=== PATIENT | female | born 1940 | race Caucasian/White ===

== ENCOUNTER 2016-08-23 21:55 | Emergency (ER) ==
[2016-08-23] MEDS ORDERED: ZOFRAN 4 MG/2 ML IVP STA ×2 (22:04→22:20)
--- NOTE | 2016-08-23 22:10 | ED.PDOC ---
General ED Provider: Dr. SHARMILA MANLEY Chief Complaint: Headache Stated Complaint: Patient is a 76 year old female how comes to the ER with Headache, nausea x 2 days she Vomited twice last night the started running a Fever started today with Body aches, Chills . She also feels weak. Time Seen by Physician: 22:22 Mode of Arrival: Wheelchair Information Source: Patient, Family Exam Limitations: No limitations Primary Care Provider: CHRISTIANO PAL Nursing and Triage Documentation Reviewed and Agree: Yes Neurological Complaint Exam - Headache Complaint/Exam Onset: Gradual Duration: 2 days Symptoms Are: Still present Timing: Constant Worst Headache Ever: No Initial Severity: Moderate Current Severity: Moderate Location: Right, Left, Frontal Character: Reports: Dull Aggravating: Reports: None Associated Signs and Symptoms: Reports: Nausea, Vomiting, Fever. Denies: Dizziness, Seizure, Sinus pressure, Neck pain, Neck stiffness, Decreased LOC, Visual changes Related History: Denies: Similar episode, Recent trauma, Remote trauma Related Surgical History: Reports: None SAH Risk Factors: Reports: None Meningitis Risk Factors: Reports: Elderly. Denies: Immune deficiency, IV drug abuse, Respiratory infection, Communal living, Alcohol abuse SDH Risk Factors: Reports: Elderly Normal Head CT Within Last 12 Months: No Fundoscopic Exam: Present: Normal Findings Papilledema Present: No Temporal Artery Tenderness: Present: None Sinus Tenderness: Present: None TMJ Tenderness: Present: None Glascow Coma Scale (see protocol): 15 Meningeal Signs Positive: No ROM Limited In: No Limitiations Focal Weakness: Present: None Focal Sensory Loss: Present: None Gait: Normal Nystagmus Present: No Gag Reflex Present: No [id number]: Normal Findings Romberg Test Positive: No Babinski Sign: Negative Right, Negative Left Heel to Toe Normal: No Differential Diagnoses: Tension Headache, Viral Syndrome Review of Systems - Review Of Systems Constitutional: Reports: Fever, Loss of appetite Eyes: Reports: No symptoms Ears, Nose, Mouth, Throat: Reports: No symptoms Respiratory: Reports: No symptoms Cardiac: Reports: No symptoms GI: Reports: Nausea, Vomiting : Reports: No symptoms Musculoskeletal: Reports: No symptoms Skin: Reports: No symptoms All Other Systems: Reviewed and Negative Past Medical History - Past Medical History Endocrine: Reports: None Cardiovascular: Reports: None Respiratory: Reports: None Hematological: Reports: None Gastrointestinal: Reports: None Genitourinary: Reports: None Neuro/Psych: Reports: Migraine, Anxiety, Depression Musculoskeletal: Reports: Arthritis (chronic neck pain ) Cancer: Reports: None Last Menstrual Period: 1965 - Surgical History General Surgical History: Reports: Hysterectomy, Appendectomy, Tonsillectomy, Back Surgery - Family History Family History: Reports: None - Social History Smoking Status: Former smoker Hx Substance Use: No Alcohol Screening: None - Immunizations Tetanus Shot up to Date: Yes Physical Exam - Physical Exam Appearance: Ill-appearing, Thin Ill-appearing: Moderate Pain Distress: Mild Eyes: JAVIER, EOMI, Conjunctiva clear ENT: Ears normal, Nose normal, Oropharynx normal Neck: Supple (no rigitidy) Respiratory: Airway patent, Breath sounds clear, Breath sounds equal, Respirations nonlabored Cardiovascular: Tachycardia GI/: Soft, Nontender, No masses Musculoskeletal: Normal strength, ROM intact, No edema, No calf tenderness Skin: Warm, Dry Neurological: Sensation intact, Motor intact, Reflexes intact, Cranial nerves intact, Alert, Oriented Psychiatric: Anxious Interpretation - Radiology Interpretation Radiology Interpretation By: Radiologist Radiology Results: Negative Exam Interpreted: CT Scan Radiology Interpretation By: ED Physician Radiology Results: Negative Exam Interpreted: CXR Critical Care Note - Critical Care Note Total Time (mins): 0 Course - Course Hematology/Chemistry: 08/23/16 22:30 08/23/16 22:30 Orders, Labs, Meds: Lab Review 08/23/16 08/23/16 22:30 22:40 WBC 16.57 H RBC 3.88 L Hgb 11.5 L Hct 34.9 L MCV 89.9 MCH 29.6 MCHC 33.0 RDW Coeff of Ella 15.0 H Plt Count 226 Immature Gran % (Auto) 0.5 Neut % (Auto) 81.9 Lymph % (Auto) 8.5 L [place] % (Auto) 7.4 Eos % (Auto) 1.3 Baso % (Auto) 0.4 Immature Gran # (Auto) 0.1 Neut # 13.6 H Lymph # 1.4 [place] # 1.2 Eos # 0.2 Baso # 0.1 Sodium 138 Potassium 3.2 L Chloride 101 Carbon Dioxide 26 Anion Gap 14.2 BUN 18 Creatinine 1.21 Estimated GFR (MDRD) 43.00 BUN/Creatinine Ratio 14.87 Glucose 149 H Calcium 8.7 Total Bilirubin 0.33 AST 16 ALT 12 Alkaline Phosphatase 94 Total Protein 7.2 Albumin 3.4 Globulin 3.8 Albumin/Globulin Ratio 0.89 Urine Color Yellow Urine Clarity Cloudy Urine pH 6.5 Ur Specific [place] 1.015 Urine Protein 2+ Urine Glucose (UA) Trace Urine Ketones Negative Urine Blood 1+ Urine Nitrite Positive Urine Bilirubin Negative Urine Urobilinogen 1.0 Ur Leukocyte Esterase 1+ Urine Microscopic RBC 5-10 Urine Microscopic WBC 5-10 Ur Squamous Epith Cells 2-5 Urine Bacteria 4+ Influenza A (Rapid) Negative Influenza B (Rapid) Negative Orders Category Date Time Status ED IV/MEDIPORT/POWERPORT .ONCE EMERGENCY 08/23/16 22:19 Active BLOOD CULTURE Stat LAB 08/23/16 22:30 Received CBC W/ AUTO DIFF Stat LAB 08/23/16 22:30 Completed COMPREHENSIVE METABOLIC PANEL Stat LAB 08/23/16 22:30 Completed MOLECULAR GROUP A STREP Stat LAB 08/23/16 22:30 Results RAPID FLU A/B Stat LAB 08/23/16 22:30 Completed STREP SCREEN Stat LAB 08/23/16 22:30 Results URINALYSIS C & S IF INDICATED Stat LAB 08/23/16 22:40 Completed URINE CULTURE Routine LAB 08/23/16 22:57 Received 0.9 % Sodium Chloride [Saline Flush] MEDS 08/23/16 22:20 Discontinued 1 syr IVF PRN PRN Acetaminophen [Tylenol] MEDS 08/23/16 22:19 Discontinued 1,000 mg PO ONCE STA Levofloxacin/D5w [Levaquin] 100 ml MEDS 08/23/16 23:28 Discontinued IV .STK-MED Levofloxacin/D5w [Levaquin] 500 mg MEDS 08/23/16 23:18 Discontinued Premix 100 ml D5w 1 bag IV ONCE Ondansetron HCl/Pf [Zofran 4 mg/2 ml] MEDS 08/23/16 22:20 Discontinued 4 mg IVP ONCE STA Sodium Chloride 0.9% [Sodium Chloride] 1,000 ml MEDS 08/23/16 22:20 Discontinued IV BOLUS CHEST, 2 VIEWS PA & LAT Stat RADS 08/23/16 22:[address] HEAD W/O CONTRAST Stat RADS 08/23/16 22:02 Completed Medications Discontinued Medications Generic Name Dose Route Start Last Admin Trade Name Freq PRN Reason Stop Dose Admin Acetaminophen 1,000 mg 08/23/16 22:19 08/23/16 22:28 Tylenol PO 08/23/16 22:20 1,000 mg ONCE STA Administration Sodium Chloride 1,000 mls @ 1,000 mls/hr 08/23/16 22:20 08/23/16 22:55 Sodium Chloride IV 08/23/16 23:19 1,000 mls/hr BOLUS STA Administration Levofloxacin/Dextrose 500 mg/ 100 mls @ 100 mls/hr 08/23/16 23:18 08/23/16 23 :37 Dextrose IV 08/24/16 00:17 100 mls/hr ONCE STA Administration Ondansetron HCl 4 mg 08/23/16 22:20 08/23/16 22:55 Zofran 4 Mg/2 Ml IVP 08/23/16 22:21 4 mg ONCE STA Administration Sodium Chloride 1 syr 08/23/16 22:20 08/23/16 22:55 Saline Flush IVF 1 syr PRN PRN Administration To flush IV Vital Signs: Temp Pulse Resp BP Pulse Ox 08/24/16 00:31 99.4 F 08/23/16 21:56 102.8 F H 112 H 20 135/81 94 L Departure - Departure Time of Disposition: 23:48 Disposition: HOME SELF-CARE Discharge Problem: Urinary tract infection Instructions: Urinary Tract Infection in Women (ED) Condition: Stable Pt referred to PMD for follow-up: Yes Additional Instructions: Push fluids Take medication as prescribed. Follow up with PCP in the morning return if worse. Prescriptions: Levofloxacin [Levaquin] 500 mg PO DAILY #7 tablet Tramadol HCl [Ultram] 25 mg PO Q6H PRN #10 tablet PRN Reason: Severe Pain Allergies/Adverse Reactions: Allergies amoxicillin Adverse Reaction (Verified 08/23/16 22:04) Rash codeine Adverse Reaction (Verified 08/23/16 22:04) gets gas Home Medications: Ambulatory Orders Calcium Carbonate [Calcium] 500 mg PO DAILY 08/23/16 Escitalopram Oxalate [Lexapro] 5 mg PO DAILY 08/23/16 Gabapentin [Neurontin] 200 mg PO BID 08/23/16 Levofloxacin [Levaquin] 500 mg PO DAILY #7 tablet 08/23/16 Multivitamin 1 cap PO DAILY 08/23/16 Omeprazole [Prilosec] 20 mg PO QDAC 08/23/16 Oxybutynin Chloride [Ditropan] 5 mg PO DAILY 08/23/16 Tramadol HCl [Ultram] 25 mg PO Q6H PRN #10 tablet 08/23/16 Tramadol HCl [Ultram] 50 mg PO BID 08/23/16 Disposition Discussed With: Patient, Family
[2016-08-23 22:11] VITALS: BP 135/81; BMI 21.8
[2016-08-23] MEDS ORDERED: ZOFRAN 4 MG/2 ML IM STA (22:13)
[2016-08-23] MEDS ORDERED: TYLENOL PO STA (22:19)
[2016-08-23] MEDS ORDERED: SODIUM CHLORIDE 1,000 ML IV STA (22:20)
[2016-08-23 22:39] LABS: BASOPHILS # (AUTO) 0.1 K/uL (0-0.2); BASOPHILS % (AUTO) 0.4 % (0.0-3.0); EOSINOPHILS # (AUTO) 0.2 K/ul (0.0-0.7); EOSINOPHILS % (AUTO) 1.3 % (0.0-7.0); HEMATOCRIT 34.9 % (37.0-47.0); HEMOGLOBIN 11.5 g/dl (12.0-16.0); IMMATURE GRANULOCYTE % (AUTO) 0.5 % (0.0-5.0); LYMPHOCYTES # (AUTO) 1.4 K/uL (0.60-3.4); LYMPHOCYTES % (AUTO) 8.5 (10.0-50.0); MEAN CORPUSCULAR HEMOGLOBIN 29.6 pg (27.0-31.0); MEAN CORPUSCULAR VOLUME 89.9 fl (81.0-99.0); MONOCYTES # (AUTO) 1.2 K/uL (0.4-2.0); MONOCYTES % (AUTO) 7.4 (0-10); NEUTROPHILS # (AUTO) 13.6 K/ul (2.0-6.9); NEUTROPHILS % (AUTO) 81.9; PLATELET COUNT 226 10^3/uL (140-440); RED BLOOD COUNT 3.88 10^6/ul (4.20-5.40); WHITE BLOOD COUNT 16.57 K/ul (4.6-10.2)
[2016-08-23 22:57] LABS: ADD URINE MICROSCOPIC YES; BILIRUBIN,URINE Negative (NEGATIVE); KETONES,URINE Negative (NEGATIVE); LEUKOCYTE ESTERASE ,URINE 1+ (NEGATIVE); NITRITE,URINE Positive (NEGATIVE); PH,URINE 6.5 (5-9); PROTEIN,URINE 2+ (NEGATIVE); URINE, BLOOD 1+ (NEGATIVE)
[2016-08-23 23:01] LABS: ALBUMIN 3.4 g/dL (3.4-5.0); ALBUMIN/GLOBULIN RATIO 0.89; ANION GAP 14.2; BILIRUBIN,TOTAL 0.33 mg/dL (0.00-1.20); BUN/CREATININE RATIO 14.87; CALCIUM 8.7 mg/dL (8.2-10.2); CREATININE 1.21 mg/dL (0.60-1.30); POTASSIUM 3.2 mmol/L (3.5-5.10); TOTAL PROTEIN 7.2 g/dL (5.8-8.1)
[2016-08-23 23:03] LABS: FLU INTERNAL QC INTERNAL QC VALID; RAPID FLU A NEGATIVE (NEGATIVE); RAPID FLU B NEGATIVE (NEGATIVE)
[2016-08-23 23:05] LABS: BACTERIA,URINE 4+ (NOT PRESENT)
--- NOTE | 2016-08-23 23:16 | CT ---
EXAM: CT head without contrast . 08/23/2016. Sagittal and coronal reformatted images obtained HISTORY: Headache COMPARISON: 02/22/2016 FINDINGS: There is no evidence of intracranial hemorrhage. The midline is maintained. There is no hydrocephalus. Generalized atrophy. Patchy low attenuation throughout the periventricular and subc ortical white matter likely due to chronic microvascular ischemic change. No cerebellar tonsillar e ctopia. Evaluation of the calvarium shows no fracture. The mastoid air cells are normally pneumati zed. IMPRESSION: 1. No intracranial hemorrhage. 2. Generalized atrophy 3. Extensive patchy low attenuation throughout the periventricular and subcortical white matter lik leonid due to chronic microvascular ischemic change. 4. If there is high clinical suspicion for acute ischemia then MRI may be of benefit.
[2016-08-23] MEDS ORDERED: LEVAQUIN 500 MG in PREMIX 100 ML D5W 1 BAG IV STA (23:18)
[2016-08-23] MEDS ORDERED: LEVAQUIN 100 ML IV ONE (23:28)
[2016-08-24 00:31] VITALS: TEMP 99.4
--- NOTE | 2016-08-24 07:35 | DI ---
EXAM: CHEST FRONTAL AND LATERAL VIEWS HISTORY: Fever. COMPARISON: 12/25/2013 FINDINGS: Heart size remains within normal limits. There are scattered calcifications suggesting ol d granulomatous disease. No acute infiltrates are seen. There is no consolidation, visible pleural fluid or pneumothorax. Bones reveal no acute fracture. Metallic foreign bodies superimposed over t he right neck. This has the appearance of possible shrapnel. Correlate with history. IMPRESSION: No acute cardiopulmonary process.]
== END 2016-08-24 00:47 | disposition home or self-care (01) ==
LOC: ED 21:55
DX: N39.0 Urinary tract infection, site not specified (principal); R51 Headache; R11.2 Nausea with vomiting, unspecified; Z79.899 Other long term (current) drug therapy
CPT/HCPCS: 36415; 80053; 81001; 85025; 87040; 87086; 87186; 87651; 87804; 87880; 96361; 96365; 96375; 99283

== ENCOUNTER 2016-09-12 08:09 | Outpatient (CLI) ==
[2016-09-12 08:42] LABS: CREATININE 0.9 mg/dL (0.60-1.30)
--- NOTE | 2016-09-12 10:30 | CT ---
EXAM: CT soft tissue neck with contrast HISTORY: Supraclavicular mass COMPARISON: CT neck 10/31/[address] cervical spine 12/25/2013 TECHNIQUE: Serial axial images of the neck were obtained after 75 ml of Omnipaque IV contrast was a dministered. These were viewed in multiple planes. FINDINGS: Limited views of the intracranial contents demonstrate no abnormal contrast enhancing les ion. The orbital globes and retrobulbar structures are normal. The ethmoid air cells demonstrate m ild scattered mucosal thickening. The paranasal sinuses are otherwise clear. The mastoid air cells are clear. The visualized vessels contrast enhance normally. The right parotid and left parotid g lands are normal. The submandibular glands are normal. The thyroid is normal. There is a right pa ratracheal lymph node measuring 0.5 cm present on exam 2014. There is a pretracheal lymph node on i mage 74 measuring 0.8 cm in diameter. Mediastinum is otherwise unremarkable. There is a left supraclavicular focal rounded area of low attenuation fat measuring 5.2 x 3.3 cm unc hanged from 2012. No focal soft tissue is identified. The lungs are unremarkable. IMPRESSION: 1. 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 2. Paratracheal lymph nodes are stable since 2014.
== END 2016-09-12 08:10 | disposition home or self-care (01) ==
LOC: RAD 08:09
PROVIDERS: ATTEND Family Medicine
DX: R22.2 Localized swelling, mass and lump, trunk (principal)
CPT/HCPCS: 36415; 82565

== ENCOUNTER 2016-10-29 10:15 | Emergency (ER) ==
[2016-10-29 10:25] VITALS: BP 163/108; TEMP 97.5; BMI 22.8
[2016-10-29] MEDS ORDERED: NORCO 10-325 PO STA (10:33)
--- NOTE | 2016-10-29 10:53 | DI ---
Exam: Right knee four views History: Knee pain Findings / impression: No acute bony or articular abnormality. Mild tricompartmental osteoarthriti c change manifest by marginal osteophytosis. Spurring on the superior pole of the patellar tendon.
--- NOTE | 2016-10-29 11:10 | ED.PDOC ---
General ED Provider: Dr. MAIDA DAVILA Chief Complaint: Knee Pain/Injury Stated Complaint: knee pain Time Seen by Physician: 10:19 Mode of Arrival: Wheelchair Information Source: Patient, Family Exam Limitations: No limitations Primary Care Provider: CHRISTIANO PAL Nursing and Triage Documentation Reviewed and Agree: Yes Musculoskeletal Complaint Exam - Knee Pain Complaint/Exam Mechanism of Injury: Reports: No known trauma Onset/Duration: 1 day Symptoms Are: Still present Onset of Pain: Reports: Hours Initial Severity: Moderate Current Severity: Moderate Character: Reports: Throbbing, Spasmodic, Stiffness Alleviating: Reports: Rest, Position Aggravating: Reports: None Associated Signs and Symptoms: Denies: Swelling, Redness, Bruising, Fever, Weakness, Numbness, Tingling Able to Bear Weight: Yes Related History: Reports: Similar episode Septic Arthritis Risk Factors: Reports: None Gout Risk Factors: Reports: None Berta Test Positive: No Kurtis Test Positive: No Limited Range of Motion: Present: Active Differential Diagnoses: Closed Fracture, Internal Derangement, Sprain, Strain Review of Systems - Review Of Systems Constitutional: Reports: No symptoms Eyes: Reports: No symptoms Ears, Nose, Mouth, Throat: Reports: No symptoms Respiratory: Reports: No symptoms Cardiac: Reports: No symptoms GI: Reports: No symptoms : Reports: No symptoms Musculoskeletal: Reports: Joint pain Skin: Reports: No symptoms Neurological: Reports: No symptoms Endocrine: Reports: No symptoms Hematologic/Lymphatic: Reports: No symptoms All Other Systems: Reviewed and Negative Past Medical History - Past Medical History Endocrine: Reports: None Cardiovascular: Reports: None Respiratory: Reports: None Hematological: Reports: None Gastrointestinal: Reports: None Genitourinary: Reports: None Neuro/Psych: Reports: Migraine, Anxiety, Depression Musculoskeletal: Reports: Arthritis (chronic neck pain ) Cancer: Reports: None Last Menstrual Period: menopause - Surgical History General Surgical History: Reports: Hysterectomy, Appendectomy, Tonsillectomy, Back Surgery - Family History Family History: Reports: None - Social History Smoking Status: Former smoker Hx Substance Use: Yes (marijuana) Alcohol Screening: None - Immunizations Tetanus Shot up to Date: No Physical Exam - Physical Exam Appearance: Well-appearing, No pain distress, Well-nourished Eyes: JAVIER, EOMI, Conjunctiva clear ENT: Ears normal, Nose normal, Oropharynx normal Respiratory: Airway patent, Breath sounds clear, Breath sounds equal, Respirations nonlabored Cardiovascular: RRR, Pulses normal, No rub, No murmur GI/: Soft, Nontender, No masses, Bowel sounds normal, No Organomegaly Musculoskeletal: Limited ROM (right knee) Skin: Warm, Dry, Normal color Neurological: Sensation intact, Motor intact, Reflexes intact, Cranial nerves intact, Alert, Oriented Psychiatric: Affect appropriate, Mood appropriate Interpretation - Radiology Interpretation Radiology Interpretation By: Radiologist Radiology Results: No acute changes Critical Care Note - Critical Care Note Total Time (mins): 0 Course - Course Orders, Labs, Meds: Orders Category Date Time Status JORGE [ED JORGE WRAP] .ONCE EMERGENCY 10/29/16 11:11 Active Hydrocodone Bit/Acetaminophen [[place] 10-325] MEDS 10/29/16 10:33 Discontinued 1 tab PO ONCE STA KNEE, RIGHT 4 VIEWS Stat RADS 10/29/16 10:37 Completed Medications Discontinued Medications Generic Name Dose Route Start Last Admin Trade Name Freq PRN Reason Stop Dose Admin Acetaminophen/Hydrocodone Bitart 1 tab 10/29/16 10:33 10/29/16 10:47 [place] 10-325 PO 10/29/16 10:34 1 tab ONCE STA Administration Vital Signs: Temp Pulse Resp BP Pulse Ox 10/29/16 10:16 97.5 F L 75 20 163/108 H 98 Departure - Departure Time of Disposition: 11:09 Disposition: HOME SELF-CARE Discharge Problem: Knee pain Right knee pain Qualifiers: Chronicity: unspecified Qualifier Code: (M25.561) Pain in right knee Instructions: Knee Pain (ED), Arthralgia (ED) Condition: Good Pt referred to PMD for follow-up: No Additional Instructions: Please call your Family Physician as soon as possible to schedule a follow-up appointment. NORCO 5/325: 3 times a day for 5 days Allergies/Adverse Reactions: Allergies amoxicillin Adverse Reaction (Verified 10/29/16 10:26) Rash codeine Adverse Reaction (Verified 10/29/16 10:26) gets gas Home Medications: Ambulatory Orders Calcium Carbonate [Calcium] 500 mg PO DAILY 08/23/16 Escitalopram Oxalate [Lexapro] 5 mg PO DAILY 08/23/16 Gabapentin [Neurontin] 200 mg PO BID 08/23/16 Multivitamin 1 cap PO DAILY 08/23/16 Omeprazole [Prilosec] 20 mg PO QDAC 08/23/16 Oxybutynin Chloride [Ditropan] 5 mg PO DAILY 08/23/16 Tramadol HCl [Ultram] 25 mg PO DAILY 10/29/16
== END 2016-10-29 11:24 | disposition home or self-care (01) ==
LOC: ED 10:15
DX: M25.561 Pain in right knee (principal)
CPT/HCPCS: 99282

== ENCOUNTER 2016-11-17 13:03 | Outpatient (CLI) | payer OTHER | END 2016-11-17 13:04 | disposition home or self-care (01) | LOC: CAR 13:03 | PROVIDERS: ATTEND Family Medicine | DX: R06.02 Shortness of breath (principal) ==

== ENCOUNTER 2016-12-10 14:37 | Emergency (ER) | payer OTHER ==
[2016-12-10 14:42] VITALS: BP 141/73; TEMP 98.3; BMI 23.5
--- NOTE | 2016-12-10 14:44 | ED.PDOC ---
General ED Provider: Dr. MI SAENZ JR Chief Complaint: Cough Stated Complaint: sore throat, fever, cough with green phlegm. [ End ]1 week 98.3 94 20 94% 141/73 Time Seen by Physician: 14:44 Mode of Arrival: Walk-In Information Source: Patient Exam Limitations: No limitations Primary Care Provider: CHRISTIANO PAL Nursing and Triage Documentation Reviewed and Agree: No Review of Systems - Review Of Systems Constitutional: Reports: Malaise Eyes: Reports: No symptoms Ears, Nose, Mouth, Throat: Reports: No symptoms Respiratory: Reports: Cough Cardiac: Reports: No symptoms GI: Reports: No symptoms : Reports: No symptoms Musculoskeletal: Reports: No symptoms Skin: Reports: No symptoms Neurological: Reports: No symptoms Endocrine: Reports: No symptoms Hematologic/Lymphatic: Reports: No symptoms All Other Systems: Other Past Medical History - Past Medical History Endocrine: Reports: None Cardiovascular: Reports: None Respiratory: Reports: None Hematological: Reports: None Gastrointestinal: Reports: None Genitourinary: Reports: None Neuro/Psych: Reports: Migraine, Anxiety, Depression Musculoskeletal: Reports: Arthritis (chronic neck pain ), Back Pain Cancer: Reports: None Last Menstrual Period: none - Surgical History General Surgical History: Reports: Hysterectomy (1964), Appendectomy, Cholecystectomy, Tonsillectomy, Back Surgery - Family History Family History: Reports: None - Social History Smoking Status: Former smoker Hx Substance Use: Yes (marijuana) Alcohol Screening: None Physical Exam - Physical Exam Appearance: Well-appearing, Thin Pain Distress: Moderate Eyes: JAVIER, EOMI, Conjunctiva clear ENT: Ears normal, Nose normal, Oropharynx normal Neck: Supple Respiratory: Breath sounds diminished Cardiovascular: RRR, Pulses normal, No rub, No murmur GI/: Soft, Nontender, No masses, Bowel sounds normal, No Organomegaly Musculoskeletal: Normal strength, ROM intact, No edema, No calf tenderness Skin: Warm, Dry, Normal color Neurological: Sensation intact, Motor intact, Reflexes intact, Cranial nerves intact, Alert, Oriented Interpretation - Radiology Interpretation Radiology Interpretation By: Radiologist Radiology Results: Negative Exam Interpreted: CXR Critical Care Note - Critical Care Note Total Time (mins): 0 Course - Course Orders, Labs, Meds: Orders Category Date Time Status Ceftriaxone Sodium [Rocephin] MEDS 12/10/16 14:48 Discontinued 1 gm IM ONCE STA Lidocaine HCl/Pf [Lidocaine 1 % Amp 5 ml (Sutures)] MEDS 12/10/16 14:48 Discontinued 2.1 ml IM ONCE STA Methylprednisolone Sod Succ/Pf [Solu-Medrol 125 mg] MEDS 12/10/16 14:48 Discontinued 125 mg IM ONCE STA CHEST, 2 VIEWS PA & LAT Stat RADS 12/10/16 14:44 Completed Medications Discontinued Medications Generic Name Dose Route Start Last Admin Trade Name Tanvi PRN Reason Stop Dose Admin Ceftriaxone Sodium 1 gm 12/10/16 14:48 12/10/16 15:06 Rocephin IM 12/10/16 14:49 1 gm ONCE STA Administration Lidocaine HCl 2.1 ml 12/10/16 14:48 12/10/16 15:07 Lidocaine 1 % Amp 5 Ml (Sutures) IM 12/10/16 14:49 2.1 ml ONCE STA Administration Methylprednisolone Sodium Succinate 125 mg 12/10/16 14:48 12/10/16 15:07 Solu-Medrol 125 Mg IM 12/10/16 14:49 125 mg ONCE STA Administration Vital Signs: Temp Pulse Resp BP Pulse Ox 12/10/16 14:37 98.3 F 94 H 20 141/73 H 94 L Departure - Departure Time of Disposition: 15:13 Disposition: HOME SELF-CARE Discharge Problem: COPD (chronic obstructive pulmonary disease) with acute bronchitis Instructions: COPD (Chronic Obstructive Pulmonary Disease) (ED) Condition: Good Pt referred to PMD for follow-up: Yes Additional Instructions: call PMD this week for follow up return if short of air if fever over 101.0 Allergies/Adverse Reactions: Allergies amoxicillin Adverse Reaction (Verified 12/10/16 14:40) Rash codeine Adverse Reaction (Verified 12/10/16 14:40) gets gas Home Medications: Ambulatory Orders Calcium Carbonate [Calcium] 500 mg PO DAILY 08/23/16 Escitalopram Oxalate [Lexapro] 5 mg PO DAILY 08/23/16 Oxybutynin Chloride [Ditropan] 5 mg PO DAILY 08/23/16 Tramadol HCl [Ultram] 25 mg PO DAILY 10/29/16
[2016-12-10] MEDS ORDERED: ROCEPHIN IM STA (14:48)
[2016-12-10] MEDS ORDERED: SOLU-MEDROL 125 MG IM STA (14:48)
[2016-12-10] MEDS ORDERED: LIDOCAINE 1 % AMP 5 ML (SUTURES) IM STA (14:48)
--- NOTE | 2016-12-10 15:07 | DI ---
EXAM: PA and lateral views of the chest HISTORY: Cough COMPARISON: Chest Xray from 08/23/2016 FINDINGS: The examination is stable. Lungs are clear with no lobar consolidation, failure, large eff usion or significant atelectasis. There is prior granulomatous disease. The cardiomediastinal silhou ette is otherwise unremarkable. No acute osseous or soft tissue abnormalities. There has been prior right shoulder surgery and prior lumbar fusion. IMPRESSION: No active disease.
== END 2016-12-10 15:28 | disposition home or self-care (01) ==
LOC: ED 14:37
DX: J44.0 Chronic obstructive pulmonary disease with (acute) lower respiratory infection (principal); J20.9 Acute bronchitis, unspecified; Z79.899 Other long term (current) drug therapy
CPT/HCPCS: 96372; 99282

== ENCOUNTER 2017-01-05 18:45 | Emergency (ER) ==
[2017-01-05 18:48] VITALS: BP 160/75; TEMP 98.4; BMI 23.8
--- NOTE | 2017-01-05 19:11 | ED.PDOC ---
General ED Provider: Dr. ZULLY MORRISON Chief Complaint: Fall Stated Complaint: While shopping at [employer], she tripped over fell hurt back of the head. NO LOC, Time Seen by Physician: 19:09 Mode of Arrival: Walk-In Information Source: Patient Primary Care Provider: CHRISTIANO PAL Nursing and Triage Documentation Reviewed and Agree: Yes Trauma/Injury Complaint Exam - Head Injury Complaint/Exam Location of Pain: Reports: Scalp Mechanism of Injury: Reports: Trauma Symptoms Are: Still present Initial Severity: Mild Current Severity: None Character: Reports: Dull Aggravating: Reports: None Alleviating: Reports: None Associated Signs and Symptoms: Denies: Confusion, Memory loss, Seizure, Epistaxis, Dental malocclusion, Neck pain, Nausea, Vomiting Loss of Consciousness: None SDH Risk Factors: Present: None Cervical Spine Injury Risk Factors: Present: None Related Surgical History: Reports: None Head Injury Findings: Present: Normal findings Focal Weakness: Present: None Focal Sensory Loss: Present: None Gait: Normal Gag Reflex Present: Yes Finger to Nose: Normal Rhomberg Test Positive: No Babinski Sign: Negative Right, Negative Left Heel to Toe Normal: Yes Differential Diagnoses: Intracranial Bleed Review of Systems - Review Of Systems Constitutional: Reports: No symptoms Eyes: Reports: No symptoms Ears, Nose, Mouth, Throat: Reports: No symptoms Respiratory: Reports: No symptoms Cardiac: Reports: No symptoms GI: Reports: No symptoms : Reports: No symptoms Musculoskeletal: Reports: No symptoms Skin: Reports: No symptoms Neurological: Reports: Headache Endocrine: Reports: No symptoms Hematologic/Lymphatic: Reports: No symptoms All Other Systems: Reviewed and Negative Past Medical History - Past Medical History Previously Healthy: Yes Endocrine: Reports: None Cardiovascular: Reports: None Respiratory: Reports: None Hematological: Reports: None Gastrointestinal: Reports: None Genitourinary: Reports: None Neuro/Psych: Reports: Migraine, Anxiety, Depression Musculoskeletal: Reports: Arthritis (chronic neck pain ), Back Pain Cancer: Reports: None Last Menstrual Period: NONE - Surgical History General Surgical History: Reports: Hysterectomy (1964), Appendectomy, Cholecystectomy, Tonsillectomy, Back Surgery - Family History Family History: Reports: None - Social History Smoking Status: Former smoker Hx Substance Use: Yes (marijuana) Alcohol Screening: None Physical Exam - Physical Exam Appearance: Well-appearing, No pain distress, Well-nourished Eyes: JAVIER, EOMI, Conjunctiva clear ENT: Ears normal, Nose normal, Oropharynx normal Respiratory: Airway patent, Breath sounds clear, Breath sounds equal, Respirations nonlabored Cardiovascular: RRR, Pulses normal, No rub, No murmur GI/: Soft, Nontender, No masses, Bowel sounds normal, No Organomegaly Musculoskeletal: Normal strength, ROM intact, No edema, No calf tenderness Skin: Warm, Dry, Normal color Neurological: Sensation intact, Motor intact, Reflexes intact, Cranial nerves intact, Alert, Oriented Psychiatric: Affect appropriate, Mood appropriate Interpretation - Radiology Interpretation Radiology Interpretation By: Radiologist Radiology Results: Negative Exam Interpreted: CT Scan Critical Care Note - Critical Care Note Total Time (mins): 0 Course - Course Orders, Labs, Meds: Orders Category Date Time Status CT CERVICAL SPINE W/O CONTRAST Stat RADS 01/05/17 19:[address] HEAD W/O CONTRAST Stat RADS 01/05/17 19:08 Completed Vital Signs: Temp Pulse Resp BP Pulse Ox 01/05/17 18:45 98.4 F 86 16 160/75 H 95 Departure - Departure Time of Disposition: 19:54 Disposition: HOME SELF-CARE Discharge Problem: Falls Instructions: Fall Prevention for Older Adults (ED) Condition: Stable Pt referred to PMD for follow-up: No Additional Instructions: Fall precautions Monitor for 2-3 days Allergies/Adverse Reactions: Allergies amoxicillin Adverse Reaction (Verified 01/05/17 18:48) Rash codeine Adverse Reaction (Verified 01/05/17 18:48) gets gas Home Medications: Ambulatory Orders Calcium Carbonate [Calcium] 500 mg PO DAILY 08/23/16 Escitalopram Oxalate [Lexapro] 5 mg PO DAILY 08/23/16 Tramadol HCl [Ultram] 25 mg PO DAILY 10/29/16 Mirabegron [Myrbetriq] 25 mg PO DAILY 01/05/17 Disposition Discussed With: Patient, Family
--- NOTE | 2017-01-05 19:44 | CT ---
EXAM: CT of the head without contrast. HISTORY: Fall.. COMPARISON: 08/23/2016 TECHNIQUE: Contiguous axial images at 5 mm intervals were obtained from the base of the skull to th e vertex the calvarium. No contrast was given. FINDINGS: On the very first image, there is a metallic density adjacent to the zygomatic arch on th e left. This measures 1.4 mm. Prior facial bone CT demonstrated multiple fragments in the soft tis sues of the left side of the face. The CSF containing spaces are diffusely enlarged consistent with atrophy. There are no extraaxial fluid collections. There is no evidence of an acute intracranial hemorrhage. There are no masses or mass effect. Hypodensities are seen in the periventricular whi te matter consistent with chronic ischemic changes from small vessel disease. There are no acute va scular territory infarcts. Carotid artery and vertebral artery calcifications are seen. The osseo us structures are normal. The extracranial soft tissues are otherwise unremarkable. IMPRESSION: Chronic age-related changes. No acute abnormalities.
--- NOTE | 2017-01-05 19:49 | CT ---
EXAM: CT cervical spine. HISTORY: Fall, pain. TECHNIQUE: CT cervical spine without contrast. Detailed axial sections. Coronal and sagittal re-f ormations. COMPARISON: 12/25/2013 FINDINGS: Degenerative disc and facet disease is severe, noticeably increased since 2014. There is grossly st able anterior spondylolisthesis of C3 relative to C4 by about 0.27 cm. Reversal of normal cervical lordosis centered at C4. No acute fracture or significant loss of vertebral body height. Facet nereyda nts are covered. Lateral masses of C1 and C2 are normally aligned and the odontoid process is intact . Prevertebral soft tissue thickness is within normal limits. The degenerative changes lead to mul tilevel central canal and neural foraminal stenosis most apparent at C4/C5, moderate. No paraspinal hematoma is identified. Metallic soft tissue foreign bodies are again noted along the mid neck sug gesting shrapnel. IMPRESSION: No acute fracture. Severe degenerative changes worsened since previous exam.
== END 2017-01-05 20:04 | disposition home or self-care (01) ==
LOC: ED 18:45
DX: S09.90XA Unspecified injury of head, initial encounter (principal); W01.0XXA Fall on same level from slipping, tripping and stumbling without subsequent striking against object, initial encounter; Y92.512 Supermarket, store or market as the place of occurrence of the external cause; Z79.899 Other long term (current) drug therapy
CPT/HCPCS: 99283

== ENCOUNTER 2017-06-20 10:19 | Emergency (ER) ==
[2017-06-20 10:35] VITALS: BP 163/85; TEMP 98.6; BMI 23.5
--- NOTE | 2017-06-20 10:48 | ED.PDOC ---
General ED Provider: Dr. BEV VACA Chief Complaint: Fall Stated Complaint: Tripped over ledge, landed on upper left arm, jammed Left and Right wrist - last night Time Seen by Physician: 11:20 Mode of Arrival: Walk-In Information Source: Patient Exam Limitations: No limitations [facility] and Triage Documentation Reviewed and Agree: Yes Review of Systems - Review Of Systems Constitutional: Reports: No symptoms Ears, Nose, Mouth, Throat: Reports: No symptoms Respiratory: Reports: No symptoms Musculoskeletal: Reports: Joint pain (L and R wrist), Joint swelling (L wrist) Skin: Reports: Bruising (Upper Left arm) Neurological: Reports: No symptoms All Other Systems: Reviewed and Negative Past Medical History - Past Medical History Previously Healthy: Yes Endocrine: Reports: None Cardiovascular: Reports: None Respiratory: Reports: None Hematological: Reports: None Gastrointestinal: Reports: None Genitourinary: Reports: None Neuro/Psych: Reports: Migraine, Anxiety, Depression Musculoskeletal: Reports: Arthritis (chronic neck pain ), Back Pain Cancer: Reports: None Last Menstrual Period: unknown - Surgical History General Surgical History: Reports: Hysterectomy (1964), Appendectomy, Cholecystectomy, Tonsillectomy, Back Surgery - Family History Family History: Reports: None - Social History Smoking Status: Former smoker Hx Substance Use: Yes (marijuana) Alcohol Screening: None Physical Exam - Physical Exam Appearance: Well-appearing Pain Distress: Mild Eyes: JAVIER, EOMI, Conjunctiva clear ENT: Nose normal, Oropharynx normal Neck: Supple Respiratory: Airway patent, Breath sounds clear, Breath sounds equal Cardiovascular: RRR, Pulses normal Musculoskeletal: Limited ROM (Secondary to mild pain, L wrist, R wrist and L upper arm) Skin: Warm, Dry, Normal color Neurological: Sensation intact, Motor intact, Alert, Oriented Psychiatric: Affect appropriate, Mood appropriate Interpretation - Radiology Interpretation Radiology Interpretation By: Radiologist Radiology Results: Negative Exam Interpreted: Other (L humerus; R and L wrists) Xray Comments: No acute changes Critical Care Note - Critical Care Note Total Time (mins): 10 Course - Course Orders, Labs, Meds: Orders Category Date Time Status HUMERUS, LEFT 2VIEWS Stat RADS 06/20/17 10:44 Completed WRIST, LEFT 3 VIEWS Stat RADS 06/20/17 10:44 Completed WRIST, RIGHT 3 VIEWS Stat RADS 06/20/17 10:44 Completed Vital Signs: Temp Pulse Resp BP Pulse Ox 06/20/17 10:19 98.6 F 78 20 163/85 H 94 L Departure - Departure Time of Disposition: 11:39 Disposition: HOME SELF-CARE Discharge Problem: Contusion of arm, left Contusion Qualifiers: Encounter type: initial encounter Contusion area: wrist Instructions: Contusion in Adults (ED) Condition: Good Pt referred to PMD for follow-up: Yes (Call for appointment) Additional Instructions: Cold off and on first 24 hours to affected areas; heat thereafter. Tylenol and/ or Ibuprofen for discomfort Allergies/Adverse Reactions: Allergies amoxicillin Adverse Reaction (Verified 06/20/17 10:32) Rash codeine Adverse Reaction (Verified 06/20/17 10:32) gets gas Home Medications: Ambulatory Orders Calcium Carb/Vitamin D3/Vit K1 [Calcium + D Soft Chewable Tab] 1 each PO BID 02/22 Calcium Polycarbophil [Fiber Tabs] 500 mg PO TID 06/15/17 Ditropan Xl 5 mg PO d 06/15/17 Gabapentin 300 mg PO TID 06/15/17 Multivitamin [Multi-Day Vitamins] 1 each PO d 06/15/17 Omeprazole Magnesium [Prilosec Otc] 20 mg PO d 06/15/17 Disposition Discussed With: Patient, Family
--- NOTE | 2017-06-20 11:10 | DI ---
Exam: Two x-rays of the left humerus. Comparison: None available. Reason for exam: Fall. FINDINGS: The left humerus is intact. No evidence of fracture or malalignment. No unexplained calc ific soft tissue density or radiopaque retained foreign body. Impression: No acute fracture or malalignment in the left humerus
--- NOTE | 2017-06-20 11:12 | DI ---
EXAM: Left wrist three-view HISTORY: Fall COMPARISON: 09/27/2014 FINDINGS: No fracture or dislocation. Severe osteoarthritis throughout the wrist, greatest at the f irst CMC joint and radiocarpal articulations. Additionally, there is remodeling of the distal radius with widening of the scapholunate distance and displacement of the capitate into this region, consis tent with scapholunate advanced collapse. Well-marginated ossification about the posterior wrist appe ars unchanged and may be due to old trauma or ossification center. IMPERSSION: 1. No fracture or dislocation. 2. Severe osteoarthritis with scapholunate advanced collapse.
--- NOTE | 2017-06-20 11:12 | DI ---
Exam: Three x-rays of the right wrist. Comparison: 09/27/2014. Reason for exam: Fall. FINDINGS: No acute fracture or malalignment. Degenerative findings are seen in the wrist with joint space narrowing and sclerotic change in the right first carpometacarpal joint space. No unexplained calcific soft tissue density or radiopaque retained foreign body. Impression: 1. No obvious fracture or malalignment in the right wrist. 2. Moderate to marked degenerative disease within the wrist with joint space narrowing, sclerotic ch ethan, and subchondral cyst formation
== END 2017-06-20 12:17 | disposition home or self-care (01) ==
LOC: ED 10:19
DX: S40.022A Contusion of left upper arm, initial encounter (principal); S60.219A Contusion of unspecified wrist, initial encounter; W01.0XXA Fall on same level from slipping, tripping and stumbling without subsequent striking against object, initial encounter
CPT/HCPCS: 99283

== ENCOUNTER 2017-06-23 13:21 | Inpatient (IN) | payer OTHER ==
--- NOTE | 2017-06-23 13:28 | ED.PDOC ---
General ED Provider: Dr. ZULLY MORRISON Chief Complaint: Altered Mental Status Stated Complaint: Patient brought by family as she was having trouble talking and she was weak. Time Seen by Physician: 13:26 Primary Care Provider: ZULLY [facility] Nursing and Triage Documentation Reviewed and Agree: Yes Neurological Complaint Exam - Weakness Complaint/Exam Onset: Sudden Symptoms Are: Resolved Timing: Constant Episodes Lasting: Hours Initial Severity: Moderate Current Severity: Mild Character: Reports: Lightheaded Aggravating: Reports: None Alleviating: Reports: None Associated Signs and Symptoms: Reports: Unsteady gait, Loss of balance. Denies : Nausea, Vomiting, Diaphoresis, Tinnitus, Chest pain, Short of air, Palpitations, GI blood loss, Visual changes, Decreased oral intake, Change in medication, Change in diet, OTC meds Cardiac Risk Factors: Reports: Hypertension, Smoking CVA Risk Factors: Reports: Hypertension, Smoking Related Surgical History: Reports: None JVD Present: No Carotid Bruit Present: No Rectal Heme Positive: No Nystagmus Present: No Gag Reflex Present: Yes Meningeal Signs Positive: No Focal Weakness: Present: None Focal Sensory Loss: Present: None Gait: Unable [id number]: Normal Findings Romberg Test Positive: No Babinski Sign: Negative Right, Negative Left Differential Diagnoses: Metabolic abnormalities, Other (TIA) Quality Indicators for Cardiac Chest Pain: EKG in 10min., ASA if indicated Review of Systems - Review Of Systems Constitutional: Reports: Malaise, Weakness Eyes: Reports: No symptoms Ears, Nose, Mouth, Throat: Reports: No symptoms Respiratory: Reports: No symptoms Cardiac: Reports: No symptoms GI: Reports: No symptoms : Reports: No symptoms Musculoskeletal: Reports: No symptoms Skin: Reports: No symptoms Neurological: Reports: No symptoms Endocrine: Reports: No symptoms Hematologic/Lymphatic: Reports: No symptoms All Other Systems: Reviewed and Negative Past Medical History - Past Medical History Previously Healthy: Yes Endocrine: Reports: None Cardiovascular: Reports: None Respiratory: Reports: None Hematological: Reports: None Gastrointestinal: Reports: None Genitourinary: Reports: None Neuro/Psych: Reports: Migraine, Anxiety, Depression Musculoskeletal: Reports: Arthritis (chronic neck pain ), Back Pain Cancer: Reports: None - Surgical History General Surgical History: Reports: Hysterectomy (1965), Appendectomy, Cholecystectomy, Tonsillectomy, Back Surgery - Family History Family History: Reports: None - Social History Smoking Status: Former smoker Hx Substance Use: Yes (marijuana) Alcohol Screening: None Physical Exam - Physical Exam Appearance: Ill-appearing, Thin Eyes: EOMI, Conjunctiva clear ENT: Ears normal, Nose normal, Oropharynx normal Respiratory: Airway patent, Breath sounds clear, Breath sounds equal, Respirations nonlabored Cardiovascular: RRR, Pulses normal, No rub, No murmur GI/: Soft, Nontender, No masses, Bowel sounds normal, No Organomegaly Musculoskeletal: Normal strength, ROM intact, No edema, No calf tenderness Skin: Warm, Dry, Normal color Neurological: Sensation intact, Motor intact, Reflexes intact, Cranial nerves intact, Alert, Oriented Psychiatric: Affect appropriate, Mood appropriate Interpretation - Radiology Interpretation Radiology Interpretation By: Radiologist Radiology Results: Positive Exam Interpreted: CT Scan Critical Care Note - Critical Care Note Total Time (mins): 30 Course - Course Hematology/Chemistry: 06/23/17 13:26 06/23/17 13:26 Orders, Labs, Meds: Lab Review 06/23/17 06/23/17 13:26 13:26 WBC 9.14 RBC 4.22 Hgb 13.4 Hct 40.1 MCV 95.0 MCH 31.8 H MCHC 33.4 RDW Coeff of Ella 13.2 Plt Count 261 Immature Gran % (Auto) 0.3 Neut % (Auto) 53.1 Lymph % (Auto) 33.8 [place] % (Auto) 7.4 Eos % (Auto) 4.7 Baso % (Auto) 0.7 Immature Gran # (Auto) 0.0 Neut # 4.9 Lymph # 3.1 [place] # 0.7 Eos # 0.4 Baso # 0.1 Sodium 141 Potassium 3.4 L Chloride 101 Carbon Dioxide 27 Anion Gap 16.4 BUN 9 Creatinine 1.01 Estimated GFR (MDRD) 53.00 BUN/Creatinine Ratio 8.91 Glucose 125 H Calcium 9.0 Total Bilirubin 0.51 AST 24 ALT 28 Alkaline Phosphatase 121 Total Creatine Kinase 39 Troponin I < 0.0100 Total Protein 7.5 Albumin 3.8 Globulin 3.7 Albumin/Globulin Ratio 1.03 Salicylate Level mg/dL < 5.0 Orders Category Date Time Status EKG-(ED ONLY) Stat CARDIO 06/23/17 13:25 Completed ED IV/MEDIPORT/POWERPORT .ONCE EMERGENCY 06/23/17 13:23 Active ASPIRIN LEVEL [SALICYLATE] Stat LAB 06/23/17 13:26 Completed CBC W/ AUTO DIFF Stat LAB 06/23/17 13:26 Completed COMPREHENSIVE METABOLIC PANEL Stat LAB 06/23/17 13:26 Completed CREATINE KINASE Stat LAB 06/23/17 13:26 Completed TROPONIN I Stat LAB 06/23/17 13:26 Completed UA [URINALYSIS C & S IF INDICATED] Stat LAB 06/23/17 13:40 Uncollected URINALYSIS C & S IF INDICATED Stat LAB 06/23/17 13:25 Uncollected 0.9 % Sodium Chloride [Saline Flush] MEDS 06/23/17 13:23 Ordered 1 syr IVF PRN PRN Aspirin [Aspirin Chewable] MEDS 06/23/17 13:40 Discontinued 324 mg PO ONCE STA CT HEAD W/O CONTRAST Stat RADS 06/23/17 13:23 Completed CXR [CHEST, 1V AP ONLY] Stat RADS 06/23/17 13:25 Taken Medications Generic Name Dose Route Start Last Admin Trade Name Freq PRN Reason Stop Dose Admin Sodium Chloride 1 syr 06/23/17 13:23 Saline Flush IVF PRN PRN To flush IV Discontinued Medications Generic Name Dose Route Start Last Admin Trade Name Freq PRN Reason Stop Dose Admin Aspirin 324 mg 06/23/17 13:40 06/23/17 13:52 Aspirin Chewable PO 06/23/17 13:41 324 mg ONCE STA Administration Vital Signs: Temp Pulse Resp BP Pulse Ox 06/23/17 13:22 98.1 F 85 20 177/99 H 95 Departure - Departure Time of Disposition: 14:47 Disposition: ADMITTED INPATIENT Discharge Problem: TIA (transient ischemic attack) Qualifiers: Transient cerebral ischemia type: unspecified Qualified Code(s): G45.9 - Transient cerebral ischemic attack, unspecified Instructions: Transient Ischemic Attack (ED) Condition: Stable Pt referred to PMD for follow-up: Yes Allergies/Adverse Reactions: Allergies amoxicillin Adverse Reaction (Verified 06/23/17 13:37) Rash codeine Adverse Reaction (Verified 06/23/17 13:37) gets gas Home Medications: Ambulatory Orders Calcium Carb/Vitamin D3/Vit K1 [Calcium + D Soft Chewable Tab] 1 each PO BID 02/22 Calcium Polycarbophil [Fiber Tabs] 500 mg PO TID 06/15/17 Ditropan Xl 5 mg PO d 06/15/17 Gabapentin 300 mg PO TID 06/15/17 Multivitamin [Multi-Day Vitamins] 1 each PO d 06/15/17 Omeprazole Magnesium [Prilosec Otc] 20 mg PO d 06/15/17 Disposition Discussed With: Patient, Family
[2017-06-23] MEDS ORDERED: ASPIRIN CHEWABLE PO STA (13:40)
--- NOTE | 2017-06-23 13:54 | CT ---
Exam: CT brain without contrast Clinical indication: Aphasia, rule out stroke. Comparison: 01/05/2017. TECHNIQUE: Axial unenhanced CT images from the skull base through the brain were obtained. Coronal and sagital reformats were performed. Findings: There is no evidence of intra or extra-axial hemorrhage. There is moderate chronic small vessel ischemic changes. There is a small hypodensity within the lef t basal ganglia which could represent a small old lacunar infarct. There is a small incidental right- sided parafalcine lipoma.There is no evidence of mass, acute infarct or midline shift. The ventricles and basilar cisterns are within normal limits. The visualized paranasal sinuses and mastoid air cells are clear. The visualized bony structures are unremarkable. Impression: 1. No interval change, with no definite acute intracranial abnormality. 2. Moderate chronic small vessel ischemic changes. 3. Possible small old left basal ganglia lacunar infarct.
[2017-06-23] MEDS ORDERED: TYLENOL PO PRN ×2 (14:48→17:52)
[2017-06-23] MEDS ORDERED: DITROPAN 5 MG PO SCH (15:00)
[2017-06-23] MEDS ORDERED: NON-FORMULARY MEDICATION (Omeprazole Magnesium [Prilosec Otc] 20 MG) PO SCH (15:00)
--- NOTE | 2017-06-23 15:04 | DI ---
Exam: Single x-ray of the chest. Comparison: 12/10/2016. Reason for exam: Coughing. FINDINGS: No pneumothorax, pleural effusion, or focal consolidation. 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 Partially imaged operative changes are seen in the lumb ar spine. Impression: No acute cardiopulmonary process.
[2017-06-23 16:01] VITALS: BMI 22.8
[2017-06-23] MEDS: CALCIUM POLYCARBOPHIL 500 MG PO SCH ×2 (16:38→20:40)
[2017-06-23] MEDS: NEURONTIN PO SCH ×2 (17:11→20:40)
[2017-06-23] MEDS: SODIUM CHLORIDE 1,000 ML IV SCH (17:11)
[2017-06-23] MEDS: ULTRAM PO SCH (20:40)
[2017-06-23] MEDS ORDERED: NON-FORMULARY MEDICATION (Calcium Carb/Vitamin D3/Vit K1 [Calcium + D Soft Chewable Tab] 1 PO SCH (21:00)
[2017-06-24] MEDS: SODIUM CHLORIDE 1,000 ML IV SCH ×2 (05:46→18:25)
[2017-06-24] MEDS ORDERED: DITROPAN XL PO SCH (09:00)
[2017-06-24] MEDS ORDERED: CALCIUM POLYCARBOPHIL 500 MG PO SCH (09:00)
[2017-06-24] MEDS: METAMUCIL PO SCH ×3 (09:46→21:17)
[2017-06-24] MEDS: NEURONTIN PO SCH ×3 (09:47→20:30)
[2017-06-24] MEDS: LEXAPRO PO SCH (09:47)
[2017-06-24] MEDS: CALCIUM 500 + VIT D 200 MG TABLET PO SCH ×2 (09:48→20:30)
[2017-06-24] MEDS: PRILOSEC PO SCH (09:48)
[2017-06-24] MEDS: ULTRAM PO SCH ×2 (09:48→20:30)
[2017-06-24] MEDS: MULTIVITAMIN TABLET PO SCH (09:49)
[2017-06-24] MEDS ORDERED: DECADRON 4 MG/ML SDV IVP STA (17:17)
[2017-06-24] MEDS: K-DUR PO SCH (17:17)
[2017-06-24] MEDS ORDERED: ROCEPHIN ONE (18:12)
[2017-06-24] MEDS: ROCEPHIN 1 GM in SODIUM CHLORIDE 50 ML IV SCH (18:21)
[2017-06-24] MEDS: MUCINEX PO SCH (20:30)
[2017-06-24] MEDS: DUONEB NEB SCH (23:45)
[2017-06-25] MEDS: DUONEB NEB SCH ×3 (05:30→23:14)
[2017-06-25] MEDS: PRILOSEC PO SCH (05:42)
[2017-06-25] MEDS: SODIUM CHLORIDE 1,000 ML IV SCH (08:12)
[2017-06-25] MEDS: MULTIVITAMIN TABLET PO SCH (08:55)
[2017-06-25] MEDS: CALCIUM 500 + VIT D 200 MG TABLET PO SCH ×2 (08:55→20:28)
[2017-06-25] MEDS: ROCEPHIN 1 GM in SODIUM CHLORIDE 50 ML IV SCH (08:55)
[2017-06-25] MEDS: LEXAPRO PO SCH (08:56)
[2017-06-25] MEDS: ULTRAM PO SCH ×2 (08:56→20:29)
[2017-06-25] MEDS: METAMUCIL PO SCH ×3 (08:58→20:30)
[2017-06-25] MEDS: K-DUR PO SCH (09:01)
[2017-06-25] MEDS: MUCINEX PO SCH ×2 (09:07→20:29)
[2017-06-25] MEDS: NEURONTIN PO SCH ×3 (09:07→20:31)
--- NOTE | 2017-06-25 11:28 | US ---
EXAM: Ultrasound bilateral carotid duplex. HISTORY: Transient ischemic attack. COMPARISON: None available. TECHNIQUE: Multiple hanson scale and color Doppler images were obtained. FINDINGS: Please note that estimates of internal carotid artery stenoses are based upon NASCET crite eh. Right carotid: Calcified plaquing noted without 50% or greater stenosis. Peak systolic velocity tray surement in the right internal carotid artery is 0.8 meters per second. Right internal to common car otid artery peak systolic velocity ratio measures 1.2. End diastolic velocity measurement in the rig ht internal carotid artery is 0.2 meters per second. Flow in the right vertebral artery is antegrade . Left carotid: Calcified plaquing noted without 50% or greater stenosis. Peak systolic velocity radhika urement in the left internal carotid artery is 0.9 meters per second. Left internal to common caroti d artery peak systolic velocity ratio measures 1.1. End diastolic velocity measurement in the left i nternal carotid artery measures 0.2 meters per second. Flow in the left vertebral artery is antegrad e. IMPRESSION: 1. Mild, less than 50%, stenosis in the right and left internal carotid arteries. 2. Antegrade flow in both vertebral arteries.
--- NOTE | 2017-06-25 15:28 | PN ---
DATE OF SERVICE: 06/24/17 SUBJECTIVE: The patient was admitted from the emergency room for the change in mental status with questionable TIA symptoms. CT scan showed the old stroke. As of today the patient is awake and alert feeling better. Having some problem with the weakness and walking. The patient had fever of 99 yesterday for which the patient been started on Rocephin 1 gram daily. REVIEW OF SYSTEMS: CONSTITUTIONAL: Fever , no chills. HEENT: Normal. ENDOCRINE: No weight gain, no weight loss. CVS: No angina symptoms. No CHF symptoms. No palpitations. No atypical chest pain for CAD. No shortness of breath. No PND, no orthopnea. RESPIRATORY: Cough and congested getting yellow/green phlegm, no hemoptysis. GI: No nausea, no vomiting. No abdominal pain. : No hematuria. No polyuria. MUSCULOSKELETAL:. No joint swelling. PSYCHIATRIC: Not anxious. No depression. No suicidal thoughts. No homicidal thoughts. SKIN: Intact. No rash. PHYSICAL EXAMINATION: V/S: Blood pressure 156/74, respiratory rate 18, heart rate 69, temperature 98.7 with saturation 97. HEENT: Normocephalic, atraumatic. Mucosa dry. Pallor positive. No icterus. NECK: Supple. No JVD, no carotid bruit. No lymphadenopathy. LUNGS: Bilateral entry is decreased and clear to auscultation. No rales or rhonchi. HEART: S1, S2 normal. No S3. No murmur, gallop or regurgitation. ABDOMEN: Soft, nontender. Bowel sounds active. No rigidity. No rebound or guarding. No CVA tenderness. EXTREMITIES: No clubbing, cyanosis or pedal edema. MUSCULOSKELETAL: No joint swelling. NEUROLOGIC: Awake, alert, oriented times three. No focal deficit. LYMPHATIC: No lymph nodes palpable. SKIN: Intact. LABS: WBC 7.39, hgb 11.9, hct 36.2, plt count 237, sodium 142, potassium 3.2, chloride 106, bicarb 28, BUN 10, creatinine 0.84. ASSESSMENT: 1. Status post change in mental status 2. TIA 3. Hypokalemia 4. Anemia 5. Hypertension 6. Dyslipidemia 7. Depression 8. History of marijuana use PLAN: 1. Will start the patient on DUO NEBS 2. Will Rocephin 1 gram daily 3. 1cc Decadron 4. Carotid ultrasound 5. Potassium Will follow the patient in daily rounds. TIME SPENT: More than 35 minutes MTDD
--- NOTE | 2017-06-25 16:13 | RS.PTINEVL ---
Subjective - Patient information Date of Evaluation: 06/25/17 Date of Arrival on Unit: 06/23/17 Admitted From:: Home Diagnosis: TIA, metabolic abnormalities Usual Living Arrangement: Son Living Arrangement Comments: Lives with Son Home Environment: House, Stairs (many), Rail Medical History: Arthritis Medical History Comments:: anxiety, depression, back pain, L rotator cuff tear, R shld injury Surgical History: Cholecystectomy, Hysterectomy Subjective Information/ Patient Comments:: pt states she is ready to get out of bed. pt states she wants to get stronger. - Level of function Prior to this admission, the patient could do the following:: Independent Selfcare, Independent ADL's, Independent Ambulation Current Level of Function: Partially Dependent Current Equipment Used at Home: pt has rwx at home, but wasn't using prior to admission. Pain Assessement - Location B shlds Description: Aching Intensity: 4 Pain Behavior: Guarding, Facial Grimacing Pain Aggravating Factors: Changing Position, Exercise/Activity Pain Alleviating Factors: Medication Interventions - Objective Patient Orientation: Person, Place, Time, Situation Current Interventions: IV's, Telemetry Range of Motion - ROM Right Upper Extremity AROM: Slight limitation (R shld flex limited due to previous injury) Left Upper Extremity AROM: Slight limitation (shld flex limited due to previous injury) Right Lower Extremity AROM: WFL's Left Lower Extremity AROM: WFL's Muscle Strength - Muscle Strength Right Upper Extremity Strength: Mild Weakness (shld flex 3-/5, elbow flex/ext 3+ /5, decreased senior it security analyst strength) Left Upper Extremity Strength: Mild Weakness (shld flex 3-/5, elbow flex/ext 4-/ 5, decreased senior it security analyst strength) Right Lower Extremity Strength: Mild Weakness (hip flex 3+/5, knee flex/ext 4-/5 , ankle Df/PF 4-/5) Left Lower Extremity Strength: Mild Weakness (hip flex 3+/5, knee flex/ext 4-/5 , ankle Df/PF 4-/5) Sensation - Sensation Right Upper Extremity Sensation: Impaired Left Upper Extremity Sensation: Impaired Right Lower Extremity Sensation: Intact/Normal Left Lower Extremity Sensation: Intact/Normal Comments: pt reports occasional numbness and tingling B hands, Palpation Palpation Findings: None/Normal Balance - Sitting Balance and Reactions Static Sitting Balance: Good Dynamic Sitting Balance: Fair Sitting Equilibrium Reactions: Delayed Left, Delayed Right Sitting Protective Reactions: Delayed Left, Delayed Right - Standing Balance and Reactions Static Standing Balance: Fair Dynamic Standing Balance: Poor Standing Equilibrium Reactions: Delayed Left, Delayed Right Standing Protective Reactions: Delayed Left, Delayed Right - Comments Balance Assessment Comments: Tinetti score: 06/05 Functional Mobility - Bed Mobility Rolling R/L: Independent Scooting: Independent Supine to Sit: Supervision - Transfers Sit to Stand: CGA Stand to Sit: CGA - Safety Awareness Safety Awareness: Fair Ambulation - Ambulation Assistive Device Used: Rolling Walker Orthotic/Prosthetic Device: No Distance: 80ft Assistance needed with Ambulation: CGA, Min Assist, 1 person assist Quality of Ambulation: pt requires CGA to min x 1 + 1 for IV pole Gait Deviations: Ataxic gait, Forward posture, Short stride, Deviates from path Ambulation Comments: pt with ataxic gait, decreased step length, decreased heel strike, occasional scissoring Factors Affecting Ambulation: Decreased Balance, Weakness, Decreased Coordination, Decreased Safety, Limited Endurance Treatment time - Time with patient Total treatment time: 35 Patient Education - Education Patient Education: Activity Modification, Education of Plan of Care Teaching Recipient: Patient Teaching Methods: Discussion (Discussion regarding POC as well as not attempting to stand without assist of staff, pt verbalized understanding ) Assessment - Assessment Problem List:: Decreased level of function, Requires training/education, Decreased safety/Risk of falls, Weakness Rehab Potential: Good Further Therapy Indicated?: Yes Short Term Goals GOAL #1: pt transfer sup to/from sit independently, sit to/from stand SBA Goal to be met by: 06/27/17 GOAL #2: pt amb 150ft with rwx with no LOB and improved sequencing with CGA Goal to be met by: 06/27/17 Buckle And Button Maker Goals GOAL #1: pt amb functional household distances with rwx with supervision with no LOB Goal to be met by: 06/30/17 GOAL #2: pt with improved strength BLE 4- to 4/5 and independent with HEP Goal to be met by: 06/30/17 GOAL #3: pt demonstrate improved dyn stand balance noted by tinetti score of Goal to be met by: 06/30/17 Plan Plan of Care: Therapeutic EX, Neuromuscular Re-Educ, Therapeutic Activity, Self- Care/Home Management Other:: gait training Frequency of Treatment: 1-2 X day, as tolerated Duration of Treatment: 5 days Anticipated Discharge Destination: Home Has the Physician been added for Co-signature?: Yes
[2017-06-25] MEDS ORDERED: SODIUM CHLORIDE 1,000 ML IV SCH (20:57)
[2017-06-25] MEDS ORDERED: DITROPAN XL PO SCH (21:00)
[2017-06-25] MEDS: ZESTRIL PO SCH (21:09)
[2017-06-26] MEDS: SODIUM CHLORIDE 1,000 ML IV SCH (00:44)
[2017-06-26] MEDS: DUONEB NEB SCH (05:16)
[2017-06-26] MEDS: PRILOSEC PO SCH (05:50)
[2017-06-26] MEDS: ROCEPHIN 1 GM in SODIUM CHLORIDE 50 ML IV SCH (09:00)
[2017-06-26] MEDS: ULTRAM PO SCH (09:05)
[2017-06-26] MEDS: MUCINEX PO SCH (09:06)
[2017-06-26] MEDS: NEURONTIN PO SCH (09:06)
[2017-06-26] MEDS: K-DUR PO SCH (09:06)
[2017-06-26] MEDS: CALCIUM 500 + VIT D 200 MG TABLET PO SCH (09:06)
[2017-06-26] MEDS: METAMUCIL PO SCH (09:07)
[2017-06-26] MEDS: LEXAPRO PO SCH (09:07)
[2017-06-26] MEDS: MULTIVITAMIN TABLET PO SCH (09:08)
[2017-06-26] MEDS: ZESTRIL PO SCH (09:08)
[2017-06-26 10:12] VITALS: BP 151/78; TEMP 98
--- NOTE | 2017-06-26 13:01 | ECHO2D ---
Date of Exam: 06/25/17 Ordering Physician: DAVID MOSES Room #: 102 Reason for Echo: SLURRED SPEECH, TIA M-Mode Normal Adult Results LV Dimensions Normal Adult Results AoV Opening excursions >1.6 >1.6 LVEDD-base- 3.5-5.8 4.3 Ao root dimensions 2.0-3.7 3.0 LVESD-base- 3.1-4.6 L. Atrium dimensions 1.9-3.8 3.3 Post. Wall thickness 0.8-1.1 1.0 IV septum (thickness) 0.7-1.2 1.0 Post. Wall excursion 0.72-1.3 NORMAL Septal motion NORMAL Systolic motion R. Ventricular cavity 1.5-2.0 3.0 LVEF 60% 59% Paradoxical septal wall motion NORMAL 2-D : 2-D M Mode Echocardiogram was performed using apical four chamber and left parasternal long and short axis views. Mitral, tricuspid and aortic valves appear to be normal. Contractility of the left ventricle seems to be normal, so is the cavity size. Left atrial cavity size and aortic root appear to be normal. There is no pericardial effusion. There is no thrombus noted in the left ventricular or left aortic cavity. No mitral valve prolapse noted. M-MODE: MV: NORMAL AV: NORMAL TV: NORMAL PV: CHAMBER SIZE: RIGHT CAVITY ENLARGED WALL MOTION: NORMAL PERICARDIUM: NORMAL INTERPRETATION: 1. MILD RIGHT VENTRICLE CAVITY ENLARGED 2. NORMAL LEFT VENTRICULAR CONTRACTILITY 3. NORMAL VALVES MTDD
--- NOTE | 2017-07-05 13:02 | PN ---
DATE OF SERVICE: 06/25/17 SUBJECTIVE: The patient was admitted with TIA, Stroke and weakness. The patient is still weak. Having trouble ambulating some. REVIEW OF SYSTEMS: CONSTITUTIONAL: No fever, no chills. HEENT: Normal. ENDOCRINE: No weight gain, no weight loss. CVS: No angina symptoms. No CHF symptoms. No palpitations. No atypical chest pain for CAD. No shortness of breath. No PND, no orthopnea. RESPIRATORY: No cough, no hemoptysis. GI: No nausea, no vomiting. No abdominal pain. : No hematuria. No polyuria. MUSCULOSKELETAL:. No joint swelling. PSYCHIATRIC: Not anxious. No depression. No suicidal thoughts. No homicidal thoughts. SKIN: Intact. No rash. PHYSICAL EXAMINATION: V/S: Blood pressure 163/62, respiratory rate 20, heart rate 89 and temperature 99. HEENT: Normocephalic, atraumatic. Mucosa dry. Pallor positive. No icterus. NECK: Supple. No JVD, no carotid bruit. No lymphadenopathy. LUNGS: Clear to auscultation. No rales or rhonchi. HEART: S1, S2 normal. No S3. No murmur, gallop or regurgitation. ABDOMEN: Soft, nontender. Bowel sounds active. No rigidity. No rebound or guarding. No CVA tenderness. EXTREMITIES: No clubbing, cyanosis or pedal edema. Right sided weakness has improved. MUSCULOSKELETAL: No joint swelling. NEUROLOGIC: Awake, alert, oriented times three. No focal deficit. LYMPHATIC: No lymph nodes palpable. SKIN: Intact. LABS: WBC 7.25, hgb 12.0, hct 35.7, plt count 261, sodium 142, potassium 3.6, chloride 106, bicarb 25, BUN 7, creatinine 0.80. ASSESSMENT: 1. Weakness 2. TIA symptoms which are improved. 3. Anemia 4. Hypertension 5. COPD 6. GERD 7. Overactive bladder 8. DJD spine 9. Depression PLAN: 1. Will start the patient on Lisinopril 20mg PO daily 2. Stop the IV fluids 3. Carotid ultrasound 4. Lipid profile 5. Echocardiogram Will follow the patient in daily rounds. TIME SPENT: More than 35 minutes MTDD
--- NOTE | 2017-08-03 15:20 | PN ---
I saw and examined Daisy Horta in the ER and I did the admission to myself. Please use the History and Physical from the ER for this admission. KIANA
== END 2017-06-26 12:10 | disposition swing bed (61) | DRG 65 ==
LOC: ED 13:21 → MEDSURG A 14:46
PROVIDERS: ADMIT Emergency Medicine; ATTEND Emergency Medicine
DX: I63.9 Cerebral infarction, unspecified (principal); G45.9 Transient cerebral ischemic attack, unspecified; G81.94 Hemiplegia, unspecified affecting left nondominant side; N17.9 Acute kidney failure, unspecified; R41.82 Altered mental status, unspecified; R53.1 Weakness; R50.9 Fever, unspecified; E87.6 Hypokalemia; D64.9 Anemia, unspecified; I10 Essential (primary) hypertension; E78.5 Hyperlipidemia, unspecified; F32.9 Major depressive disorder, single episode, unspecified; F12.11 Cannabis abuse, in remission; J44.9 Chronic obstructive pulmonary disease, unspecified; K21.9 Gastro-esophageal reflux disease without esophagitis; N32.81 Overactive bladder; M47.9 Spondylosis, unspecified; R26.0 Ataxic gait; E87.5 Hyperkalemia; M25.562 Pain in left knee; M25.512 Pain in left shoulder; J06.9 Acute upper respiratory infection, unspecified; G62.9 Polyneuropathy, unspecified; G56.01 Carpal tunnel syndrome, right upper limb; F19.10 Other psychoactive substance abuse, uncomplicated; F41.8 Other specified anxiety disorders; G89.4 Chronic pain syndrome; M19.90 Unspecified osteoarthritis, unspecified site; Z72.0 Tobacco use; Z86.73 Personal history of transient ischemic attack (TIA), and cerebral infarction without residual deficits; Z87.828 Personal history of other (healed) physical injury and trauma; Z85.41 Personal history of malignant neoplasm of cervix uteri
CPT/HCPCS: 36415; 80053; 80061; 80307; 81001; 82550; 84443; 84484; 85025; 93005; 93010; 94640; 99284

== ENCOUNTER 2017-06-26 12:26 | Inpatient (IN) ==
[2017-06-26] MEDS ORDERED: DUONEB NEB SCH (14:00)
[2017-06-26] MEDS: DUONEB NEB SCH ×2 (14:05→23:10)
[2017-06-26] MEDS ORDERED: CALCIUM POLYCARBOPHIL 500 MG PO SCH (15:00)
[2017-06-26] MEDS: NEURONTIN PO SCH ×2 (15:21→20:31)
[2017-06-26] MEDS: METAMUCIL PO SCH ×2 (15:21→20:34)
[2017-06-26 19:37] VITALS: BMI 23.0
[2017-06-26] MEDS: KEFLEX PO SCH (20:31)
[2017-06-26] MEDS: CALCIUM 500 + VIT D 200 MG TABLET PO SCH (20:32)
[2017-06-26] MEDS: DITROPAN XL PO SCH (20:32)
[2017-06-26] MEDS: ULTRAM PO SCH (20:32)
[2017-06-26] MEDS ORDERED: NON-FORMULARY MEDICATION (Calcium Carb/Vitamin D3/Vit K1 [Calcium + D Soft Chewable Tab] 1 PO SCH (21:00)
[2017-06-26] MEDS ORDERED: DITROPAN 5 MG PO SCH (21:00)
[2017-06-27] MEDS: DUONEB NEB SCH ×3 (05:38→22:25)
[2017-06-27] MEDS: PRILOSEC PO SCH (05:45)
[2017-06-27] MEDS: MULTIVITAMIN TABLET PO SCH (08:38)
[2017-06-27] MEDS: METAMUCIL PO SCH ×4 (08:38→20:12)
[2017-06-27] MEDS: ZESTRIL PO SCH (08:38)
[2017-06-27] MEDS: K-DUR PO SCH (08:39)
[2017-06-27] MEDS: KEFLEX PO SCH ×2 (08:39→20:08)
[2017-06-27] MEDS: LEXAPRO PO SCH (08:39)
[2017-06-27] MEDS: CALCIUM 500 + VIT D 200 MG TABLET PO SCH ×2 (08:39→20:08)
[2017-06-27] MEDS: NEURONTIN PO SCH ×3 (08:39→20:09)
[2017-06-27] MEDS: ULTRAM PO SCH ×2 (08:59→20:08)
[2017-06-27] MEDS ORDERED: NON-FORMULARY MEDICATION (Omeprazole Magnesium [Prilosec Otc] 20 MG) PO SCH (09:00)
--- NOTE | 2017-06-27 09:05 | RS.PTINEVL ---
Subjective - Patient information Date of Evaluation: 06/26/17 Date of Arrival on Unit: 06/26/17 Admitted From:: In-House Transfer Diagnosis: TIA, metabolic abnormalities Usual Living Arrangement: With Others Living Arrangement Comments: Lives with Son Home Environment: House, Stairs (many), Rail Medical History: Arthritis Medical History Comments:: anxiety, depression, back pain, L rotator cuff tear, R shld injury LATEX ALLERGY?: No Surgical History: Cholecystectomy, Hysterectomy Subjective Information/ Patient Comments:: pt - Level of function Prior to this admission, the patient could do the following:: Independent Selfcare, Independent ADL's, Independent Ambulation Current Level of Function: Partially Dependent Current Equipment Used at Home: cane, wx Pain Assessement - Location Back Description: Aching Intensity: 3 Pain Behavior: Rubbing Site Neck Description: Aching Intensity: 3 Pain Behavior: Rubbing Site Interventions - Objective Patient Orientation: Person Current Interventions: Oxygen, Telemetry (pt with expressive aphasia, and word finding issues. ) Range of Motion - ROM Right Upper Extremity AROM: Slight limitation (shld flex limited due to previous injury) Left Upper Extremity AROM: Slight limitation (shld flex limited due to previous injury) Right Lower Extremity AROM: WFL's Left Lower Extremity AROM: WFL's Muscle Strength - Muscle Strength Right Upper Extremity Strength: Mild Weakness (shld flex 3-/5, elbow flex/ext 4- /5) Left Upper Extremity Strength: Mild Weakness (shld flex 3-/5, elbow flex/ext 4-/ 5) Right Lower Extremity Strength: Mild Weakness (hip flex 3+/5, knee flex/ext 4-/5 , ankle Df/PF 4-/5) Left Lower Extremity Strength: Mild Weakness (hip flex 3+/5, knee flex/ext 4-/5 , ankle Df/PF 4-/5) Sensation - Sensation Right Upper Extremity Sensation: Impaired (n/t B hands) Left Upper Extremity Sensation: Impaired Right Lower Extremity Sensation: Intact/Normal Left Lower Extremity Sensation: Intact/Normal Palpation Palpation Findings: None/Normal Balance - Sitting Balance and Reactions Static Sitting Balance: Good Dynamic Sitting Balance: Fair Sitting Equilibrium Reactions: Delayed Left, Delayed Right Sitting Protective Reactions: Delayed Left, Delayed Right - Standing Balance and Reactions Static Standing Balance: Fair Dynamic Standing Balance: Poor Standing Equilibrium Reactions: Delayed Left, Delayed Right Standing Protective Reactions: Delayed Left, Delayed Right - Comments Balance Assessment Comments: Tinetti: 04/05 which is decreased from acute care stay 06/05 Functional Mobility - Bed Mobility Rolling R/L: CGA Scooting: CGA, Min Assist Supine to Sit: CGA Sit to Supine: Min Assist - Transfers Sit to Stand: CGA Stand to Sit: CGA - Safety Awareness Safety Awareness: Fair Ambulation - Ambulation Assistive Device Used: Rolling Walker Orthotic/Prosthetic Device: No Distance: 100ft Assistance needed with Ambulation: CGA, Min Assist Gait Deviations: Ataxic gait, Forward posture, Deviates from path, Lacks step continuity Ambulation Comments: pt amb with ataxic gait with occasional scissoring and deviation from path. pt appears to have difficulty with foot placement. Factors Affecting Ambulation: Decreased Balance, Weakness, Decreased Coordination, Decreased Safety, Cognitive Status, Limited Endurance Treatment time - Time with patient Total treatment time: 31 Patient Education - Education Patient Education: Education of Plan of Care Teaching Recipient: Patient Teaching Methods: Discussion (Discussed POC with patient. ) Assessment - Assessment Problem List:: Decreased level of function, Requires training/education, Decreased safety/Risk of falls, Weakness, Cognitive status limits abilities Rehab Potential: Good Further Therapy Indicated?: Yes Comments: Discussed with nursing pt with expressive aphasia/ word finding issues this visit which was not present during previous PT visits. Short Term Goals GOAL #1: pt transfer sup to/from sit independently, sit to/from stand SBA Goal to be met by: 07/02/17 GOAL #2: pt amb 150ft with rwx with no LOB and improved sequencing with CGA Goal to be met by: 07/02/17 Progress towards Goal:: Progressing GOAL #3: pt demonstrate independence with bed mobility Goal to be met by: 07/02/17 Detention Goals GOAL #1: pt amb functional household distances with rwx with supervision with no LOB Goal to be met by: 07/11/17 GOAL #2: pt with improved strength BLE 4- to 4/5 and independent with HEP Goal to be met by: 07/11/17 GOAL #3: pt demonstrate improved dyn stand balance noted by tinetti score of Goal to be met by: 07/11/17 Plan Plan of Care: Therapeutic EX, Therapeutic Activity Other:: gait training Frequency of Treatment: 1-2 X day, as tolerated Duration of Treatment: 2 Weeks Anticipated Discharge Destination: Home Has the Physician been added for Co-signature?: Yes
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
[2017-06-27] MEDS: DITROPAN XL PO SCH (20:08)
[2017-06-28] MEDS: DUONEB NEB SCH ×3 (05:00→21:58)
[2017-06-28] MEDS: PRILOSEC PO SCH (05:35)
[2017-06-28] MEDS: CALCIUM 500 + VIT D 200 MG TABLET PO SCH ×2 (08:37→20:44)
[2017-06-28] MEDS: K-DUR PO SCH (08:37)
[2017-06-28] MEDS: ZESTRIL PO SCH (08:38)
[2017-06-28] MEDS: KEFLEX PO SCH ×2 (08:38→20:43)
[2017-06-28] MEDS: MULTIVITAMIN TABLET PO SCH (08:38)
[2017-06-28] MEDS: ULTRAM PO SCH ×2 (08:38→20:44)
[2017-06-28] MEDS: NEURONTIN PO SCH ×3 (08:38→20:44)
[2017-06-28] MEDS: LEXAPRO PO SCH (08:38)
[2017-06-28] MEDS ORDERED: DECADRON 4 MG/ML SDV IM STA (09:02)
--- NOTE | 2017-06-28 09:19 | PN ---
DATE OF SERVICE: 06/25/17 SUBJECTIVE: The patient was admitted with TIA, stroke and weakness. The patient is still weak and having some trouble ambulating. Otherwise, no fever, chills. REVIEW OF SYSTEMS: CONSTITUTIONAL: No fever, no chills. HEENT: Normal. ENDOCRINE: No weight gain, no weight loss. CVS: No angina symptoms. No CHF symptoms. No palpitations. No atypical chest pain for CAD. No shortness of breath. No PND, no orthopnea. RESPIRATORY: No cough, no hemoptysis. GI: No nausea, no vomiting. No abdominal pain. : No hematuria. No polyuria. MUSCULOSKELETAL:. No joint swelling. PSYCHIATRIC: Not anxious. No depression. No suicidal thoughts. No homicidal thoughts. SKIN: Intact. No rash. PHYSICAL EXAMINATION: V/S: Blood pressure 162/72, respiratory rate 20, heart rate 89, temperature 99. HEENT: Normocephalic, atraumatic. Mucosa dry. Pallor positive. No icterus. NECK: Supple. No JVD, no carotid bruit. No lymphadenopathy. LUNGS: Clear to auscultation. No rales or rhonchi. HEART: S1, S2 normal. No S3. No murmur, gallop or regurgitation. ABDOMEN: Soft, nontender. Bowel sounds active. No rigidity. No rebound or guarding. No CVA tenderness. EXTREMITIES: Right sided weakness has improved. No clubbing, cyanosis or pedal edema. MUSCULOSKELETAL: No joint swelling. NEUROLOGIC: Awake, alert, oriented times three. No focal deficit. LYMPHATIC: No lymph nodes palpable. SKIN: Intact. LABS: White count 7.25, hemoglobin 12.0, hematocrit 35.7, platelet count 261, sodium 142, potassium 3.6, chloride 106, bicarb 25, BUN 7, creatinine 0.80. ASSESSMENT: 1. WEAKNESS 2. TIA SYMPTOMS, WHICH ARE IMPROVED 3. ANEMIA 4. HYPERTENSION 5. COPD 6. GERD 7. OVERACTIVE BLADDER 8. DJD OF THE SPINE 9. DEPRESSION PLAN: 1. Will start the patient on Lisinopril 20 mg p.o. daily. 2. Stop the IV fluids. 3. Carotid ultrasound. 4. Lipid profile. 5. Echocardiogram. 6. Will follow up with the patient in daily rounds. TIME SPENT: More than 35 minutes today. [facility]
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
--- NOTE | 2017-06-28 09:49 | PN ---
DATE OF SERVICE: 06/27/17 SUBJECTIVE: The patient was admitted with confusion, a change in mental status and weakness, questionable TIA. The patient did have one more episode where the patient was in the hospital. The patient has been placed in the TCU care because of the weakness and needing some help. REVIEW OF SYSTEMS: CONSTITUTIONAL: No fever, no chills. HEENT: Normal. ENDOCRINE: No weight gain, no weight loss. CVS: No angina symptoms. No CHF symptoms. No palpitations. No atypical chest pain for CAD. No shortness of breath. No PND, no orthopnea. RESPIRATORY: No cough, no hemoptysis. GI: No nausea, no vomiting. No abdominal pain. : No hematuria. No polyuria. MUSCULOSKELETAL:. No joint swelling. PSYCHIATRIC: Not anxious. No depression. No suicidal thoughts. No homicidal thoughts. SKIN: Intact. No rash. PHYSICAL EXAMINATION: V/S: Blood pressure 121/74, respiratory rate 16, heart rate 67, temperature 98.1 , saturation 92 on room air. HEENT: Normocephalic, atraumatic. Mucosa dry. Pallor positive. No icterus. NECK: Supple. No JVD, no carotid bruit. No lymphadenopathy. LUNGS: Bilateral air entry is decreased and clear. No rales or rhonchi. HEART: S1, S2 normal. No S3. No murmur, gallop or regurgitation. ABDOMEN: Soft, nontender. Bowel sounds active. No rigidity. No rebound or guarding. No CVA tenderness. EXTREMITIES: No clubbing, cyanosis or pedal edema. MUSCULOSKELETAL: No joint swelling. NEUROLOGIC: Awake, alert, oriented times three. Slight weakness on the right side. No focal deficit. LYMPHATIC: No lymph nodes palpable. SKIN: Intact. LABS: Sodium 141, potassium 3.9, chloride 103, bicarb 29, BUN 13, creatinine 0.92, glucose 111, white count 8.63, hemoglobin 11.6, hematocrit 35.4, platelet count 242. ASSESSMENT: 1. TIA 2. WEAKNESS 3. ATAXIA 4. HISTORY OF COPD 5. HYPERTENSION 6. DYSLIPIDEMIA 7. DJD OF THE SPINE PLAN: 1. Continue the physical therapy and occupational therapy. 2. Lisinopril. 3. DuoNebs. 4. Prilosec. 5. Will follow up with the patient in daily rounds. TIME SPENT: More than 35 minutes today. MTDD
[2017-06-28] MEDS: METAMUCIL PO SCH ×3 (11:09→20:45)
--- NOTE | 2017-06-28 13:16 | DI ---
EXAM: Radiographs, left hip HISTORY: Initial presentation for left hip pain following a fall. COMPARISON: 03/18/2015. TECHNIQUE: Two views. FINDINGS: Bone mineralization is decreased. There is no fracture or dislocation. The joint spaces are maintained. Mild spurring off the greater trochanter again noted. No focal soft tissue abnormal ity is seen. Since the prior study, there has been no significant interval change. IMPRESSION: No fracture or dislocation.
[2017-06-28] MEDS: DITROPAN XL PO SCH (20:44)
[2017-06-29] MEDS: DUONEB NEB SCH ×3 (05:06→22:10)
[2017-06-29] MEDS: PRILOSEC PO SCH (06:50)
[2017-06-29] MEDS: ULTRAM PO SCH ×2 (08:35→20:02)
[2017-06-29] MEDS: NEURONTIN PO SCH ×3 (08:36→20:02)
[2017-06-29] MEDS: ZESTRIL PO SCH (08:36)
[2017-06-29] MEDS: CALCIUM 500 + VIT D 200 MG TABLET PO SCH ×2 (08:36→20:02)
[2017-06-29] MEDS: METAMUCIL PO SCH ×3 (08:36→20:03)
[2017-06-29] MEDS: KEFLEX PO SCH ×2 (08:36→20:02)
[2017-06-29] MEDS: MULTIVITAMIN TABLET PO SCH (08:36)
[2017-06-29] MEDS: K-DUR PO SCH (08:36)
[2017-06-29] MEDS: LEXAPRO PO SCH (08:36)
[2017-06-29] MEDS: DITROPAN XL PO SCH (20:02)
[2017-06-30] MEDS: DUONEB NEB SCH ×3 (05:12→22:45)
[2017-06-30] MEDS: PRILOSEC PO SCH (05:51)
[2017-06-30] MEDS: MULTIVITAMIN TABLET PO SCH (08:47)
[2017-06-30] MEDS: CALCIUM 500 + VIT D 200 MG TABLET PO SCH ×2 (08:47→20:57)
[2017-06-30] MEDS: KEFLEX PO SCH ×2 (08:47→20:57)
[2017-06-30] MEDS: ZESTRIL PO SCH (08:47)
[2017-06-30] MEDS: K-DUR PO SCH (08:47)
[2017-06-30] MEDS: NEURONTIN PO SCH ×3 (08:47→20:58)
[2017-06-30] MEDS: ULTRAM PO SCH ×2 (08:48→20:57)
[2017-06-30] MEDS: LEXAPRO PO SCH (08:48)
[2017-06-30] MEDS: METAMUCIL PO SCH ×3 (08:48→20:58)
[2017-06-30] MEDS: DITROPAN XL PO SCH (20:58)
[2017-07-01] MEDS: DUONEB NEB SCH ×3 (04:47→23:58)
[2017-07-01] MEDS: PRILOSEC PO SCH (05:39)
[2017-07-01] MEDS: NEURONTIN PO SCH ×3 (08:30→20:44)
[2017-07-01] MEDS: LEXAPRO PO SCH (08:31)
[2017-07-01] MEDS: MULTIVITAMIN TABLET PO SCH (08:31)
[2017-07-01] MEDS: KEFLEX PO SCH (08:31)
[2017-07-01] MEDS: ZESTRIL PO SCH (08:31)
[2017-07-01] MEDS: ULTRAM PO SCH ×2 (08:31→20:44)
[2017-07-01] MEDS: K-DUR PO SCH (08:31)
[2017-07-01] MEDS: CALCIUM 500 + VIT D 200 MG TABLET PO SCH ×2 (08:31→20:44)
[2017-07-01] MEDS: METAMUCIL PO SCH ×3 (08:32→20:45)
[2017-07-01] MEDS: DITROPAN XL PO SCH (20:44)
[2017-07-02] MEDS: DUONEB NEB SCH ×3 (05:01→23:48)
[2017-07-02] MEDS: PRILOSEC PO SCH (05:33)
[2017-07-02] MEDS ORDERED: DECADRON 4 MG/ML SDV IM STA (07:59)
[2017-07-02] MEDS: ULTRAM PO SCH (08:37)
[2017-07-02] MEDS: K-DUR PO SCH (08:40)
[2017-07-02] MEDS: ZESTRIL PO SCH (08:40)
[2017-07-02] MEDS: MULTIVITAMIN TABLET PO SCH (08:40)
[2017-07-02] MEDS: LEXAPRO PO SCH (08:40)
[2017-07-02] MEDS: CALCIUM 500 + VIT D 200 MG TABLET PO SCH ×2 (08:40→20:07)
[2017-07-02] MEDS: NEURONTIN PO SCH ×2 (08:40→14:54)
[2017-07-02] MEDS: METAMUCIL PO SCH ×3 (08:44→20:08)
--- NOTE | 2017-07-02 14:43 | CT ---
EXAM: CT of the head without contrast History: Right-sided weakness, Comparison: Head CT 06/23/2017 Technique: Multiplanar CT images through the head were obtained without the administration of IV con trast Findings: The visualized paranasal sinuses and mastoid air cells are clear in general. No acute calv arial abnormalities. Intracranially there is stable mild atrophy. No midline shift and no hydrocephalus. No acute intrac ranial hemorrhage or abnormal extraaxial fluid collections. No significant interval change in the pe riventricular and subcortical white matter hypodensities. Impression: 1. No acute intracranial hemorrhage. 2. Atrophy and chronic small vessel ischemic disease.
[2017-07-02] MEDS ORDERED: PLAVIX PO STA (15:17)
[2017-07-02] MEDS: FLEXERIL PO SCH (20:08)
[2017-07-03] MEDS: PRILOSEC PO SCH (05:38)
[2017-07-03] MEDS: DUONEB NEB SCH (07:23)
[2017-07-03] MEDS: PLAVIX PO SCH (08:40)
[2017-07-03] MEDS: ZESTRIL PO SCH (08:40)
[2017-07-03] MEDS: CALCIUM 500 + VIT D 200 MG TABLET PO SCH ×2 (08:40→21:01)
[2017-07-03] MEDS: FLEXERIL PO SCH ×2 (08:41→21:02)
[2017-07-03] MEDS: MULTIVITAMIN TABLET PO SCH (08:42)
[2017-07-03] MEDS: LEXAPRO PO SCH (08:42)
[2017-07-03] MEDS: K-DUR PO SCH (08:42)
[2017-07-03] MEDS: METAMUCIL PO SCH ×3 (08:43→21:01)
[2017-07-03] MEDS: NORCO 5-325 PO SCH ×2 (09:48→21:01)
--- NOTE | 2017-07-03 10:17 | HOLTER ---
PATIENT INFORMATION AND COMMENTS Attending Physician: ZULLY MORRISON Indications: TINGLING OF FINGERS __ Patient Medications: DUONEB, KEFLEX, LEXAPRO, NEURONTIN, ZESTRIL, PRILOSEC, DITROPAN, ULTRAM __ Pre-procedure Summary: Protocol: Standard Heart Rate Started: 06/27/17 1651 Minimum: 57 BPM Weight: 130 LBS Ended: 06/28/17 1637 Maximum: 117 BPM Height: 63" Duration: 24 HOURS Average: 84 BPM _ INTERPRETATIONS/OBSERVATIONS: 1. BASIC RHYTHM: SINUS, RATE 60 BPM TO 120 BPM, AVERAGE 84 BPM 2. RARE PAC'S AND PVC'S 3. NO ST-T WAVE CHANGES FROM BASELINE 4. NO CORRELATION WITH ACTIVITY LOG MTDD
[2017-07-03] MEDS ORDERED: DUONEB NEB PRN (12:26)
[2017-07-04] MEDS: PRILOSEC PO SCH (05:43)
[2017-07-04] MEDS: K-DUR PO SCH (08:21)
[2017-07-04] MEDS: FLEXERIL PO SCH ×2 (08:21→20:42)
[2017-07-04] MEDS: METAMUCIL PO SCH ×3 (08:23→20:43)
[2017-07-04] MEDS: ZESTRIL PO SCH (08:23)
[2017-07-04] MEDS: MULTIVITAMIN TABLET PO SCH (08:23)
[2017-07-04] MEDS: CALCIUM 500 + VIT D 200 MG TABLET PO SCH ×2 (08:23→20:42)
[2017-07-04] MEDS: LEXAPRO PO SCH (08:23)
[2017-07-04] MEDS: NORCO 5-325 PO SCH ×2 (08:23→20:43)
[2017-07-04] MEDS: PLAVIX PO SCH (08:24)
--- NOTE | 2017-07-04 09:52 | PN ---
DATE OF SERVICE: 07/02/17 SUBJECTIVE: The nurse called me because the patient had acute weakness on the right side with dysphagia, right upper extremity and lower extremity was not able to be moved. I came and evaluated the patient. REVIEW OF SYSTEMS: CONSTITUTIONAL: No fever, no chills. HEENT: Normal. ENDOCRINE: No weight gain, no weight loss. CVS: No angina symptoms. No CHF symptoms. No palpitations. No atypical chest pain for CAD. No shortness of breath. No PND, no orthopnea. RESPIRATORY: No cough, no hemoptysis. GI: No nausea, no vomiting. No abdominal pain. : No hematuria. No polyuria. MUSCULOSKELETAL:. No joint swelling. PSYCHIATRIC: Not anxious. No depression. No suicidal thoughts. No homicidal thoughts. SKIN: Intact. No rash. PHYSICAL EXAMINATION: VITALS: Blood pressure 119/69, respiratory rate 18, heart rate 80, saturation 97 % and temperature 98.8. HEENT: Normocephalic, atraumatic. Mucosa . NECK: Supple. No JVD, no carotid bruit. No lymphadenopathy. LUNGS: Clear to auscultation. No rales or rhonchi. HEART: S1, S2 normal. No S3. No murmur, gallop or regurgitation. ABDOMEN: Soft, nontender. Bowel sounds active. No rigidity. No rebound or guarding. No CVA tenderness. EXTREMITIES: No clubbing, cyanosis or pedal edema. MUSCULOSKELETAL: No joint swelling. NEUROLOGIC: Awake, alert and can smile. 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 No focal deficit. LYMPHATIC: No lymph nodes palpable. SKIN: Intact. With findings of acute stroke I did call neurology transfer center at the [facility], Dr. Cabrera was litigation attorney associate. He was courteous enough to take a call and talk to me in length. In review of the patient's symptoms are going on in and out for almost one most ever since the first episode of the weakness started and the patient did have the two more episodes while she was in the hospital Dr. Cabrera that it is not advisable to give a TPA for patient as it can be an evolving stroke and which can make the patient bleed. At that time the plan was made to keep the patient at the [facility], give the loading dose of Plavix 300mg and continue with the Plavix 75mg PO daily. No Lovenox at this time. Same thing discussed with the patient's both son's and daughter-in- law and all verbalized understanding of the plan and the patient will be left at the [facility] with treatment for the acute stroke, right sided CVA which is CAT scan negative. TIME SPENT: More than 30 minutes MTDD
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
--- NOTE | 2017-07-04 14:55 | PN ---
DATE OF SERVICE: 07/01/17 SUBJECTIVE: The patient is in transitional care for the physical therapy and occupational therapy, been walking. Complaints about some numbness in the right hand. She has a history of carpel tunnel syndrome. When explained about the holding my hand and squeezing she did not have any motor deficit. The patient did go home for the [place] dinner. REVIEW OF SYSTEMS: CONSTITUTIONAL: No fever, no chills. HEENT: Normal. ENDOCRINE: No weight gain, no weight loss. CVS: No angina symptoms. No CHF symptoms. No palpitations. No atypical chest pain for CAD. No shortness of breath. No PND, no orthopnea. RESPIRATORY: No cough, no hemoptysis. GI: No nausea, no vomiting. No abdominal pain. : No hematuria. No polyuria. MUSCULOSKELETAL:. No joint swelling. PSYCHIATRIC: Not anxious. No depression. No suicidal thoughts. No homicidal thoughts. SKIN: Intact. No rash. PHYSICAL EXAMINATION: V/S: Blood pressure 123/70, respiratory rate 18, heart rate 97, temperature 97.8 with saturation 92. HEENT: Normocephalic, atraumatic. Mucosa dry. NECK: Supple. No JVD, no carotid bruit. No lymphadenopathy. LUNGS: Clear to auscultation. No rales or rhonchi. HEART: S1, S2 normal. No S3. No murmur, gallop or regurgitation. ABDOMEN: Soft, nontender. Bowel sounds active. No rigidity. No rebound or guarding. No CVA tenderness. EXTREMITIES: No clubbing, cyanosis or pedal edema. Decreased sensation in the fingers of the right hand. Strength is normal. MUSCULOSKELETAL: No joint swelling. NEUROLOGIC: Awake, alert, oriented times three. No focal deficit. LYMPHATIC: No lymph nodes palpable. SKIN: Intact. LABS: WBC 11.40, hgb 12.3, hct 37.1, plt count 280, sodium 138, potassium 4.5, chloride 101, bicarb 25, BUN 27, creatinine 0.99 and glucose 98. ASSESSMENT: 1. Weakness 2. TIA 3. Left sided weakness 4. Status post fall 5. COPD 6. Carpal tunnel syndrome of the right hand 7. Chronic pain syndrome takes medical marijuana 8. History of TAA 9. Depression PLAN: 1. Continue physical therapy and occupation therapy 2. Fall precaution 3. Activity as tolerated Follow the patient in daily rounds. TIME SPENT: More than 35 minutes MTDD
[2017-07-05] MEDS: PRILOSEC PO SCH (05:39)
[2017-07-05] MEDS: MULTIVITAMIN TABLET PO SCH (08:49)
[2017-07-05] MEDS: K-DUR PO SCH (08:49)
[2017-07-05] MEDS: CALCIUM 500 + VIT D 200 MG TABLET PO SCH ×2 (08:49→20:38)
[2017-07-05] MEDS: CELEXA PO SCH (08:49)
[2017-07-05] MEDS: PLAVIX PO SCH (08:49)
[2017-07-05] MEDS: NORCO 5-325 PO SCH ×2 (08:49→20:38)
[2017-07-05] MEDS: FLEXERIL PO SCH ×2 (08:49→20:38)
[2017-07-05] MEDS: METAMUCIL PO SCH ×3 (08:50→20:39)
[2017-07-05] MEDS: ZESTRIL PO SCH (08:50)
--- NOTE | 2017-07-05 09:23 | PN ---
DATE OF SERVICE: 07/03/17 SUBJECTIVE: The patient right upper extremity weakness was better. She started using the arm and she started eating right now but right lower extremity is still stiff and not able to raise but ankle able to raise but cannot flex knee or hip ankle joint movements are gone, not there. Not able to stand up. Can talk now and swallow fine without any problem. REVIEW OF SYSTEMS: CONSTITUTIONAL: No fever, no chills. HEENT: Normal. ENDOCRINE: No weight gain, no weight loss. CVS: No angina symptoms. No CHF symptoms. No palpitations. No atypical chest pain for CAD. No shortness of breath. No PND, no orthopnea. RESPIRATORY: No cough, no hemoptysis. GI: No nausea, no vomiting. No abdominal pain. : No hematuria. No polyuria. MUSCULOSKELETAL:. No joint swelling. PSYCHIATRIC: Not anxious. No depression. No suicidal thoughts. No homicidal thoughts. SKIN: Intact. No rash. PHYSICAL EXAMINATION: V/S: Blood pressure 120/63, respiratory rate 20, heart rate 72, temperature 98.3 with saturation 96%. HEENT: Normocephalic, atraumatic. Mucosa dry. NECK: Supple. No JVD, no carotid bruit. No lymphadenopathy. LUNGS: Bilateral entry is decreased and clear to auscultation. No rales or rhonchi. HEART: S1, S2 normal. No S3. No murmur, gallop or regurgitation. ABDOMEN: Soft, nontender. Bowel sounds active. No rigidity. No rebound or guarding. No CVA tenderness. EXTREMITIES: No clubbing, cyanosis or pedal edema. Right lower extremity weakness is present. Can not raise the right lower extremity. Stiff in the knee joint, stiff in the ankle joint. Right upper extremity four to five out of five. MUSCULOSKELETAL: No joint swelling. NEUROLOGIC: Awake, alert, oriented times three. No focal deficit. LYMPHATIC: No lymph nodes palpable. SKIN: Intact. LABS: WBC 13.28, hgb 13.4, hct 40.1, plt count 327, sodium 139, potassium 4.9, chloride 100, bicarb 28, BUN 28 and creatinine 1.18. ASSESSMENT: 1. Right sided weakness, CAT scan negative stroke which is in and out 2. Questionable muscle spasms 3. Hypertension 4. Osteoarthritis 5. DJD spine 6. Overactive bladder 7. Neuropathy 8. 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 Substance abuse 10.History of cervical cancer 11.Hysterectomy PLAN: 1. Continue Plavix 75mg PO daily 2. Physical therapy as of now stretching movements, no walking 3. Keep holding Tramadol, Oxybutynin and Neurontin 4. Continue Flexeril 5mg twice a day 5. Strict blood pressure control 6. Secondary prevention of the stroke been discussed with the family. TIME SPENT: More than 35 minutes MTDD
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
--- NOTE | 2017-07-05 14:38 | PN ---
DATE OF SERVICE: 06/29/17 SUBJECTIVE: The patient was admitted with the weakness and ataxia. Ct scan did show some old lacunar infarct. The patient was still having some left sided weakness and ataxia and unsteady gait. At that time the patient is put in the TCU care for the physical therapy. The patient has been more up and about walking. REVIEW OF SYSTEMS: CONSTITUTIONAL: No fever, no chills. HEENT: Normal. ENDOCRINE: No weight gain, no weight loss. CVS: No angina symptoms. No CHF symptoms. No palpitations. No atypical chest pain for CAD. No shortness of breath. No PND, no orthopnea. RESPIRATORY: No cough, no hemoptysis. GI: No nausea, no vomiting. No abdominal pain. : No hematuria. No polyuria. MUSCULOSKELETAL:. No joint swelling. PSYCHIATRIC: Not anxious. No depression. No suicidal thoughts. No homicidal thoughts. SKIN: Intact. No rash. PHYSICAL EXAMINATION: V/S: Blood pressure 103/63, respiratory rate 16, heart rate 88, temperature 97.3 and saturation 98 on 2 liters. HEENT: Normocephalic, atraumatic. Pallor positive. No icterus. NECK: Supple. No JVD, no carotid bruit. No lymphadenopathy. LUNGS: Clear to auscultation. No rales or rhonchi. HEART: S1, S2 normal. No S3. No murmur, gallop or regurgitation. ABDOMEN: Soft, nontender. Bowel sounds active. No rigidity. No rebound or guarding. No CVA tenderness. EXTREMITIES: No clubbing, cyanosis or pedal edema. Left sided upper extremity 4 out of 5. Lower extremity 4 out of 5. Ataxic gait. MUSCULOSKELETAL: No joint swelling. NEUROLOGIC: Awake, alert, oriented times three. No focal deficit. LYMPHATIC: No lymph nodes palpable. SKIN: Intact. LABS: WBC 8.63, hgb 11.6, hct 35.4, plt count 242, sodium 141, potassium 3.9, chloride 103, bicarb 29, BUN 13, creatinine 0.92, glucose 111 ASSESSMENT: 1. Ataxia 2. Weakness, left sided 3. TIA 4. History of lacunar infarct 5. COPD 6. Hypertension PLAN: 1. Continue with physical therapy 2. DUO NEBS 3. I&O's 4. Fall precautions Will follow the patient in daily rounds. TIME SPENT: More than 35 minutes MTDD
--- NOTE | 2017-07-05 14:45 | PN ---
DATE OF SERVICE: 06/30/17 SUBJECTIVE: Continued with the left sided weakness. The patient is needing some physical therapy. She is walking with the walker and it is helping a lot. REVIEW OF SYSTEMS: CONSTITUTIONAL: No fever, no chills. HEENT: Normal. ENDOCRINE: No weight gain, no weight loss. CVS: No angina symptoms. No CHF symptoms. No palpitations. No atypical chest pain for CAD. No shortness of breath. No PND, no orthopnea. RESPIRATORY: No cough, no hemoptysis. GI: No nausea, no vomiting. No abdominal pain. : No hematuria. No polyuria. MUSCULOSKELETAL:. No joint swelling. PSYCHIATRIC: Not anxious. No depression. No suicidal thoughts. No homicidal thoughts. SKIN: Intact. No rash. PHYSICAL EXAMINATION: V/S: Blood pressure 124/72, respiratory rate 16, heart rate 72, temperature 97.1 and saturation 98. HEENT: Normocephalic, atraumatic. Mucosa dry, Pallor positive. No icterus. NECK: Supple. No JVD, no carotid bruit. No lymphadenopathy LUNGS: Clear to auscultation. No rales or rhonchi. HEART: S1, S2 normal. No S3. No murmur, gallop or regurgitation. ABDOMEN: Soft, nontender. Bowel sounds active. No rigidity. No rebound or guarding. No CVA tenderness. EXTREMITIES: No clubbing, cyanosis or pedal edema. Left sided mild weakness is present. MUSCULOSKELETAL: No joint swelling. NEUROLOGIC: Awake, alert, oriented times three. No focal deficit. LYMPHATIC: No lymph nodes palpable. SKIN: Intact. LABS: WBC 11.40, hgb 12.3, hct 37.1, plt count 280, sodium 138, potassium 4.5, chloride 101, bicarb 25, BUN 27, creatinine 0.99 ASSESSMENT: 1. Left sided weakness with questionable TIA 2. Status post fall with left hip pain 3. Near syncopal episodes 4. COPD 5. Hypertension 6. DJD spine PLAN: 1. Continue physical therapy 2. Keflex 3. The patient can go out with the family for the [place] dinner and come back. The patient's [id number] will be taking care of the responsibility of the patient. TIME SPENT: More than 30 minutes MTDD
[2017-07-06] MEDS: PRILOSEC PO SCH (05:35)
[2017-07-06] MEDS: NORCO 5-325 PO SCH ×2 (10:10→20:43)
[2017-07-06] MEDS: K-DUR PO SCH (10:11)
[2017-07-06] MEDS: MULTIVITAMIN TABLET PO SCH (10:11)
[2017-07-06] MEDS: FLEXERIL PO SCH ×2 (10:11→20:42)
[2017-07-06] MEDS: CALCIUM 500 + VIT D 200 MG TABLET PO SCH ×2 (10:12→20:42)
[2017-07-06] MEDS: CELEXA PO SCH (10:12)
[2017-07-06] MEDS: PLAVIX PO SCH (10:12)
[2017-07-06] MEDS: ZESTRIL PO SCH (10:12)
[2017-07-06] MEDS: METAMUCIL PO SCH ×3 (10:19→23:19)
[2017-07-06] MEDS ORDERED: ZOFRAN 4 MG/2 ML ONE (13:55)
[2017-07-06] MEDS: ZOFRAN 4 MG/2 ML IM PRN ×2 (13:58→20:47)
--- NOTE | 2017-07-06 15:08 | PN ---
DATE OF SERVICE: 07/05/17 SUBJECTIVE: The patient was admitted having the right sided weakness but right upper extremity is a lot better. Still not able to stand up and walk because right lower extremity has still weakness. Can bend the knee and bend at the hip but at ankle joint is in extensor position. Eating good and not been choking on the food. REVIEW OF SYSTEMS: CONSTITUTIONAL: No fever, no chills. HEENT: Normal. ENDOCRINE: No weight gain, no weight loss. CVS: No angina symptoms. No CHF symptoms. No palpitations. No atypical chest pain for CAD. No shortness of breath. No PND, no orthopnea. RESPIRATORY: No cough, no hemoptysis. GI: No nausea, no vomiting. No abdominal pain. : No hematuria. No polyuria. MUSCULOSKELETAL:. No joint swelling. PSYCHIATRIC: Not anxious. No depression. No suicidal thoughts. No homicidal thoughts. SKIN: Intact. No rash. PHYSICAL EXAMINATION: V/S: Blood pressure 117/74, respiratory rate 18, heart rate 111, temperature 97.0 with saturation 94%. HEENT: Normocephalic, atraumatic. Mucosa dry. NECK: Supple. No JVD, no carotid bruit. No lymphadenopathy. LUNGS: Clear to auscultation. No rales or rhonchi. HEART: S1, S2 normal. No S3. No murmur, gallop or regurgitation. ABDOMEN: Soft, nontender. Bowel sounds active. No rigidity. No rebound or guarding. No CVA tenderness. EXTREMITIES: No clubbing, cyanosis or pedal edema. upper extremity strength is almost normal. Lower extremity can raise the right leg up in the air and can bend it and extent it but the ankle is fixed in a extensor position and can not be moved with the stiffness. MUSCULOSKELETAL: No joint swelling. NEUROLOGIC: Awake, alert, oriented times three. No focal deficit. LYMPHATIC: No lymph nodes palpable. SKIN: Intact. LABS: WBc 13.28, hgb 13.4, hct 40.1, plt count 327, sodium 139, potassium 4.9, chloride 100, bicarb 28, BUN 28, creatinine 1.18 ASSESSMENT: 1. Right sided weakness with muscular stiffness most likely from the medication side effects 2. Tizanidine. Tramadol is on hold. 3. Initial left sided weakness with TIA 4. Hypertension 5. Anxiety 6. Depression PLAN: 1. Will start the patient on Celexa 2. Stop the Lexapro 3. Continue the current medications 4. Physical therapy, please follow with the patient. TIME SPENT: More than 35 minutes MTDD
[2017-07-07] MEDS: PRILOSEC PO SCH (05:31)
[2017-07-07] MEDS: FLEXERIL PO SCH ×2 (08:58→20:17)
[2017-07-07] MEDS: K-DUR PO SCH (08:59)
[2017-07-07] MEDS: ZESTRIL PO SCH (08:59)
[2017-07-07] MEDS: CALCIUM 500 + VIT D 200 MG TABLET PO SCH ×2 (08:59→20:17)
[2017-07-07] MEDS: NORCO 5-325 PO SCH ×2 (08:59→20:18)
[2017-07-07] MEDS: PLAVIX PO SCH (08:59)
[2017-07-07] MEDS: CELEXA PO SCH (08:59)
[2017-07-07] MEDS: MULTIVITAMIN TABLET PO SCH (08:59)
[2017-07-07] MEDS: METAMUCIL PO SCH ×3 (09:00→20:49)
[2017-07-07] MEDS: ZOFRAN 4 MG/2 ML IM PRN (14:10)
[2017-07-08] MEDS: PRILOSEC PO SCH (05:35)
[2017-07-08] MEDS ORDERED: KAYEXALATE SUSP PO STA (10:19)
[2017-07-08] MEDS ORDERED: ALBUTEROL 0.083% NEB NEB STA (10:21)
[2017-07-08] MEDS: FLEXERIL PO SCH ×2 (10:29→20:33)
[2017-07-08] MEDS: CELEXA PO SCH (10:29)
[2017-07-08] MEDS: METAMUCIL PO SCH ×3 (10:29→20:35)
[2017-07-08] MEDS: K-DUR PO SCH (10:29)
[2017-07-08] MEDS: MULTIVITAMIN TABLET PO SCH (10:30)
[2017-07-08] MEDS: PLAVIX PO SCH (10:30)
[2017-07-08] MEDS: CALCIUM 500 + VIT D 200 MG TABLET PO SCH ×2 (10:30→20:33)
[2017-07-08] MEDS: ZESTRIL PO SCH (10:30)
[2017-07-08] MEDS: NORCO 5-325 PO SCH ×2 (10:38→20:33)
[2017-07-09] MEDS: PRILOSEC PO SCH (05:45)
[2017-07-09] MEDS: PLAVIX PO SCH (08:23)
[2017-07-09] MEDS: ZESTRIL PO SCH (08:23)
[2017-07-09] MEDS: CELEXA PO SCH (08:23)
[2017-07-09] MEDS: NORCO 5-325 PO SCH ×2 (08:23→21:32)
[2017-07-09] MEDS: MULTIVITAMIN TABLET PO SCH (08:23)
[2017-07-09] MEDS: CALCIUM 500 + VIT D 200 MG TABLET PO SCH ×2 (08:23→21:32)
[2017-07-09] MEDS: FLEXERIL PO SCH ×2 (08:24→21:32)
[2017-07-09] MEDS: METAMUCIL PO SCH ×3 (08:26→21:35)
[2017-07-09] MEDS ORDERED: SODIUM CHLORIDE 1,000 ML IV SCH (17:00)
[2017-07-10] MEDS: PRILOSEC PO SCH (05:51)
[2017-07-10] MEDS: CELEXA PO SCH (08:18)
[2017-07-10] MEDS: CALCIUM 500 + VIT D 200 MG TABLET PO SCH ×2 (08:19→21:22)
[2017-07-10] MEDS: ZESTRIL PO SCH (08:19)
[2017-07-10] MEDS: METAMUCIL PO SCH ×3 (08:19→21:22)
[2017-07-10] MEDS: FLEXERIL PO SCH ×2 (08:19→21:22)
[2017-07-10] MEDS: MULTIVITAMIN TABLET PO SCH (08:19)
[2017-07-10] MEDS: NORCO 5-325 PO SCH ×2 (08:19→21:21)
[2017-07-10] MEDS: PLAVIX PO SCH (08:19)
[2017-07-10] MEDS: SODIUM CHLORIDE 1,000 ML IV SCH (08:20)
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
--- NOTE | 2017-07-10 15:47 | PN ---
DATE OF SERVICE: 07/08/17 SUBJECTIVE: Admitted with left-sided weakness initially and TIA symptoms. The patient gradually developed problem with right-sided weakness; right upper extremity had improved a lot. In the right lower extremty the patient is still not able to walk, ankle is stiff and unable to bend. The patient has been started on Plavix. The patient had episode with right-sided weakness. Discussed case with Dr. Cabrera. As the patient has been having these episodes off and on for almost one month he thought giving TPA would be very dangerous to the patient so suggested to continue Plavix. REVIEW OF SYSTEMS: CONSTITUTIONAL: Weakness. No fever, no chills. HEENT: Normal. ENDOCRINE: No weight gain, no weight loss. CVS: No angina symptoms. No CHF symptoms. No palpitations. No atypical chest pain for CAD. No shortness of breath. No PND, no orthopnea. RESPIRATORY: No cough, no hemoptysis. GI: No nausea, no vomiting. No abdominal pain. : No hematuria. No polyuria. MUSCULOSKELETAL:. No joint swelling. PSYCHIATRIC: Not anxious. No depression. No suicidal thoughts. No homicidal thoughts. SKIN: Intact. No rash. PHYSICAL EXAMINATION: V/S: BP 98/55, respiratory rate 16, heart rate 85, temperature 97.0. Saturation 97%. HEENT: Normocephalic, atraumatic. Mucosa dry. NECK: Supple. No JVD, no carotid bruit. No lymphadenopathy. LUNGS: Bilateral air entry is decreased and clear to auscultation. No rales or rhonchi. HEART: S1, S2 normal. No S3. No murmur, gallop or regurgitation. ABDOMEN: Soft, nontender. Bowel sounds active. No rigidity. No rebound or guarding. No CVA tenderness. EXTREMITIES: No clubbing, cyanosis or pedal edema. MUSCULOSKELETAL: Right ankle stiffness is present. Range of motion of hip and knee are better now. Strength in upper extremities is 4 to 5/5. NEUROLOGIC: Awake, alert, oriented times three. No focal deficit. LYMPHATIC: No lymph nodes palpable. SKIN: Intact. LABS: White count 13.28, hemoglobin 13.4, hematocrit 40.1, platelet count 327. Sodium 139, potassium 4.9, chloride 100, bicarb 28, BUN 28, creatinine 1.18. ASSESSMENT: 1. INITIAL LEFT-SIDED WEAKNESS WITH TIA 2. RIGHT-SIDED WEAKNESS, QUESTIONABLE STROKE VERSUS SPASTIC REACTION 3. HYPERTENSION NOW HYPOTENSIVE 4. COPD 5. HISTORY OF FALL PLAN: 1. Will hold blood pressure medication with blood pressure less than 100. 2. Fall precautions. 3. Continue Plavix 75 mg p.o. daily. TIME SPENT: More than 35 minutes MTDD
[2017-07-11] MEDS: SODIUM CHLORIDE 1,000 ML IV SCH ×2 (02:25→20:32)
[2017-07-11] MEDS: PRILOSEC PO SCH (05:32)
[2017-07-11] MEDS: MULTIVITAMIN TABLET PO SCH (08:34)
[2017-07-11] MEDS: FLEXERIL PO SCH ×2 (08:34→20:32)
[2017-07-11] MEDS: CALCIUM 500 + VIT D 200 MG TABLET PO SCH ×2 (08:34→20:32)
[2017-07-11] MEDS: NORCO 5-325 PO SCH ×2 (08:34→20:32)
[2017-07-11] MEDS: CELEXA PO SCH (08:35)
[2017-07-11] MEDS: PLAVIX PO SCH (08:35)
[2017-07-11] MEDS: METAMUCIL PO SCH ×3 (08:35→20:38)
[2017-07-11] MEDS: ZESTRIL PO SCH (08:35)
--- NOTE | 2017-07-11 15:00 | PN ---
Subjective - Patient Information Date of Evaluation: 07/11/17 Date of Arrival on Unit: 06/26/17 Diagnosis: TIA, metabolic abnormalities Patient Reports/Comments: pt reports she feels she is getting better. She states she is planning to get home this weekend. Objective Objective: pt independent with rolling and scooting up in bed. pt transferred sup to/from sit with SBA sit to/from stand with CGA. pt amb with rwx with CGA with frequent verbal cues to advance RLE. pt uses circumduction of hip to advance R LE due to foot drop on R. Strength: LLE 4 to 4+/5, RLE hip flex 4/5, knee flex/ext 4/5 no trace DF, PF 2-/5. Tinetti score: 06/05 which has declined due to new onset of R side weakness. Balance: dyn stand balance Short Term Goals GOAL #1: pt transfer sup to/from sit independently, sit to/from stand SBA Goal to be met by: 07/02/17 Progress towards Goal:: Met GOAL #2: pt amb 150ft with rwx with no LOB and improved sequencing with CGA Goal to be met by: 07/02/17 Progress towards Goal:: Partially Met Comments:: pt amb 140ft with rwx with CGA with cues for advancing RLE GOAL #3: pt demonstrate independence with bed mobility Goal to be met by: 07/02/17 Progress towards Goal:: Met Jail Goals GOAL #1: pt amb functional household distances with rwx with SBA to CGA with no LOB Goal to be met by: 07/13/17 Progress towards goal: Progressing GOAL #2: pt with improved strength BLE 4- to 4/5 except R ankle independent with HEP Goal to be met by: 07/13/17 Progress towards goal: Progressing Comments: trace dF on R noted GOAL #3: pt demonstrate improved dyn stand balance noted by tinetti score of Goal to be met by: 07/13/17 Progress towards goal: Regressing Comments: Tinetti has decreased due to new onset of R sided weakness. Assessment and Plan Assessment/Progress: pt has had new onset of R sided weakness and decreased balance and transfers and gait due to new event. Since last week, patient has made progress and is planning to get fitted for AFO. Plan: plan to continue with gait and transfer training as well as strengthening , balance, and work on stair training.
[2017-07-12] MEDS: PRILOSEC PO SCH (05:34)
--- NOTE | 2017-07-12 08:25 | PN ---
DATE OF SERVICE: 07/09/17 SUBJECTIVE: The patient complaints about still having some weakness in the right lower extremities. Ankle still in the extended position. The patient is eating good. Potassium was high yesterday. Kayexalate was given and it came down to 4.3 today. REVIEW OF SYSTEMS: CONSTITUTIONAL: No fever, no chills. HEENT: Normal. ENDOCRINE: No weight gain, no weight loss. CVS: No angina symptoms. No CHF symptoms. No palpitations. No atypical chest pain for CAD. No shortness of breath. No PND, no orthopnea. RESPIRATORY: No cough, no hemoptysis. GI: No nausea, no vomiting. No abdominal pain. : No hematuria. No polyuria. MUSCULOSKELETAL: No joint swelling. PSYCHIATRIC: Not anxious. No depression. No suicidal thoughts. No homicidal thoughts. SKIN: Intact. No rash. PHYSICAL EXAMINATION: V/S: Blood pressure 83/54, respiratory rate 16, heart rate 91, temperature 97.3 and saturation 95%. HEENT: Normocephalic, atraumatic. Mucosa dry. Pallor positive. NECK: Supple. No JVD, no carotid bruit. No lymphadenopathy. LUNGS: Decreased and clear to auscultation. No rales or rhonchi. HEART: S1, S2 normal. No S3. No murmur, gallop or regurgitation. ABDOMEN: Soft, nontender. Bowel sounds active. No rigidity. No rebound or guarding. No CVA tenderness. EXTREMITIES: No clubbing, cyanosis or pedal edema. Upper extremity strength is 5 out of 5 and lower extremities right 4 out of 5 and the ankle is in extensor position. Muscle rigidity is present in the lower extremities. MUSCULOSKELETAL: No joint swelling. NEUROLOGIC: Awake, alert, oriented times three. No focal deficit. LYMPHATIC: No lymph nodes palpable. SKIN: Intact. LABS: Sodium 136, potassium 4.3, chloride 105, bicarb 25, BUN 40, creatinine 1.75, WBC 9.36, hgb 13.2, hct 40, plt count 325 ASSESSMENT: 1. Hyperkalemia which is being treated 2. TIA with left sided weakness 3. Questionable CVA on the right side. Most of the weakness has resolved 4. Right ankle weakness 5. Hypertension 6. Acute renal failure 7. Dehydration 8. COPD PLAN: 1. Will start the patient on IV fluids 2. Continue the physical therapy 3. Fall precautions 4. Continue the Plavix TIME SPENT: More than 35 minutes MTDD
[2017-07-12] MEDS: FLEXERIL PO SCH ×2 (08:35→20:20)
[2017-07-12] MEDS: CELEXA PO SCH (08:35)
[2017-07-12] MEDS: MULTIVITAMIN TABLET PO SCH (08:35)
[2017-07-12] MEDS: PLAVIX PO SCH (08:35)
[2017-07-12] MEDS: NORCO 5-325 PO SCH ×2 (08:35→20:21)
[2017-07-12] MEDS: ZESTRIL PO SCH (08:35)
[2017-07-12] MEDS: CALCIUM 500 + VIT D 200 MG TABLET PO SCH ×2 (08:35→20:20)
[2017-07-12] MEDS: METAMUCIL PO SCH ×3 (08:36→22:37)
--- NOTE | 2017-07-12 10:12 | PN ---
DATE OF SERVICE: 07/10/17 SUBJECTIVE: The patient was admitted with the initial left sided weakness and patient has CV on the right side. Still has some residual weakness on the right ankle but she was able to walk with the walker to the bathroom. Family wants to take her home once she is more better. REVIEW OF SYSTEMS: CONSTITUTIONAL: No fever, no chills. HEENT: Normal. ENDOCRINE: No weight gain, no weight loss. CVS: No angina symptoms. No CHF symptoms. No palpitations. No atypical chest pain for CAD. No shortness of breath. No PND, no orthopnea. RESPIRATORY: No cough, no hemoptysis. GI: No nausea, no vomiting. No abdominal pain. : No hematuria. No polyuria. MUSCULOSKELETAL: No joint swelling. PSYCHIATRIC: Not anxious. No depression. No suicidal thoughts. No homicidal thoughts. SKIN: Intact. No rash. PHYSICAL EXAMINATION: V/S: Blood pressure 103/59, respiratory rate 18, heart rate 88, temperature 97.7 and saturation 98. HEENT: Normocephalic, atraumatic. Mucosa dry. Pallor positive. No icterus. NECK: Supple. No JVD, no carotid bruit. No lymphadenopathy. LUNGS: Decreased and clear to auscultation. No rales or rhonchi. HEART: S1, S2 normal. No S3. No murmur, gallop or regurgitation. ABDOMEN: Soft, nontender. Bowel sounds active. No rigidity. No rebound or guarding. No CVA tenderness. EXTREMITIES: No clubbing, cyanosis or pedal edema. Right ankle is still in the extensor position. Can lift right leg up and bend the knees by herself. MUSCULOSKELETAL: No joint swelling. NEUROLOGIC: Awake, alert, oriented times three. No focal deficit. LYMPHATIC: No lymph nodes palpable. SKIN: Intact. LABS: WBC 9.36, hgb 13.2, hct 40.0, plt count 325, sodium 136, potassium 4.3, chloride 105, bicarb 25, BUN 40, creatinine 1.75. ASSESSMENT: 1. Acute renal failure 2. Hyperkalemia which is better 3. Right sided weakness for the CVA most of the weakness is resolved except the right ankle foot drop 4. Left sided weakness is resolved 5. TIA 6. COPD 7. Anxiety 8. Depression PLAN: 1. Will get CBC and CMP 2. IV fluids 3. Continue with the physical therapy and occupational therapy TIME SPENT: More than 35 minutes MTDD
--- NOTE | 2017-07-12 10:24 | PN ---
DATE OF SERVICE: 07/11/17 SUBJECTIVE: The patient is up and about walking with the walker. BUN and creatinine has improved today from 40 BUN to 25 and 1.75 creatinine to 1.44. REVIEW OF SYSTEMS: CONSTITUTIONAL: No fever, no chills. HEENT: Normal. ENDOCRINE: No weight gain, no weight loss. CVS: No angina symptoms. No CHF symptoms. No palpitations. No atypical chest pain for CAD. No shortness of breath. No PND, no orthopnea. RESPIRATORY: No cough, no hemoptysis. GI: No nausea, no vomiting. No abdominal pain. : No hematuria. No polyuria. MUSCULOSKELETAL: No joint swelling. PSYCHIATRIC: Not anxious. No depression. No suicidal thoughts. No homicidal thoughts. SKIN: Intact. No rash. PHYSICAL EXAMINATION: V/S: Blood pressure 99/55, respiratory rate 20, heart rate 79, temperature 97.1 with saturation 90. HEENT: Normocephalic, atraumatic. Mucosa dry. Pallor positive. No icterus. NECK: Supple. No JVD, no carotid bruit. No lymphadenopathy. LUNGS: Bilateral entry is decreased and clear to auscultation. No rales or rhonchi. HEART: S1, S2 normal. No S3. No murmur, gallop or regurgitation. ABDOMEN: Soft, nontender. Bowel sounds active. No rigidity. No rebound or guarding. No CVA tenderness. EXTREMITIES: No clubbing, cyanosis or pedal edema. Right ankle foot drop with stiffness in the ankle joint is present. Upper extremity strength is a 5 out of 5. MUSCULOSKELETAL: No joint swelling. NEUROLOGIC: Awake, alert, oriented times three. No focal deficit. LYMPHATIC: No lymph nodes palpable. SKIN: Intact. LABS: Sodium 139, potassium 4.2, chloride 104, bicarb 28, BUN 25, creatinine 1.44, WBC 6.91 and hgb 11.6, hct 34.7 and plt count 278. ASSESSMENT: 1. Acute renal failure which is getting better 2. Hyperkalemia, resolved 3. Right sided CVA with ankle foot drop 4. Left sided weakness which is totally resolved 5. TIA 6. COPD 7. Depression 8. Anxiety PLAN: 1. Continue walking which is able to do up to the bathroom and walk back 2. Will get AFO boot for right ankle 3. Fall precautions 4. Calcium and Vitamin D 5. Strengthening exercises TIME SPENT: More than 35 minutes MTDD
--- NOTE | 2017-07-12 12:52 | OTPN ---
Subjective - Patient Information Date of Evaluation: 06/27/17 Date of Arrival on Unit: 06/26/17 Diagnosis: CVA Patient Reports/Comments: Pt reports she has no control over her Right foot. She reports she had another TIA. Objective Objective: Pt uses a RW to ambulate minimal assistance and verbal cues to take her time and focus on the Right foot and safety. Short Term Goals - Goals GOAL 1: Pt to tolerate 15 minutes of standing activity. Goal to be met by: 07/18/17 Progress towards goal: Partially Met GOAL 2: Pt to be CGA for sink level ADLS. Goal to be met by: 07/18/17 Progress towards goal: Met GOAL 3: Pt to improve standing balance to Fair+ Goal to be met by: 07/18/17 Progress towards goal: Met Intermediate Goals GOAL 1: Pt to tolerate 20 minutes of standing activity. Goal to be met by: 07/25/17 Progress towards goal: Progressing GOAL 2: Pt to be SBA for sink level ADLS. Goal to be met by: 07/25/17 Progress towards goal: Progressing GOAL 3: Pt to improve standing balance to Fair+/Good- Goal to be met by: 07/25/17 Progress towards goal: Progressing Assessment and Plan Assessment/Progress: Pt is improving in strength and activity tolerance. Pt continues to require verbal cues and minimal assist for transfers. Plan: Pt to return to home with home health at discharge. Pt to ambulate at all times with Rolling Walker.
[2017-07-13 05:39] VITALS: BP 82/46; TEMP 97.8
[2017-07-13] MEDS: PRILOSEC PO SCH (05:42)
[2017-07-13] MEDS: CALCIUM 500 + VIT D 200 MG TABLET PO SCH (08:31)
[2017-07-13] MEDS: NORCO 5-325 PO SCH (08:31)
[2017-07-13] MEDS: PLAVIX PO SCH (08:31)
[2017-07-13] MEDS: FLEXERIL PO SCH (08:31)
[2017-07-13] MEDS: CELEXA PO SCH (08:32)
[2017-07-13] MEDS: MULTIVITAMIN TABLET PO SCH (08:32)
[2017-07-13] MEDS: METAMUCIL PO SCH ×3 (08:32→14:36)
[2017-07-13] MEDS: ZESTRIL PO SCH (08:32)
--- NOTE | 2017-07-18 15:16 | DS ---
DATE OF SERVICE: 07/13/17 FINAL DIAGNOSIS: 1. CVA WITH RIGHT FOOT DROP 2. TIA 3. LEFT-SIDED WEAKNESS WHICH HAS RESOLVED 4. HISTORY OF FALLS 5. DECLINE IN MOBILITY 6. ATAXIA 7. HYPERTENSION 8. NEUROPATHY 9. 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 SUBSTANCE USE, MARIJUANA 11. HISTORY OF CERVICAL CANCER 12. HYSTERECTOMY 13. HYPERKALEMIA, WHICH HAS RESOLVED 14. ACUTE RENAL FAILURE WHICH HAS RESOLVED 15. ANEMIA, MOST LIKELY DILUTIONAL DISCHARGE INSTRUCTIONS: Followup appointment: [facility] within one week, 07/18/17. Followup with Dr. Cabrera, 08/20/17. [facility] for nursing assessment, physical and occupational therapy. The patient is to use AFO to right foot with ambulation. MEDICATIONS AT DISCHARGE: Calcium Carbonate Vitamin D3 Fiber tablet Multivitamin Prilosec Stop Ditropan, Neurontin, Tramadol and Lexapro NEW PRESCRIPTIONS: Cotuit 5 mg once a day Celexa 20 daily Plavix 75 mg p.o. daily Flexeril 5 twice a day Lisinopril 40 mg p.o. daily DIET INSTRUCTIONS: Cardiac and healthy ACTIVITY: As much as tolerated. Gradual strengthening exercises. SMOKING: N/A DISEASE SPECIFIC EDUCATION: TIA STROKE RECURRENT STROKE DISCUSSED - VERBALIZED UNDERSTANDING FALLS AND FRACTURES DISCUSSED HOSPITAL COURSE: This is a 77-year-old female, who initially came to the hospital with left- sided weakness and numbness. At that time, the patient was admitted to the hospital. CT scan of the head was negative which showed old lacunar infarct. Carotid arteries were less than 50%. Cholesterol was normal. Echocardiogram was done which did not show any acute findings with mild LVH. Holter was done which did not show any bradycardia or atrial fibrillation. Echocardiogram showed EFT 659, mild right ventricular cavity enlargement, normal left ventricular contractility, normal valves. The patient was still having some ataxia with walking. As the patient's weakness presented after a whole day, we did not do any thrombolytics. The patient was kept at [facility] with agreement with family and son, who is the power of litigation attorney associate. The patient needed longer care and at that time the patient was put in transitional care unit and started physical and occupational therapy. While at occupational therapy, the patient did have episode where she as aphasic and not able to talk for a couple of seconds and voice came back. CT again did not show any acute findings. The patient, on , suddenly started having right-sided weakness with aphasia. I went back to the hospital, evaluated the patient and by the time I went back, the patient started talking but still had weakness in the right upper extremity and right lower extremity as well as right foot drop. It was more a vague stiffness in the joints rather than the weakness but her power system dispatcher was 4 /5 in the upper extremity but was not able to raise the shoulder or bend the elbow. CT again was negative. At that time, I talked with Dr. Cabrera, consulting neurologist at [facility]. He did clearly say that because of the symptoms being off and on for nearly one month, which has been going and coming and changing from the left to right side, it would be dangerous to give any TPA at the given time so suggested to give loading dose of Plavix 300 mg with 75 mg p.o. daily. The patient, again after two days, the right upper extremity started working fine, did not have any weakness. Right lower extremity started elevating it but there was a extensor defect at the right ankle where the right ankle was in flexor position and she was not able to move it without any help. She started gradually walking with walker, still ataxic. We thought maybe it was serotonin syndrome so we stopped Tramadol and Ditropan and Neurontin and started on Flexeril but did not help much. It was not serotonin syndrome. On the present day, the patient is still slightly ataxic, right upper extremity strength is 4 to 5/5. She is smiling normally. No choking episodes. She still has right ankle weakness with flexor deformity there. The patient's family is willing to take her home and the patient will be discharged with the family. TIME SPENT: MORE THAN 65 MINUTES [facility]
== END 2017-07-13 15:21 | disposition home health service (06) | DRG 65 ==
LOC: MEDSURG A 12:26
PROVIDERS: ADMIT Emergency Medicine; ATTEND Emergency Medicine
DX: I63.9 Cerebral infarction, unspecified (principal); G81.94 Hemiplegia, unspecified affecting left nondominant side; G45.9 Transient cerebral ischemic attack, unspecified; N17.9 Acute kidney failure, unspecified; G81.91 Hemiplegia, unspecified affecting right dominant side; R53.1 Weakness; R26.0 Ataxic gait; I10 Essential (primary) hypertension; E87.5 Hyperkalemia; M21.371 Foot drop, right foot; R13.10 Dysphagia, unspecified; R55 Syncope and collapse; M25.562 Pain in left knee; M25.512 Pain in left shoulder; D64.9 Anemia, unspecified; J06.9 Acute upper respiratory infection, unspecified; G62.9 Polyneuropathy, unspecified; F12.90 Cannabis use, unspecified, uncomplicated; M47.9 Spondylosis, unspecified; J44.9 Chronic obstructive pulmonary disease, unspecified; G56.01 Carpal tunnel syndrome, right upper limb; M62.838 Other muscle spasm; N32.81 Overactive bladder; F19.10 Other psychoactive substance abuse, uncomplicated; F41.8 Other specified anxiety disorders; G89.4 Chronic pain syndrome; M19.90 Unspecified osteoarthritis, unspecified site; W19.XXXA Unspecified fall, initial encounter; Z91.81 History of falling; Z72.0 Tobacco use; Z86.73 Personal history of transient ischemic attack (TIA), and cerebral infarction without residual deficits; Z87.828 Personal history of other (healed) physical injury and trauma; Z85.41 Personal history of malignant neoplasm of cervix uteri
CPT/HCPCS: 36415; 80053; 84132; 85025; 93227; 94640; 97802

== ENCOUNTER 2017-07-26 10:26 | Emergency (ER) | payer OTHER ==
[2017-07-26 10:31] VITALS: BP 144/84; TEMP 98.3; BMI 21.9
--- NOTE | 2017-07-26 11:30 | ED.PDOC ---
General ED Provider: Dr. JESSICA MICHELLE Chief Complaint: Weakness Stated Complaint: Lt outer upper lip and tongue numbness. Onset this AM; Has resolved now. Hx of TIA , CVA in June 2017.Was in rehab and not living with her son and daughter in law (a RN here at Hospital) Time Seen by Physician: 10:40 Mode of Arrival: Wheelchair Information Source: Patient Exam Limitations: No limitations Primary [facility] Nursing and Triage Documentation Reviewed and Agree: Yes Reviewed sepsis parameters & appropriate labs ordered?: Yes System Inflammatory Response Syndrome: Not Applicable Sepsis Protocol: For patient's 13 years and over: Temp is 96.8 and below OR 101 and greater Pulse >90 BPM Resp >20/minute Acutely Altered Mental Status Are patient's symptoms suggestive of a new infection, such as: -Pneumonia -Skin, Soft Tissue -Endocarditis -UTI -Bone, Joint Infection -Implantable Device -Acute Abdominal Infection -Wound Infection -Meningitis -Blood Stream Catheter Infection -Unknown System Inflammatory Response Syndrome: Not Applicable Review of Systems - Review Of Systems Constitutional: Reports: Weakness Eyes: Reports: No symptoms Ears, Nose, Mouth, Throat: Reports: No symptoms Respiratory: Reports: No symptoms Cardiac: Reports: No symptoms GI: Reports: No symptoms : Reports: No symptoms Musculoskeletal: Reports: No symptoms Skin: Reports: No symptoms Neurological: Reports: Anxiety, Numbness, Tingling (involving lt outer upper lip and tongue), Unable to move lower ext (lt foot). Denies: Emotional problems , Cognitive dysfunction Endocrine: Reports: No symptoms Hematologic/Lymphatic: Reports: No symptoms All Other Systems: Reviewed and Negative Past Medical History - Past Medical History Previously Healthy: Yes Endocrine: Reports: None Cardiovascular: Reports: None Respiratory: Reports: None Hematological: Reports: None Gastrointestinal: Reports: None Genitourinary: Reports: None Neuro/Psych: Reports: Migraine, Anxiety, Depression, Other (TIA/CVA affecting RLE) Musculoskeletal: Reports: Arthritis (chronic neck pain ), Back Pain Cancer: Reports: None Last Menstrual Period: n/a - Surgical History General Surgical History: Reports: Hysterectomy (1964), Appendectomy, Cholecystectomy, Tonsillectomy, Back Surgery - Family History Family History: Reports: None - Social History Smoking Status: Former smoker Hx Substance Use: Yes (marijuana) Alcohol Screening: None Physical Exam - Physical Exam Appearance: Well-appearing, Thin Ill-appearing: Mild Pain Distress: None Eyes: JAVIER, EOMI, Conjunctiva clear ENT: Ears normal, Nose normal, Oropharynx normal Neck: Supple Respiratory: Airway patent, Breath sounds clear, Breath sounds equal Cardiovascular: RRR, Pulses normal, No rub, No murmur GI/: Soft, Nontender, No masses, Bowel sounds normal Musculoskeletal: Normal strength (Mild Lt LE Paresis), ROM intact, No edema, No calf tenderness, Limited ROM Skin: Warm Neurological: Sensation intact Psychiatric: Affect appropriate Critical Care Note - Critical Care Note Total Time (mins): 0 Course - Course Hematology/Chemistry: 07/26/17 10:43 07/26/17 10:43 Orders, Labs, Meds: Lab Review 07/26/17 07/26/17 10:43 10:43 WBC 8.42 RBC 4.31 Hgb 13.6 Hct 40.3 MCV 93.5 MCH 31.6 H MCHC 33.7 RDW Coeff of Ella 13.0 Plt Count 302 Immature Gran % (Auto) 0.2 Neut % (Auto) 58.5 Lymph % (Auto) 26.8 [place] % (Auto) 5.9 Eos % (Auto) 7.5 H Baso % (Auto) 1.1 Immature Gran # (Auto) 0.0 Neut # 4.9 Lymph # 2.3 [place] # 0.5 Eos # 0.6 Baso # 0.1 Sodium 139 Potassium 3.0 L Chloride 99 Carbon Dioxide 23 Anion Gap 20.0 BUN 12 Creatinine 0.90 Estimated GFR (MDRD) 61.00 BUN/Creatinine Ratio 13.33 Glucose 179 H Calcium 9.3 Magnesium 1.4 L Total Bilirubin 0.4 AST 23 ALT 20 Alkaline Phosphatase 102 Troponin I < 0.0100 Total Protein 7.1 Albumin 4.5 Globulin 2.6 Albumin/Globulin Ratio 1.73 Orders Category Date Time Status EKG-(ED ONLY) Stat CARDIO 07/26/17 10:45 Completed CBC W/ AUTO DIFF Stat LAB 07/26/17 10:43 Completed CMP [COMPREHENSIVE METABOLIC PANEL] Stat LAB 07/26/17 10:43 Completed MAGNESIUM Stat LAB 07/26/17 10:43 Completed TROPONIN I Stat LAB 07/26/17 10:43 Completed URINALYSIS C & S IF INDICATED Stat LAB 07/26/17 11:[address] HEAD W/O CONTRAST Stat RADS 07/26/17 11:11 Completed Vital Signs: Temp Pulse Resp BP Pulse Ox 07/26/17 10:27 98.3 F 103 H 20 144/84 H 99 Departure - Departure Time of Disposition: 13:15 Disposition: LEFT W/OUT BEING SEEN Discharge Problem: TIA (transient ischemic attack) Condition: Good Pt referred to PMD for follow-up: Yes (1 wk) IPMP verified?: No Allergies/Adverse Reactions: Allergies amoxicillin Adverse Reaction (Verified 06/23/17 13:37) Rash codeine Adverse Reaction (Verified 06/23/17 13:37) gets gas Home Medications: Ambulatory Orders Calcium Carb/Vitamin D3/Vit K1 [Calcium + D Soft Chewable Tab] 1 each PO BID 02/22 Calcium Polycarbophil [Fiber Tabs] 500 mg PO TID 06/15/17 Multivitamin [Multi-Day Vitamins] 1 each PO DAILY 06/15/17 Omeprazole Magnesium [Prilosec Otc] 20 mg PO DAILY 06/15/17 Citalopram Hydrobromide [Celexa] 20 mg PO DAILY #30 tablet 07/13/17 Clopidogrel Bisulfate [Plavix] 75 mg PO DAILY #30 tablet 07/13/17 Cyclobenzaprine HCl [Flexeril] 5 mg PO BID #60 tablet 07/13/17 Hydrocodone Bit/Acetaminophen [[place] 5-325] 1 tab PO DAILY PRN #30 tablet Lisinopril [Zestril] 40 mg PO DAILY #30 tablet 07/13/17 Disposition Discussed With: Patient, Family
--- NOTE | 2017-07-26 12:02 | CT ---
EXAM: CT Head HISTORY: Weakness left side COMPARISON: 07/02/2017 TECHNIQUE: CT head performed without contrast FINDINGS: There is no mass effect, midline shift, or intracranial hemmorhage. Rdz white differenti ation is preserved. There is no extra-axial collection. The ventricles, sulci, and basal cisterns a re patent and symmetric. There is chronic ischemic disease of the white matter and cerebral volume l oss. There is no depressed calvarial fracture. The mastoid air cells are clear. The visualized para nasal sinuses are clear. There are intracranial atherosclerotic calcifications. IMPRESSION: 1. No acute intracranial abnormality. 2. Chronic ischemic disease of the white matter and cerebral volume loss.
[2017-07-26] MEDS ORDERED: K-DUR PO STA (13:59)
== END 2017-07-26 14:21 | disposition left against medical advice (07) ==
LOC: ED 10:26
DX: G45.9 Transient cerebral ischemic attack, unspecified (principal); E87.6 Hypokalemia; Z79.899 Other long term (current) drug therapy; Z86.73 Personal history of transient ischemic attack (TIA), and cerebral infarction without residual deficits
CPT/HCPCS: 36415; 80053; 83735; 84484; 85025; 93005; 93010; 99284

== ENCOUNTER 2017-07-30 11:32 | Outpatient (CLI) | END 2017-07-30 11:33 | disposition home or self-care (01) | LOC: LAB 11:32 | PROVIDERS: ATTEND Emergency Medicine | DX: E87.6 Hypokalemia (principal) | CPT/HCPCS: 36415; 80048 ==

== ENCOUNTER 2017-08-09 13:13 | Outpatient (RCR) | payer OTHER ==
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
--- NOTE | 2017-08-28 10:43 | RS.OTQKDC ---
OT Discharge Date of Discharge: 08/28/17 Number of Visits: 1 Reason for Discharge: Pt attended therapy for evaluation only. Pt was scheduled for add'l tx but family called to cx with no add'l appointments made at this time. Pt DC'd at this time.
== END 2017-09-05 ==
PROVIDERS: ATTEND Emergency Medicine
DX: I63.9 Cerebral infarction, unspecified (principal)

== ENCOUNTER 2017-08-17 14:56 | Outpatient (CLI) ==
--- NOTE | 2017-08-17 15:21 | DI ---
Exam: Three x-rays of the lumbar spine. Comparison: CT lumbar spine performed 12/25/2013. Reason for exam: Pain without recent injury. FINDINGS: Pedicle screw and jose luis fixation is seen in the lumbar spine spanning L3-L5 without evidence of hardware complication. There is S-shaped scoliosis with moderate degenerative disease in the lum bosacral spine. The vertebral body heights are well maintained. There is multilevel degenerative di sease with intervertebral body disc space height narrowing and osteophyte formation. There is a boyd lar appearing grade 1 anterolisthesis of L4 on L5. Impression: 1. Operative changes after pedicle screw and jose luis fixation spanning L3-L5 without evidence of hardware complication. 2. Multilevel degenerative disease with intervertebral body disc space height loss and osteophyte fo rmation with facet hypertrophy.
== END 2017-08-17 14:57 | disposition home or self-care (01) ==
LOC: RAD 14:56
PROVIDERS: ATTEND Emergency Medicine
DX: M47.26 Other spondylosis with radiculopathy, lumbar region (principal)

== ENCOUNTER 2017-08-28 10:52 | Outpatient (CLI) ==
--- NOTE | 2017-08-28 12:54 | DEXA ---
EXAM: BONE DENSITOMETRY HISTORY: Screening for osteoporosis. FINDINGS: Exam of the lumbar spine was not performed. Exam of the hips revealed a total mean bone mineral density of 0.943 g/cm2. Mean hip T score: -0.5 Mean hip age-matched Z score: 1.4 FRAX WHO Fracture Risk Assessment. Ten year probability of fracture (%). Major Osteoporotic Fracture 17.6% Hip Fracture 5.1%. IMPRESSION: Values presented indicate normal bone density of the hips.
== END 2017-08-28 10:53 | disposition home or self-care (01) ==
LOC: RAD 10:52
PROVIDERS: ATTEND Emergency Medicine
DX: M85.89 Other specified disorders of bone density and structure, multiple sites (principal)

== ENCOUNTER 2017-09-06 12:55 | Inpatient (IN) ==
--- NOTE | 2017-09-06 14:23 | DI ---
EXAM: CHEST FRONTAL VIEW HISTORY: Cough. COMPARISON: 08/24/2016 FINDINGS: Heart size remains within normal limits. There are scattered calcifications suggesting old granulomatous disease. Questionable subtle density in the left lingular region. Lungs are otherwis e unremarkable. No pleural fluid or vascular congestion. IMPRESSION: Questionable subtle density in the left lingular region which could indicate atelectasis or mild pneu monia.
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
[2017-09-06] MEDS ORDERED: ROCEPHIN 1 GM in SODIUM CHLORIDE 50 ML IV STA (14:30)
--- NOTE | 2017-09-06 14:31 | ED.PDOC ---
General ED Provider: Dr. MAIDA DAVILA Chief Complaint: Weakness Stated Complaint: weakness cough Time Seen by Physician: 13:00 Mode of Arrival: Walk-In Information Source: Patient Exam Limitations: No limitations [facility] Nursing and Triage Documentation Reviewed and Agree: Yes Reviewed sepsis parameters & appropriate labs ordered?: Yes (seen with nursing staff at all times ) System Inflammatory Response Syndrome: Not Applicable Sepsis Protocol: For patient's 13 years and over: Temp is 96.8 and below OR 101 and greater Pulse >90 BPM Resp >20/minute Acutely Altered Mental Status Are patient's symptoms suggestive of a new infection, such as: -Pneumonia -Skin, Soft Tissue -Endocarditis -UTI -Bone, Joint Infection -Implantable Device -Acute Abdominal Infection -Wound Infection -Meningitis -Blood Stream Catheter Infection -Unknown System Inflammatory Response Syndrome: Not Applicable Respiratory Complaint Exam - Respiratory Complaint/Exam Onset/Duration: today Symptoms Are: Resolved Timing: Intermittent Initial Severity: Mild Current Severity: None Location: Nose, Throat, Chest Character: Reports: Non-productive cough Aggravating: Reports: None Alleviating: Reports: Spontaneous resolution Associated Signs and Symptoms: Reports: URI, Nasal congestion. Denies: Rapid breathing, Dyspnea, Fever, Chills, Chest pain, Pleuritic chest pain, Wheezing, Hemoptysis, Dizziness, Calf pain, Calf swelling, Edema, Hoarseness, Sinus discomfort, Vomiting, Sore throat, Weight loss, Decreased oral intake, Increased thirst, Increased appetite, Increased urination Related History: Reports: Similar episode History of Healthcare-Acquired Pneumonia: No Related Surgical History: Reports: None Pulmonary Embolism Risk Factors: None Pseudomonas Risk Factors: Reports: None Tuberculosis Risk Factors: Reports: None Status Asthmaticus Risk Factors: Reports: None Home Oxygen Use: No Recent Stress Test: No Recent Echo/LV Function: No Current Antibiotic Use: No Current Asthma Medication Use: No Respiratory Distress: None Inadequate Respiratory Effort: No Dysphagia Present: No Stridor Present: No JVD Present: No Accessory Muscle Use: No Retractions: Not Present Diminished Breath Sounds: No Sinus Tenderness: None Grunting Respirations: No Kussmaul Respirations: No Differential Diagnoses: Asthma, COPD Exacerbation, Pneumonia, Bronchitis, URI, Influenza, Lower Resp. Infection Quality Indicators For Pneumonia: Antibiotics in 6hr-admit, SpO2 assessed, Empiric Antibiotic Rx, Vital signs, Mental status assessed Non-Traumatic Chest Pain Syncope: EKG Performed Review of Systems - Review Of Systems Constitutional: Reports: Chills, Malaise, Weakness Eyes: Reports: No symptoms Ears, Nose, Mouth, Throat: Reports: No symptoms Respiratory: Reports: Cough Cardiac: Reports: No symptoms GI: Reports: No symptoms : Reports: No symptoms Musculoskeletal: Reports: No symptoms Skin: Reports: No symptoms Neurological: Reports: No symptoms Endocrine: Reports: No symptoms Hematologic/Lymphatic: Reports: No symptoms All Other Systems: Reviewed and Negative Past Medical History - Past Medical History Previously Healthy: Yes Endocrine: Reports: None Cardiovascular: Reports: None Respiratory: Reports: None Hematological: Reports: None Gastrointestinal: Reports: None Genitourinary: Reports: None Neuro/Psych: Reports: Migraine, Anxiety, Depression, Other (TIA/CVA affecting RLE) Musculoskeletal: Reports: Arthritis (chronic neck pain ), Back Pain Cancer: Reports: None Last Menstrual Period: HYSTERECTOMY - Surgical History General Surgical History: Reports: Hysterectomy (1964), Appendectomy, Cholecystectomy, Tonsillectomy, Back Surgery - Family History Family History: Reports: None - Social History Smoking Status: Former smoker Hx Substance Use: Yes (marijuana) Alcohol Screening: None - Immunizations Tetanus Shot up to Date: Yes Physical Exam - Physical Exam Appearance: Ill-appearing Ill-appearing: Mild Pain Distress: Mild Eyes: JAVIER, EOMI, Conjunctiva clear ENT: Ears normal, Nose normal, Oropharynx normal Respiratory: Rhonchi (left lung) Cardiovascular: RRR, Pulses normal, No rub, No murmur GI/: Soft, Nontender, No masses, Bowel sounds normal, No Organomegaly Musculoskeletal: Normal strength, ROM intact, No edema, No calf tenderness Skin: Warm, Dry, Normal color Neurological: Sensation intact, Motor intact, Reflexes intact, Cranial nerves intact, Alert, Oriented Psychiatric: Affect appropriate, Mood appropriate Interpretation - Radiology Interpretation Radiology Results: Positive (pneumonia) Re-Evaluation - Re-Evaluation Time of Re-Evaluation: 14:00 Status: Improved Vital Signs Stable: Yes Pain Level: 0 Appearance: NAD Lungs: Clear Skin: Warm and Dry Neuro: Alert and Oriented X3 CV: RRR Additional Comments: no resp distress - Re-Evaluation Time of Re-Evaluation: 14:36 Status: Unchanged Vital Signs Stable: Yes Pain Level: 0 Appearance: NAD Skin: Warm and Dry Neuro: Alert and Oriented X3 CV: RRR Physician Notification - Case Discussed Physician Notified: pmd Time of Notification: 14:34 Admit To: Inpatient Critical Care Note - Critical Care Note Total Time (mins): 0 Course - Course Hematology/Chemistry: 09/06/17 13:35 09/06/17 13:35 Orders, Labs, Meds: Lab Review 09/06/17 09/06/17 09/06/17 13:35 13:35 13:35 WBC 9.26 RBC 4.24 Hgb 13.7 Hct 39.8 MCV 93.9 MCH 32.3 H MCHC 34.4 RDW Coeff of Ella 13.2 Plt Count 315 Immature Gran % (Auto) 0.2 Neut % (Auto) 63.5 Lymph % (Auto) 24.3 Hodgeman % (Auto) 7.2 Eos % (Auto) 4.0 Baso % (Auto) 0.8 Immature Gran # (Auto) 0.0 Neut # (Auto) 5.9 Lymph # (Auto) 2.3 Hodgeman # (Auto) 0.7 Eos # (Auto) 0.4 Baso # (Auto) 0.1 Sodium 141 Potassium 3.6 Chloride 101 Carbon Dioxide 28 Anion Gap 15.6 BUN 11 Creatinine 0.79 Estimated GFR (MDRD) 71.00 BUN/Creatinine Ratio 13.92 Glucose 115 Calcium 9.4 Total Bilirubin 0.6 AST 20 ALT 41 Alkaline Phosphatase 106 Total Creatine Kinase 21 Troponin I < 0.0100 Total Protein 7.2 Albumin 3.6 Globulin 3.6 Albumin/Globulin Ratio 1.00 Procalcitonin < 0.05 Orders Category Date Time Status EKG-(ED ONLY) Stat CARDIO 09/06/17 13:15 Completed BLOOD CULTURE Stat LAB 09/06/17 13:35 Received CBC W/ AUTO DIFF Stat LAB 09/06/17 13:35 Completed COMPREHENSIVE METABOLIC PANEL Stat LAB 09/06/17 13:35 Completed CREATINE KINASE Stat LAB 09/06/17 13:35 Completed PROCALCITONIN Stat LAB 09/06/17 13:35 Completed TROPONIN I Stat LAB 09/06/17 13:35 Completed CHEST, 1V AP ONLY Stat RADS 09/06/17 13:[address] HEAD W/O CONTRAST Stat RADS 09/06/17 13:15 Completed Vital Signs: Temp Pulse Resp BP Pulse Ox 09/06/17 12:57 98.2 F 91 H 18 166/100 H 100 Departure - Departure Time of Disposition: 14:36 Disposition: ADMITTED INPATIENT Discharge Problem: Pneumonia Qualifiers: Pneumonia type: due to unspecified organism Laterality: left Instructions: Pneumonitis (ED) Condition: Good Pt referred to PMD for follow-up: Yes (admitt) IPMP verified?: No Additional Instructions: Please call your Family Physician as soon as possible to schedule a follow-up appointment. Allergies/Adverse Reactions: Allergies amoxicillin Adverse Reaction (Verified 09/06/17 13:23) Rash codeine Adverse Reaction (Verified 09/06/17 13:23) gets gas Home Medications: Ambulatory Orders Calcium Carb/Vitamin D3/Vit K1 [Calcium + D Soft Chewable Tab] 1 each PO BID 02/22 Calcium Polycarbophil [Fiber Tabs] 500 mg PO TID 06/15/17 Multivitamin [Multi-Day Vitamins] 1 each PO DAILY 06/15/17 Omeprazole Magnesium [Prilosec Otc] 20 mg PO DAILY 06/15/17 Citalopram Hydrobromide [Celexa] 20 mg PO DAILY #30 tablet 07/13/17 Clopidogrel Bisulfate [Plavix] 75 mg PO DAILY #30 tablet 07/13/17 Lisinopril [Zestril] 40 mg PO DAILY #30 tablet 07/13/17 Disposition Discussed With: Patient
[2017-09-06] MEDS ORDERED: ROCEPHIN ONE (14:39)
[2017-09-06] MEDS ORDERED: HYDROCODONE PO PRN (15:26)
[2017-09-06] MEDS ORDERED: ACETAMINOPHEN PO PRN (15:26)
[2017-09-06] MEDS ORDERED: NON-FORMULARY MEDICATION (Calcium Carb/Vitamin D3/Vit K1 [Calcium + D Soft Chewable Tab] 1 PO SCH (15:30)
[2017-09-06 15:43] VITALS: BMI 21.7
[2017-09-06] MEDS ORDERED: NORCO 5-325 PO PRN (15:43)
[2017-09-06] MEDS: SODIUM CHLORIDE 1,000 ML IV SCH (17:01)
[2017-09-06] MEDS: CELEXA PO SCH (17:01)
[2017-09-06] MEDS: NORCO 5-325 PO PRN (20:48)
[2017-09-06] MEDS: CALCIUM 500 + VIT D 200 MG TABLET PO SCH (20:48)
[2017-09-06] MEDS: FLEXERIL PO SCH (20:48)
[2017-09-06] MEDS: CALCIUM POLYCARBOPHIL 500 MG PO SCH (20:49)
[2017-09-06] MEDS: DUONEB NEB SCH (23:55)
[2017-09-07] MEDS: DUONEB NEB SCH ×3 (04:36→23:00)
[2017-09-07] MEDS: PRILOSEC PO SCH (05:55)
[2017-09-07] MEDS: CALCIUM 500 + VIT D 200 MG TABLET PO SCH ×2 (08:40→22:07)
[2017-09-07] MEDS: FLEXERIL PO SCH ×2 (08:41→22:07)
[2017-09-07] MEDS: PLAVIX PO SCH (08:41)
[2017-09-07] MEDS: MULTIVITAMIN TABLET PO SCH (08:41)
[2017-09-07] MEDS: CELEXA PO SCH (08:41)
[2017-09-07] MEDS: CALCIUM POLYCARBOPHIL 500 MG PO SCH ×3 (08:43→22:08)
[2017-09-07] MEDS ORDERED: ZESTRIL PO SCH (09:00)
[2017-09-07] MEDS ORDERED: NON-FORMULARY MEDICATION (Omeprazole Magnesium [Prilosec Otc] 20 MG) PO SCH (09:00)
--- NOTE | 2017-09-07 13:53 | HP ---
DATE OF SERVICE: 09/06/17 CHIEF COMPLAINT: Weakness and coughing. HISTORY OF PRESENT ILLNESS: 77-year-old female with history of COPD and recent stroke, came to the emergency room with weakness, imbalance, frequent falls, not herself, cough, and congestion. Family brought the patient here to the emergency room for evaluation. She was seen by Dr. Castro. BP 167/100. CT head negative. Chest x- ray showed left basilar pneumonia. At that time the patient was admitted to the hospital for IV antibiotics, breathing treatments and rehydration. REVIEW OF SYSTEMS: CONSTITUTIONAL: Weakness, tiredness. No fever, no chills. HEENT: Normal. ENDOCRINE: No weight gain; no weight loss. CVS: No chest pain. No PND, no orthopnea. No shortness of breath. No PND, no orthopnea. RESPIRATORY: Cough and congestion. No hemoptysis. GI: No nausea, no vomiting. No abdominal pain. No melena. : No hematuria. No polyuria. MUSCULOSKELETAL: No joint swelling. PSYCHIATRIC: Not anxious. No depression. No suicidal thoughts. No homicidal thoughts. SKIN: Intact, no open lesions. PAST MEDICAL HISTORY: History of CVA TIA Dysphagia Rheumatoid arthritis COPD Osteoporosis Depression Substance use disorder DJD spine PAST SURGICAL HISTORY: Hysterectomy Brain surgery Bilateral cataract surgery PERSONAL HISTORY: The patient does smoke, uses marijuana sometimes. . FAMILY HISTORY: Colon cancer. MEDICATIONS: (HOME) Fiber Calcium Multivitamins Prilosec Plavix Zestril Celexa Cyclobenzeprine Hydrocodone ALLERGIES: AMOXICILLIN AND CODEINE PHYSICAL EXAMINATION: V/S: BP 166/100, respiratory rate 18, heart rate 91, temperature 98.2, saturation 92 on room air. HEENT: Atraumatic, normocephalic. No scleral icterus. Pallor positive. Mucosa dry. NECK: Supple. No JVD, no bruit. No lymphadenopathy. No thyromegaly. HEART: S1, S2 normal. No murmur. No cyanosis or clubbing. No ascites. LUNGS: Left basilar crackles. No rales or rhonchi. ABDOMEN: Soft, nontender. Bowel sounds are active. No CVA tenderness. No rigidity or guarding. EXTREMITIES: No pedal edema. No cyanosis or clubbing MUSCULOSKELETAL: Normal joints, no swelling. NEUROLOGIC: The patient is awake and alert. SKIN: Intact; no open lesions. LYMPHATIC: No lymph nodes palpable. LABS: WBC 9.26, RBC 4.24, hemoglobin 13.7, hematocrit 39.8, platelet count 315. Sodium 141, potassium 3.6, chloride 101, carbon dioxide 28, BUN 11, creatinine 0.79, glucose 115, calcium 9.4, AST 20, ALT 41, alkaline phosphatase 106. Procalctionin less than 0.05. Chest x-ray - questionable subtle density in the left lingular region which could indicate atelectasis or mild pneumonia. CT head - no acute intracranial abnormality or hemorrhage. Scattered microangiopathy and generalized volume loss. ASSESSMENT: 1. LEFT BASILAR PNEUMONIA 2. RECENT HISTORY OF STROKE 3. DJD SPINE 4. OSTEOARTHRITIS 5. OSTEOPOROSIS 6. DEPRESSION PLAN: 1. Admit patient to the regular floor. 2. CBC, CMP today and daily. 3. Cardiac enzymes and troponin. 4. Rocephin 1 gm daily. 5. Duonebs. 6. Daily I & O. 7. Continue home medications. 8. Out of bed to chair. 9. Iv fluids at 40 mL/hr. TIME SPENT: More than 75 minutes for admission. [facility]
[2017-09-07] MEDS: SODIUM CHLORIDE 1,000 ML IV SCH (17:20)
[2017-09-07] MEDS: ZESTRIL PO SCH (17:42)
[2017-09-07] MEDS: NORCO 5-325 PO PRN (22:16)
[2017-09-08] MEDS: ZESTRIL PO SCH ×2 (03:00→13:24)
[2017-09-08] MEDS: DUONEB NEB SCH ×3 (05:05→22:25)
[2017-09-08] MEDS: PRILOSEC PO SCH (06:24)
[2017-09-08] MEDS: CALCIUM 500 + VIT D 200 MG TABLET PO SCH ×2 (08:43→20:16)
[2017-09-08] MEDS: FLEXERIL PO SCH ×2 (08:44→20:16)
[2017-09-08] MEDS: CELEXA PO SCH (08:44)
[2017-09-08] MEDS: PLAVIX PO SCH (08:46)
[2017-09-08] MEDS: MULTIVITAMIN TABLET PO SCH (08:46)
[2017-09-08] MEDS: CALCIUM POLYCARBOPHIL 500 MG PO SCH ×3 (08:46→20:17)
[2017-09-08] MEDS: NORCO 5-325 PO PRN ×2 (08:48→20:16)
[2017-09-08] MEDS ORDERED: CARAFATE PO STA (15:31)
[2017-09-08] MEDS: PROTONIX PO SCH (18:05)
--- NOTE | 2017-09-08 19:22 | CT ---
Jg: CT of the chest without intravenous contrast. Comparison: CT thorax performed 04/04/2017. Reason for exam: Pneumonia. FINDINGS: Similar appearing subcutaneous fat adjacent to the left clavicle, not changed from the pre vious exam. No pneumothorax, pleural effusion, or focal consolidation. There is a similar appearing 5 mm nodule in the right lower lobe on axial image number 34. Image interpretation is limited by th e lack of intravenous contrast administration. The aorta is normal in course and caliber. The heart is not enlarged. There is mild atherosclerotic disease within the aorta and distal arterial vasculature including the coronary vessels. There is linear atelectasis/pleural thickening in the right lung base and linear atelectasis/pleural thickening in the lingula. Degenerative disease is seen in the cervical and thoracolumbar spine. Impression: 1. Linear atelectasis/pleural thickening in the right and left lung bases. No evidence of focal con solidation or pneumonia. 2. No pneumothorax or pleural effusion. 3. Similar appearing 5 mm nodule in the right lower lobe.
[2017-09-08] MEDS: SODIUM CHLORIDE 1,000 ML IV SCH (20:16)
[2017-09-09] MEDS: ZESTRIL PO SCH ×3 (01:07→21:17)
[2017-09-09] MEDS: DUONEB NEB SCH ×3 (04:53→21:57)
[2017-09-09] MEDS: PROTONIX PO SCH ×2 (05:34→17:22)
[2017-09-09] MEDS: NORCO 5-325 PO PRN ×2 (08:16→21:17)
[2017-09-09] MEDS: CELEXA PO SCH (08:16)
[2017-09-09] MEDS: FLEXERIL PO SCH ×2 (08:17→21:17)
[2017-09-09] MEDS: MULTIVITAMIN TABLET PO SCH (08:17)
[2017-09-09] MEDS: PLAVIX PO SCH (08:17)
[2017-09-09] MEDS: CALCIUM POLYCARBOPHIL 500 MG PO SCH ×3 (08:19→21:18)
[2017-09-09] MEDS: CALCIUM 500 + VIT D 200 MG TABLET PO SCH ×2 (08:19→21:17)
[2017-09-09] MEDS ORDERED: TORADOL IVP STA (15:49)
--- NOTE | 2017-09-09 16:24 | DI ---
EXAM: Right shoulder HISTORY: Pain. COMPARISON: Right shoulder x-ray 03/18/2015 FINDINGS: There is no displaced fracture or dislocation. There are surgical changes in the right hum eral head. There is degenerative change and minimal displacement at the acromioclavicular joint whic h is stable since 2014. IMPRESSION: 1. There is no acute compression fracture or subluxation. 2. Chronic stable osteoarthritic and postsurgical changes.
--- NOTE | 2017-09-09 16:27 | DI ---
EXAM: Three views of the right hand HISTORY: Right hand pain and edema. COMPARISON: Right wrist x-rays 06/20/2017 FINDINGS: There is narrowing of the radiocarpal joint and the first CMC joint. There is narrowing an d osteophyte formation in the DIP joints and PIP joints. Degenerative changes most severe at the sec ond digit PIP joint. There is no lytic or blastic lesion. The soft tissues are normal. IMPRESSION: 1. No acute abnormality or displaced fracture of the right hand. 2. Multi joint degenerative disease of the right hand most pronounced in the PIP joint of the second digit.
[2017-09-09] MEDS: SODIUM CHLORIDE 1,000 ML IV SCH (19:07)
[2017-09-10] MEDS: DUONEB NEB SCH ×3 (04:53→22:00)
[2017-09-10] MEDS: PROTONIX PO SCH ×2 (05:49→19:15)
[2017-09-10] MEDS ORDERED: DECADRON 4 MG/ML SDV IM STA (08:49)
[2017-09-10] MEDS: FLEXERIL PO SCH ×2 (09:00→20:34)
[2017-09-10] MEDS: ZESTRIL PO SCH ×2 (09:00→20:35)
[2017-09-10] MEDS: MULTIVITAMIN TABLET PO SCH (09:00)
[2017-09-10] MEDS: CALCIUM POLYCARBOPHIL 500 MG PO SCH ×3 (09:01→20:36)
[2017-09-10] MEDS: CELEXA PO SCH (09:01)
[2017-09-10] MEDS: CALCIUM 500 + VIT D 200 MG TABLET PO SCH ×2 (09:01→20:35)
[2017-09-10] MEDS: PLAVIX PO SCH (09:01)
[2017-09-10] MEDS: NORCO 5-325 PO PRN ×2 (09:06→22:19)
--- NOTE | 2017-09-10 13:43 | PN ---
DATE OF SERVICE: 09/09/17 SUBJECTIVE: The patient was admitted with left base pneumonia and weakness. The patient been having trouble at home and was not by herself, weak and tired. The patient' s family was worried and brought her for the stroke. CT of the head negative. Right now the more awake and alert and did not have any problems. Coughing some but no phlegm. CT chest done but I do not have it as of right now. REVIEW OF SYSTEMS: CONSTITUTIONAL: No fever, no chills. HEENT: Normal. ENDOCRINE: No weight gain, no weight loss. CVS: No angina symptoms. No CHF symptoms. No palpitations. No atypical chest pain for CAD. No shortness of breath. No PND, no orthopnea. RESPIRATORY: No cough, no hemoptysis. GI: No nausea, no vomiting. No abdominal pain. : No hematuria. No polyuria. MUSCULOSKELETAL: No joint swelling. PSYCHIATRIC: Not anxious. No depression. No suicidal thoughts. No homicidal thoughts. SKIN: Intact. No rash. PHYSICAL EXAMINATION: V/S: Blood pressure 138/74, respiratory rate 16, heart rate 84, temperature 98.3 and saturation 94% on the room air. HEENT: Normocephalic, atraumatic. Mucosa dry. NECK: Supple. No JVD, no carotid bruit. No lymphadenopathy. LUNGS: Decreased and left basilar crackles. Clear to auscultation. No rales or rhonchi. HEART: S1, S2 normal. No S3. No murmur, gallop or regurgitation. ABDOMEN: Soft, nontender. Bowel sounds active. No rigidity. No rebound or guarding. No CVA tenderness. EXTREMITIES: No pedal edema. No clubbing or cyanosis MUSCULOSKELETAL: No joint swelling. NEUROLOGIC: Awake, alert, oriented times three. No focal deficit. LYMPHATIC: No lymph nodes palpable. SKIN: Intact. LABS: WBC 8.09, hgb 11.13, hct 33.7, plt count 240, sodium 142, potassium 3.6, chloride 104, bicarb 28, BUN 9, creatinine 0.82 and glucose 150. ASSESSMENT: 1. Weakness which has improved 2. Left basilar pneumonia 3. Hypertension 4. Dyslipidemia 5. Noncompliance with medication 6. Recent history of CVA and TIA 7. Osteoporosis 8. Osteoarthritis 9. Recurrent falls PLAN: 1. Continue Rocephin 2. DUO NEBS 3. Out of bed to chair 4. IV fluids 5. If the patient is stable will be discharged in the morning. TIME SPENT: More than 35 minutes MTDD
--- NOTE | 2017-09-10 14:05 | PN ---
DATE OF SERVICE: 09/07/17 SUBJECTIVE: The patient was admitted with weakness, cough and congestion. Chest x-ray showed the left basilar infiltrate. REVIEW OF SYSTEMS: CONSTITUTIONAL: No fever, no chills. Weakness is still present, not getting out of the bed and walking much. HEENT: Normal. ENDOCRINE: No weight gain, no weight loss. CVS: No angina symptoms. No CHF symptoms. No palpitations. No atypical chest pain for CAD. No shortness of breath. No PND, no orthopnea. RESPIRATORY: Some cough, no hemoptysis. GI: No nausea, no vomiting. No abdominal pain. : No hematuria. No polyuria. MUSCULOSKELETAL: No joint swelling. PSYCHIATRIC: Not anxious. No depression. No suicidal thoughts. No homicidal thoughts. SKIN: Intact. No rash. PHYSICAL EXAMINATION: V/S: Blood pressure 163/73, respiratory rate 16, heart rate 70 and temperature 98.4 with saturation 98. GENERAL: Sick looking woman laying in a bed. HEENT: Normocephalic, atraumatic. Mucosa dry. Pallor positive. No icterus. NECK: Supple. No JVD, no carotid bruit. No lymphadenopathy. LUNGS: Some basilar crackles and no wheezing. Clear to auscultation. No rales or rhonchi. HEART: S1, S2 normal. No S3. No murmur, gallop or regurgitation. ABDOMEN: Soft, nontender. Bowel sounds active. No rigidity. No rebound or guarding. No CVA tenderness. EXTREMITIES: No pedal edema. No clubbing or cyanosis MUSCULOSKELETAL: No joint swelling. NEUROLOGIC: Awake, alert, oriented times three. No focal deficit. LYMPHATIC: No lymph nodes palpable. SKIN: Intact. Dry. LABS: Sodium 140, potassium 3.5, chloride 103, bicarb 24, BUN 14, creatinine 0.85, WBC 9.3, hgb 12.4, hct 36.8, plt count 252. ASSESSMENT: 1. Dehydration 2. Left basilar pneumonia 3. Recent history of stroke 4. History of TIA 5. Osteoporosis 6. Depression 7. Anxiety 8. GERD PLAN: 1. Continue Rocephin 2. DUO NEBS 3. IV fluids 4. Out of bed to chair activity as tolerated TIME SPENT: More than 35 minutes MTDD
--- NOTE | 2017-09-10 14:42 | PN ---
DATE OF SERVICE: 09/08/17 SUBJECTIVE: The patient is sitting in the bed and not in any distress. She was having some epigastric pain and pain was radiating to the back, sharp shooting pain. REVIEW OF SYSTEMS: CONSTITUTIONAL: No fever, no chills. HEENT: Normal. ENDOCRINE: No weight gain, no weight loss. CVS: No angina symptoms. No CHF symptoms. No palpitations. No atypical chest pain for CAD. No shortness of breath. No PND, no orthopnea. RESPIRATORY: Cough, no hemoptysis. GI: No nausea, no vomiting. No abdominal pain. : No hematuria. No polyuria. MUSCULOSKELETAL: No joint swelling. PSYCHIATRIC: Not anxious. No depression. No suicidal thoughts. No homicidal thoughts. SKIN: Intact. No rash. PHYSICAL EXAMINATION: V/S: Blood pressure 146/87, respiratory rate 20, heart rate 97, temperature 97.9 and saturation 97% on 2 liters. HEENT: Normocephalic, atraumatic. Mucosa dry. Pallor positive. No icterus. NECK: Supple. No JVD, no carotid bruit. No lymphadenopathy. LUNGS: Decreased with some faint crackles on the right lower lobe. Clear to auscultation. No rales or rhonchi. HEART: S1, S2 normal. No S3. No murmur, gallop or regurgitation. ABDOMEN: Soft, Epigastric tenderness is presents. Bowel sounds active. No rigidity. No rebound or guarding. No CVA tenderness. EXTREMITIES: No pedal edema. No clubbing or cyanosis MUSCULOSKELETAL: No joint swelling. NEUROLOGIC: Awake, alert, oriented times three. No focal deficit. LYMPHATIC: No lymph nodes palpable. SKIN: Intact. LABS: WBC 8.09, hgb 11.3, hct 33.7, plt count 240, sodium 142, potassium 3.6, chloride 104, bicarb 28, BUN 9, creatinine 0.82 and glucose 115. ASSESSMENT: 1. Pneumonia left lower lobe 2. Weakness and tiredness from dehydration 3. Upper respiratory infection 4. Epigastric pain most likely peptic ulcer disease 5. Recent TIA and CVA with right foot drop 6. Depression 7. Osteoarthritis 8. Osteoporosis PLAN: 1. Continue the breathing treatments and DUO NEBS 2. Will start the patient on Protonix and Carafate 3. Stop the Prilosec 4. Daily I&O's TIME SPENT: More than 35 minutes KIANA
[2017-09-10] MEDS: SODIUM CHLORIDE 1,000 ML IV SCH (20:10)
[2017-09-11] MEDS: DUONEB NEB SCH ×2 (05:24→14:05)
[2017-09-11] MEDS: PROTONIX PO SCH (05:44)
[2017-09-11] MEDS ORDERED: K-DUR PO STA (06:48)
[2017-09-11] MEDS ORDERED: PREDNISONE PO SCH (08:00)
[2017-09-11] MEDS: FLEXERIL PO SCH (09:11)
[2017-09-11] MEDS: MULTIVITAMIN TABLET PO SCH (09:11)
[2017-09-11] MEDS: CALCIUM 500 + VIT D 200 MG TABLET PO SCH (09:12)
[2017-09-11] MEDS: CELEXA PO SCH (09:13)
[2017-09-11] MEDS: PLAVIX PO SCH (09:13)
[2017-09-11] MEDS: ZESTRIL PO SCH (09:13)
[2017-09-11] MEDS: CALCIUM POLYCARBOPHIL 500 MG PO SCH (09:14)
[2017-09-11 10:52] VITALS: BP 147/81; TEMP 98.8
--- NOTE | 2017-09-11 13:45 | PN ---
DATE OF SERVICE: 09/11/17 SUBJECTIVE: The patient's right wrist pain has improved with Decadron. Up and about eating good. REVIEW OF SYSTEMS: CONSTITUTIONAL: No fever, no chills. HEENT: Normal. ENDOCRINE: No weight gain, no weight loss. CVS: No angina symptoms. No CHF symptoms. No palpitations. No atypical chest pain for CAD. No shortness of breath. No PND, no orthopnea. RESPIRATORY: Some cough, no hemoptysis. GI: No nausea, no vomiting. No abdominal pain. : No hematuria. No polyuria. MUSCULOSKELETAL: No joint swelling. PSYCHIATRIC: Not anxious. No depression. No suicidal thoughts. No homicidal thoughts. SKIN: Intact. No rash. PHYSICAL EXAMINATION: V/S: Blood pressure 164/88, respiratory rate 18, heart rate 97, temperature 96.8 and saturation 96%. HEENT: Normocephalic, atraumatic. Mucosa dry. Pallor positive. No icterus. NECK: Supple. No JVD, no carotid bruit. No lymphadenopathy. LUNGS: Clear to auscultation. No rales or rhonchi. HEART: S1, S2 normal. No S3. No murmur, gallop or regurgitation. ABDOMEN: Soft, nontender. Bowel sounds active. No rigidity. No rebound or guarding. No CVA tenderness. EXTREMITIES: No pedal edema. No clubbing or cyanosis. Right wrist, no swelling and no pain right now. MUSCULOSKELETAL: No joint swelling. NEUROLOGIC: Awake, alert, oriented times three. No focal deficit. LYMPHATIC: No lymph nodes palpable. SKIN: Intact. Dry. LABS: WBC 6.10, hgb 11.1, hct 33.3, plt count 224, sodium 141, potassium 3.2, chloride 104, bicarb 27, BUN 9, creatinine 0.85, glucose 165. ASSESSMENT: 1. Hypokalemia which has been replaced 2. Pneumonia community acquired 3. Weakness from dehydration 4. History of hypertension 5. Dyslipidemia 6. Osteoarthritis 7. DJD spine 8. Osteoporosis PLAN: 1. Out of bed to chair activity as tolerated 2. Continue Rocephin, DUO NEBS 3. Daily I&O's TIME SPENT: More than 35 minutes MTDD
--- NOTE | 2017-09-11 13:54 | PN ---
DATE OF SERVICE: 09/10/17 SUBJECTIVE: The patient was admitted with community acquired pneumonia and weakness. The patient is feeling better and up and about walking. Hgb has dropped from 13.7 to 11.1. Most likely hemodilution and dehydration. Potassium is 3.2 today morning. REVIEW OF SYSTEMS: CONSTITUTIONAL: No fever, no chills. HEENT: Normal. ENDOCRINE: No weight gain, no weight loss. CVS: No angina symptoms. No CHF symptoms. No palpitations. No atypical chest pain for CAD. No shortness of breath. No PND, no orthopnea. RESPIRATORY: No cough, no hemoptysis. GI: No nausea, no vomiting. No abdominal pain. : No hematuria. No polyuria. MUSCULOSKELETAL: No joint swelling. PSYCHIATRIC: Not anxious. No depression. No suicidal thoughts. No homicidal thoughts. SKIN: Intact. No rash. PHYSICAL EXAMINATION: V/S: 144/79, respiratory rate 18, heart rate 87, temperature 98.1, saturation 93. HEENT: Normocephalic, atraumatic. Mucosa dry. Pallor positive. No icterus. NECK: Supple. No JVD, no carotid bruit. No lymphadenopathy. LUNGS: Clear to auscultation. No rales or rhonchi. HEART: S1, S2 normal. No S3. No murmur, gallop or regurgitation. ABDOMEN: Soft, nontender. Bowel sounds active. No rigidity. No rebound or guarding. No CVA tenderness. EXTREMITIES: No pedal edema. No clubbing or cyanosis MUSCULOSKELETAL: No joint swelling. NEUROLOGIC: Awake, alert, oriented times three. No focal deficit. LYMPHATIC: No lymph nodes palpable. SKIN: Intact. LABS: Sodium 141, potassium 3.2, chloride 104, bicarb 27, BUN 9, creatinine 0.85,WBC 6.10, hgb 11.1, hct 33.3, plt count 224. ASSESSMENT: 1. Pneumonia 2. Weakness 3. Hypokalemia 4. Anemia 5. Osteoarthritis 6. Osteoporosis 7. Recent TIA and CVA 8. Depression 9. Anxiety PLAN: 1. Replace the Potassium 2. Continue the Keflex and breathing treatments 3. Daily I&O's 4. Out of bed to chair activity as tolerated. TIME SPENT: More than 35 minutes MTDD
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
== END 2017-09-11 14:45 | disposition home health service (06) | DRG 194 ==
LOC: ED 12:55 → SCU 14:43
PROVIDERS: ADMIT Emergency Medicine; ATTEND Emergency Medicine
DX: J18.9 Pneumonia, unspecified organism (principal); J98.11 Atelectasis; R53.1 Weakness; R26.89 Other abnormalities of gait and mobility; R91.1 Solitary pulmonary nodule; I10 Essential (primary) hypertension; E78.5 Hyperlipidemia, unspecified; F41.8 Other specified anxiety disorders; M19.031 Primary osteoarthritis, right wrist; G43.909 Migraine, unspecified, not intractable, without status migrainosus; K21.9 Gastro-esophageal reflux disease without esophagitis; M54.9 Dorsalgia, unspecified; G89.29 Other chronic pain; M81.0 Age-related osteoporosis without current pathological fracture; R29.6 Repeated falls; I69.398 Other sequelae of cerebral infarction; E87.6 Hypokalemia; D64.9 Anemia, unspecified; Z79.02 Long term (current) use of antithrombotics/antiplatelets; Z79.899 Other long term (current) drug therapy
CPT/HCPCS: 36415; 80053; 82550; 84145; 84484; 85025; 87040; 93005; 93010; 94640; 96365; 99285

== ENCOUNTER 2017-10-10 10:28 | Outpatient (CLI) | payer OTHER ==
--- NOTE | 2017-10-10 11:34 | MAMMO ---
EXAM: Digital screening mammogram with tomosynthesis HISTORY: Screening COMPARISON: 04/11/2016 FINDINGS: Digital MLO and CC views of the right and left breast were performed. Tomosynthesis was p erformed. Computer aided detection utilized. There are scattered fibroglandular densities. There ar e benign bilateral calcifications. There is no evidence for mass, asymmetry, distortion, or suspicio us calcifications in either breast. IMPRESSION: 1. No evidence of malignancy in the right or left breast. 2. Annual screening mammogram is recommended in one year. BIRADS category 2, benign
== END 2017-10-10 10:29 | disposition home or self-care (01) ==
LOC: RAD 10:28
PROVIDERS: ATTEND Emergency Medicine
DX: Z12.31 Encounter for screening mammogram for malignant neoplasm of breast (principal)
CPT/HCPCS: 77067

== ENCOUNTER 2017-10-23 13:22 | Outpatient (CLI) | payer OTHER | END 2017-10-23 13:23 | disposition home or self-care (01) | LOC: LAB 13:22 | PROVIDERS: ATTEND Emergency Medicine | DX: E87.6 Hypokalemia (principal) | CPT/HCPCS: 36415; 80053 ==

== ENCOUNTER 2018-02-04 10:00 | Outpatient (RCR) | END 2018-02-05 23:59 | LOC: NEWBEG 10:00 | PROVIDERS: ATTEND Psychiatry & Neurology Psychiatry | DX: F33.2 Major depressive disorder, recurrent severe without psychotic features (principal); F43.10 Post-traumatic stress disorder, unspecified | CPT/HCPCS: 90792; 90853; 99214 ==

== ENCOUNTER 2018-02-06 13:25 | Outpatient (CLI) ==
[2017-10-10 10:34] VITALS: BMI 21.7
== END 2018-02-06 13:26 | disposition home or self-care (01) ==
LOC: LAB 13:25
PROVIDERS: ATTEND Emergency Medicine
DX: F33.1 Major depressive disorder, recurrent, moderate (principal); E78.5 Hyperlipidemia, unspecified; G62.9 Polyneuropathy, unspecified; K21.9 Gastro-esophageal reflux disease without esophagitis; M47.26 Other spondylosis with radiculopathy, lumbar region
CPT/HCPCS: 36415; 80053; 80061; 84443; 85025

== ENCOUNTER 2018-03-08 10:00 | Outpatient (RCR) ==
[2017-10-10 10:34] VITALS: BMI 21.7
== END 2018-03-08 23:59 ==
LOC: NEWBEG 10:00
PROVIDERS: ATTEND Psychiatry & Neurology Psychiatry
DX: F33.2 Major depressive disorder, recurrent severe without psychotic features (principal); F43.10 Post-traumatic stress disorder, unspecified; E78.5 Hyperlipidemia, unspecified; G62.9 Polyneuropathy, unspecified; K21.9 Gastro-esophageal reflux disease without esophagitis; M47.26 Other spondylosis with radiculopathy, lumbar region
CPT/HCPCS: 36415; 80053; 80061; 84443; 85025; 90853; 99214

== ENCOUNTER 2018-03-29 10:36 | Emergency (ER) | payer OTHER ==
[2018-03-29 10:37] VITALS: BMI 21.7
[2018-03-29 10:47] VITALS: BP 146/81; TEMP 97.4
--- NOTE | 2018-03-29 11:36 | DI ---
EXAM: Radiographs, left hand HISTORY: Initial presentation for left hand injury. COMPARISON: Left wrist radiograph 06/20/2017. TECHNIQUE: Three views. FINDINGS: Bones are demineralized. Severe arthritic changes of the left hand due to osteoarthritis or erosive osteoarthritis appears stable. Scapho-lunate interval widening with proximal migration of the capitate again noted. No acute fracture or dislocation identified. No localized soft tissue ab normality is seen. IMPRESSION: 1. No acute fracture or dislocation. 2. Stable severe arthritic changes and chronic scapho-lunate ligament tear.
--- NOTE | 2018-03-29 11:36 | DI ---
EXAM: Three views of the left wrist. History: Left wrist trauma. Findings: Osteopenia. Moderate to severe narrowing of the radiocarpal joint. Severe narrowing of t he first carpal metacarpal joint. 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 There is widening of the scapholunate in terval which is most likely degenerative. Impression: No acute osseous abnormality. Other findings as detailed above
--- NOTE | 2018-03-29 11:45 | CT ---
EXAM: CT head without contrast. HISTORY: Initial presentation for head trauma due to a fall. COMPARISON: 09/06/2017, 07/26/2017, 12/25/2013. TECHNIQUE: Multiple axial images of the brain were obtained from the skull base through the vertex w ithout intravenous contrast. Multiplanar reformats were provided. FINDINGS: There is no intracranial hemorrhage or extraaxial collection. The hansno-white differentiat ion is maintained without evidence for acute large vascular territory infarction. There are areas of periventricular and subcortical white matter low attenuation. The cortical sulci and cerebral ventr icles are symmetrically enlarged. The basal cisterns are well visualized. There is no hydrocephalus , mass effect, or midline shift. The paranasal sinuses and mastoid air cells are clear. The calvari um is intact. Since the prior study, there has been no significant interval change. IMPRESSION: 1. No acute intracranial abnormality. 2. Chronic small vessel ischemic changes and atrophy.
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
--- NOTE | 2018-03-29 12:03 | CT ---
EXAM: CT cervical spine without contrast HISTORY: Fall COMPARISON: 01/05/2017 TECHNIQUE: CT cervical spine performed without intravenous contrast. Coronal and sagittal reformatt ed images obtained. FINDINGS: Reversal of the normal cervical lordosis. Vertebral bodies normal height. Minimally disp laced fracture posterior aspect of the spinous processes C6 on image 46 sagittal, new from prior exam ination. Multilevel intervertebral disc space narrowing that is severe from C4-C5 through C6-C7. Mul tilevel facet and uncovertebral hypertrophy. Multilevel marginal osteophyte formation. 2 mm anterol isthesis of C2 on C3 and 3 mm anterolisthesis of C3 on C4. Degenerative changes cause mild to modera te multilevel central canal narrowing and varying degrees of bilateral neural foraminal narrowing radha t is severe bilaterally at C4-C5 at C5-C6. Prevertebral soft tissues appear normal. There are metal lic shrapnel densities in the left mandibular and base of tongue region, unchanged. IMPRESSION: 1. Minimally displaced fracture posterior aspect of the spinous processes C6, new from prior examin ation. 2. Chronic discogenic degenerative disease and facet arthrosis. 3. Reversal of the normal cervical lordosis. Finding #[address] Castro 11:57 a.m. 03/29/2018
--- NOTE | 2018-03-29 13:08 | ED.PDOC ---
General ED Provider: Dr. MAIDA DAVILA Chief Complaint: Fall Stated Complaint: MULTIPLE FALLS C/O HAND /WRIST, NECK PAIN Time Seen by Physician: 10:39 (SEEN WITH ENTIRE FAMILY NAD PT'S NURSE ) Information Source: Patient, Family Exam Limitations: No limitations Primary Care Provider: ZULLY MORRISON-[facility] Nursing and Triage Documentation Reviewed and Agree: Yes Does patient meet sepsis criteria?: No If yes, has appropriate treatment been initiated?: No System Inflammatory Response Syndrome: Not Applicable Sepsis Protocol: For patient's 13 years and over: Temp is 96.8 and below OR 101 and greater Pulse >90 BPM Resp >20/minute Acutely Altered Mental Status Are patient's symptoms suggestive of a new infection, such as: -Pneumonia -Skin, Soft Tissue -Endocarditis -UTI -Bone, Joint Infection -Implantable Device -Acute Abdominal Infection -Wound Infection -Meningitis -Blood Stream Catheter Infection -Unknown Trauma/Injury Complaint Exam - Trauma Complaint/Exam Location of Pain or Injury: Reports: Head, Neck, LUE, Chest Mechanism of Injury: Reports: Fall Onset/Duration: 1 WEEK FREQUENT FALLS PT HAS HAD PREVOIS CVA AND WALKS UNEVENLY AT ALL TIME Symptoms Are: Still present (WALKING ISSUE NO OBVIOUS INJURY NOTED ON ARRIVAL) Initial Severity: Mild Current Severity: Mild (LEFT HAND , WRIST) Aggravating: Reports: None Associated Signs and Symptoms: Denies: LOC, Confusion, Memory loss, Lethargy, Vomiting, Bleeding, Bruising, Swelling, Extremity disuse, Painful respiration, Hoarseness, Dysphagia, Hemoptysis, Significant blood loss Nexus Low Risk Criteria: No post-midline CS tender, No evidence of intoxicat., No Altered LOC, No focal neuro deficit, No distracting injuries Glascow Coma Scale (see protocol): 15 Trauma Findings: Absent: [place] eyes, Hemotympanum, Nasal deformity, Dental tenderness, Dental injury, Dental malocclusion, Neck tenderness, Neck spasm, SubQ Air, Crepitus, Airway obstructed, Trachea displaced, Labored respirations, Decreased breath sounds, Muffled heart sounds, Weak pulses, Absent pulses, Abdominal distention, Pelvic tenderness, Pelvic instability Review of Systems - Review Of Systems Constitutional: Reports: No symptoms Eyes: Reports: No symptoms Ears, Nose, Mouth, Throat: Reports: No symptoms Respiratory: Reports: No symptoms Cardiac: Reports: No symptoms GI: Reports: No symptoms : Reports: No symptoms Musculoskeletal: Reports: Joint pain (LEFT HAND/WRIST), Neck pain Skin: Reports: No symptoms Neurological: Reports: No symptoms Endocrine: Reports: No symptoms Hematologic/Lymphatic: Reports: No symptoms All Other Systems: Reviewed and Negative Past Medical History - Past Medical History Previously Healthy: Yes Endocrine: Reports: None Cardiovascular: Reports: None Respiratory: Reports: None Hematological: Reports: None Gastrointestinal: Reports: None Genitourinary: Reports: None Neuro/Psych: Reports: Migraine, Anxiety, Depression, Other (TIA/CVA affecting RLE) Musculoskeletal: Reports: Arthritis (chronic neck pain ), Back Pain Cancer: Reports: None Last Menstrual Period: unknown - Surgical History General Surgical History: Reports: Hysterectomy (1964), Appendectomy, Cholecystectomy, Tonsillectomy, Back Surgery - Family History Family History: Reports: None - Social History Smoking Status: Former smoker Hx Substance Use: No (marijuana use in past) Alcohol Screening: None Physical Exam - Physical Exam Appearance: Well-appearing, No pain distress, Well-nourished Eyes: JAVIER, EOMI, Conjunctiva clear ENT: Ears normal, Nose normal, Oropharynx normal Respiratory: Airway patent, Breath sounds clear, Breath sounds equal, Respirations nonlabored Cardiovascular: RRR, Pulses normal, No rub, No murmur GI/: Soft, Nontender, No masses, Bowel sounds normal, No Organomegaly Musculoskeletal: Normal strength, ROM intact, No edema, No calf tenderness Skin: Warm, Dry, Normal color Neurological: Sensation intact, Motor intact, Reflexes intact, Cranial nerves intact, Alert, Oriented Psychiatric: Affect appropriate, Mood appropriate Interpretation - Radiology Interpretation Radiology Interpretation By: Radiologist Radiology Results: No acute changes (EXCEPT C6 SPINOUS PROCESS FX) Physician Notification - Case Discussed Physician Notified: DAISY PENNINGTON (NEUROSURGERY) Time of Notification: 13:19 (WILL SEE PT IN OFFICE PT MUST MAKE CONTACT WITH HIS OFFICE ) Critical Care Note - Critical Care Note Total Time (mins): 0 Course - Course Hematology/Chemistry: 03/29/18 11:35 03/29/18 11:35 Orders, Labs, Meds: Lab Review 03/29/18 03/29/18 03/29/18 11:35 11:35 11:35 WBC 7.80 RBC 4.13 L Hgb 13.2 Hct 39.1 MCV 94.7 MCH 32.0 H MCHC 33.8 RDW Coeff of Ella 12.1 Plt Count 317 Immature Gran % (Auto) 0.3 Neut % (Auto) 45.5 Lymph % (Auto) 38.6 Powell % (Auto) 6.8 Eos % (Auto) 7.8 H Baso % (Auto) 1.0 Immature Gran # (Auto) 0.0 Neut # (Auto) 3.6 Lymph # (Auto) 3.0 Powell # (Auto) 0.5 Eos # (Auto) 0.6 Baso # (Auto) 0.1 Sodium 141.0 Potassium 3.80 Chloride 101.0 Carbon Dioxide 34.0 H Anion Gap 9.80 BUN 9.0 Creatinine 0.80 Estimated GFR (MDRD) 70.00 BUN/Creatinine Ratio 11.25 Glucose 106.0 Lactic Acid 0.76 Calcium 8.60 Total Bilirubin 0.30 AST 22.0 ALT 20.0 Alkaline Phosphatase 124.0 Total Protein 7.20 Albumin 3.80 Globulin 3.40 Albumin/Globulin Ratio 1.11 TSH Pending Orders Category Date Time Status EKG-(ED ONLY) Stat CARDIO 03/29/18 10:58 Completed BLOOD CULTURE (ED ONLY) Stat LAB 03/29/18 11:35 Received CBC W/ AUTO DIFF Stat LAB 03/29/18 11:35 Completed COMPREHENSIVE METABOLIC PANEL Stat LAB 03/29/18 11:35 Results FREE T4 (FREE THYROXINE) Stat LAB 03/29/18 11:35 Received LACTIC ACID Stat LAB 03/29/18 11:35 Completed PROCALCITONIN Stat LAB 03/29/18 11:35 Received THYROID STIMULATING HORMONE Stat LAB 03/29/18 11:35 Results URINALYSIS C & S IF INDICATED Stat LAB 03/29/18 10:[address] CERVICAL SPINE W/O CONTRAST Stat RADS 03/29/18 10:[address] CHEST W/O CONTRAST Stat RADS 03/29/18 11:[address] HEAD W/O CONTRAST Stat RADS 03/29/18 10:59 Completed HAND, LEFT 3 VIEWS Stat RADS 03/29/18 11:00 Completed WRIST, LEFT 3 VIEWS Stat RADS 03/29/18 11:00 Completed Vital Signs: Temp Pulse Resp BP Pulse Ox 03/29/18 10:38 97.4 F L 66 20 146/81 H 95 Departure - Departure Time of Disposition: 13:19 (DISCUSSED THE LOCATION OF THE FRACTURE WITH THE [place] AND C/SPINE MODEL AND DOCTOR VILLA MD FOLLOW UP) Disposition: HOME SELF-CARE Discharge Problem: Falls Fracture of cervical vertebra, C6 Qualifiers: Encounter type: initial encounter Fracture type: closed Fracture morphology: unspecified fracture morphology Fracture alignment: displaced Qualified Code(s) : S12.500A - Unspecified displaced fracture of sixth cervical vertebra, initial encounter for closed fracture Instructions: Soft Cervical Collar (ED), Avulsion Fracture (ED) Condition: Good Pt referred to PMD for follow-up: Yes IPMP verified?: No Additional Instructions: Please call your Family Physician as soon as possible to schedule a follow-up appointment.YOUR NECK IS BROKEN BUT THIS IS NOT A BAD BREAK BUT, YOU MUST SEE DOCTOR VILLA OUTLINED Allergies/Adverse Reactions: Allergies amoxicillin Adverse Reaction (Verified 03/29/18 10:47) Rash codeine Adverse Reaction (Verified 03/29/18 10:47) gets gas Home Medications: Ambulatory Orders Calcium Carb/Vitamin D3/Vit K1 [Calcium + D Soft Chewable Tab] 1 each PO BID 02/22 Calcium Polycarbophil [Fiber Tabs] 500 mg PO TID 06/15/17 Multivitamin [Multi-Day Vitamins] 1 each PO DAILY 06/15/17 Omeprazole Magnesium [Prilosec Otc] 20 mg PO DAILY 06/15/17 Duloxetine HCl [Cymbalta] 60 mg PO DAILY 02/05/18 Potassium 99 mg PO DAILY 03/29/18 Disposition Discussed With: Patient, Family
== END 2018-03-29 14:15 | disposition home or self-care (01) ==
LOC: ED 10:36
DX: S12.500A Unspecified displaced fracture of sixth cervical vertebra, initial encounter for closed fracture (principal); S69.90XA Unspecified injury of unspecified wrist, hand and finger(s), initial encounter; R29.6 Repeated falls; W19.XXXA Unspecified fall, initial encounter; Z86.73 Personal history of transient ischemic attack (TIA), and cerebral infarction without residual deficits
CPT/HCPCS: 36415; 80053; 83605; 84145; 84439; 84443; 85025; 87040; 93005; 93010; 99283

== ENCOUNTER 2018-04-05 10:00 | Outpatient (RCR) | payer OTHER ==
[2017-10-10 10:34] VITALS: BMI 21.7
== END 2018-04-07 23:59 ==
LOC: NEWBEG 10:00
PROVIDERS: ATTEND Psychiatry & Neurology Psychiatry
DX: F33.2 Major depressive disorder, recurrent severe without psychotic features (principal); F43.10 Post-traumatic stress disorder, unspecified
CPT/HCPCS: 90853; 99213

== ENCOUNTER 2018-04-08 13:16 | Outpatient (CLI) | payer OTHER ==
--- NOTE | 2018-04-08 15:46 | DI ---
EXAM: Four views of the left knee. History: Left knee pain. Findings: No acute fracture or dislocation. No abnormal calcifications or radiopaque foreign bodies . Joint spaces are preserved. Impression: Unremarkable exam
--- NOTE | 2018-04-08 15:47 | DI ---
EXAM: Four views of the right knee. History: Right knee pain. Findings: No acute fracture or dislocation. No abnormal calcifications or radiopaque foreign bodies . Joint spaces are preserved. Minimal superior patellar enthesiopathy Impression: 1. No acute osseous abnormality. 2. No significant degenerative joint disease. 3. Minimal superior patellar enthesiopathy
== END 2018-04-08 13:17 | disposition home or self-care (01) ==
LOC: RAD 13:16
PROVIDERS: ATTEND Nurse Practitioner Family
DX: M25.562 Pain in left knee (principal); M25.561 Pain in right knee

== ENCOUNTER 2018-04-10 10:05 | Emergency (ER) | payer OTHER ==
[2018-04-10 10:13] VITALS: BP 141/78; TEMP 98.7; BMI 21.6
--- NOTE | 2018-04-10 11:06 | DI ---
Exam: Single view of the pelvis. Comparison: Left hip x-rays performed 06/28/2017. Reason for exam: Fall. FINDINGS: The pelvic ring appears intact. No acute fracture or malalignment. Partially imaged oper ative changes are seen after pedicle screw and jose luis fixation. Impression: No acute fracture is seen within the pelvis.
--- NOTE | 2018-04-10 11:17 | DI ---
EXAM: Radiographs, right hip HISTORY: Initial presentation for head trauma. COMPARISON: 09/27/2014. TECHNIQUE: Two views. FINDINGS: Bone mineralization is decreased. No fracture or dislocation identified. The joint space s maintained. The radiopaque objects project over the right iliac wing on the frog lateral view whic h are of uncertain etiology, possibly ingested material. Soft tissues are otherwise unremarkable. IMPRESSION: No fracture or dislocation.
--- NOTE | 2018-04-10 11:18 | DI ---
EXAM: Two views of the right femur HISTORY: Fall. COMPARISON: Right hip x-rays same day FINDINGS: The right femur demonstrates no cortical irregularity or displaced fracture. There is dege nerative change in the right knee. There is mild narrowing and osteophyte formation of the right hip . The right hip is better evaluated on same day dedicated hip x-rays. IMPRESSION: 1. No acute abnormality or fracture of the right femur. 2. Degenerative change of the hip and knee. Evaluation of the right hip is better performed on same date dedicated hip x-rays.
--- NOTE | 2018-04-10 11:52 | ED.PDOC ---
General ED Provider: Dr. MAIDA DAVILA Chief Complaint: Fall Stated Complaint: hip pain right after a fall Time Seen by Physician: 10:10 (seen with nurse at all times ) Mode of Arrival: Wheelchair Information Source: Patient, Family Exam Limitations: No limitations Primary Care Provider: ZULLY [facility]ORRISON[facility] Nursing and Triage Documentation Reviewed and Agree: Yes Does patient meet sepsis criteria?: No If yes, has appropriate treatment been initiated?: No System Inflammatory Response Syndrome: Not Applicable Sepsis Protocol: For patient's 13 years and over: Temp is 96.8 and below OR 101 and greater Pulse >90 BPM Resp >20/minute Acutely Altered Mental Status Are patient's symptoms suggestive of a new infection, such as: -Pneumonia -Skin, Soft Tissue -Endocarditis -UTI -Bone, Joint Infection -Implantable Device -Acute Abdominal Infection -Wound Infection -Meningitis -Blood Stream Catheter Infection -Unknown Trauma/Injury Complaint Exam - Trauma Complaint/Exam Location of Pain or Injury: Reports: RLE (hip/pelvis/tigh). Denies: Head, Scalp , Face, Neck, RUE, LUE, Chest, Abdomen, Back Mechanism of Injury: Reports: Fall Onset/Duration: today Symptoms Are: Still present Timing of Treatment: Immediate Initial Severity: Mild Current Severity: Mild Character: Reports: Aching Aggravating: Reports: Movement Alleviating: Reports: None Associated Signs and Symptoms: Denies: LOC, Confusion, Memory loss, Lethargy, Vomiting, Bleeding, Bruising, Swelling, Extremity disuse, Painful respiration, Hoarseness, Dysphagia, Hemoptysis, Significant blood loss Related History: Reports: Similar episode (fall had neck fx ) Nexus Low Risk Criteria: No post-midline CS tender, No evidence of intoxicat., No Altered LOC, No focal neuro deficit, No distracting injuries Trauma Findings: Absent: [place] eyes, Hemotympanum, Nasal deformity, Dental tenderness, Dental injury, Dental malocclusion, Neck tenderness, Neck spasm, SubQ Air, Crepitus, Airway obstructed, Trachea displaced, Decreased breath sounds, Muffled heart sounds, Pelvic instability Review of Systems - Review Of Systems Constitutional: Reports: No symptoms Eyes: Reports: No symptoms Ears, Nose, Mouth, Throat: Reports: No symptoms Respiratory: Reports: No symptoms Cardiac: Reports: No symptoms GI: Reports: No symptoms : Reports: No symptoms Musculoskeletal: Reports: Joint pain (hip pain) Skin: Reports: No symptoms Neurological: Reports: No symptoms Endocrine: Reports: No symptoms Hematologic/Lymphatic: Reports: No symptoms All Other Systems: Reviewed and Negative Past Medical History - Past Medical History Previously Healthy: Yes Endocrine: Reports: None Cardiovascular: Reports: None Respiratory: Reports: None Hematological: Reports: None Gastrointestinal: Reports: None Genitourinary: Reports: None Neuro/Psych: Reports: Migraine, Anxiety, Depression, Other (TIA/CVA affecting RLE) Musculoskeletal: Reports: Arthritis (chronic neck pain ), Back Pain Cancer: Reports: None Last Menstrual Period: hysterectomy - Surgical History General Surgical History: Reports: Hysterectomy (1964), Appendectomy, Cholecystectomy, Tonsillectomy, Back Surgery - Family History Family History: Reports: None - Social History Smoking Status: Former smoker Hx Substance Use: No (marijuana use in past) Alcohol Screening: None Physical Exam - Physical Exam Appearance: Well-appearing, No pain distress, Well-nourished Eyes: JAVIER, EOMI, Conjunctiva clear ENT: Ears normal, Nose normal, Oropharynx normal Respiratory: Airway patent, Breath sounds clear, Breath sounds equal, Respirations nonlabored Cardiovascular: RRR, Pulses normal, No rub, No murmur GI/: Soft, Nontender, No masses, Bowel sounds normal, No Organomegaly Musculoskeletal: Normal strength, ROM intact, No edema, No calf tenderness Skin: Warm, Dry, Normal color Neurological: Sensation intact, Motor intact, Reflexes intact, Cranial nerves intact, Alert, Oriented Psychiatric: Affect appropriate, Mood appropriate Interpretation - Radiology Interpretation Radiology Interpretation By: Radiologist Radiology Results: No acute changes Re-Evaluation - Re-Evaluation Time of Re-Evaluation: 11:52 (seen with hussein x ray reports discussed ) Vital Signs Stable: Yes Pain Level: 0 Appearance: NAD Lungs: Clear Skin: Warm and Dry Neuro: Alert and Oriented X3 CV: RRR Critical Care Note - Critical Care Note Total Time (mins): 0 Course - Course Orders, Labs, Meds: Orders Category Date Time Status FEMUR, RIGHT 2 VIEWS Stat RADS 04/10/18 10:23 Completed HIP, RIGHT 2 VIEWS Stat RADS 04/10/18 10:22 Completed PELVIS 1 OR 2 VIEWS Stat RADS 04/10/18 10:22 Completed Vital Signs: Temp Pulse Resp BP Pulse Ox 10/03/18 10:06 98.7 F 82 20 141/78 H 96 Departure - Departure Time of Disposition: 11:51 Disposition: HOME SELF-CARE Discharge Problem: Sprain of right hip Qualifiers: Encounter type: initial encounter Qualified Code(s): S73.101A - Unspecified sprain of right hip, initial encounter Instructions: Hip Sprain (ED) Condition: Good Pt referred to PMD for follow-up: Yes IPMP verified?: No Additional Instructions: Please call your Family Physician as soon as possible to schedule a follow-up appointment. Allergies/Adverse Reactions: Allergies amoxicillin Adverse Reaction (Verified 04/10/18 10:15) Rash codeine Adverse Reaction (Verified 04/10/18 10:15) gets gas Home Medications: Ambulatory Orders Calcium Carb/Vitamin D3/Vit K1 [Calcium + D Soft Chewable Tab] 1 each PO BID 02/22 Calcium Polycarbophil [Fiber Tabs] 500 mg PO TID 06/15/17 Multivitamin [Multi-Day Vitamins] 1 each PO DAILY 06/15/17 Omeprazole Magnesium [Prilosec Otc] 20 mg PO DAILY 06/15/17 Duloxetine HCl [Cymbalta] 60 mg PO DAILY 02/05/18 Potassium 99 mg PO DAILY 03/29/18 Disposition Discussed With: Patient, Family
== END 2018-04-10 12:02 | disposition home or self-care (01) ==
LOC: ED 10:05
DX: S73.101A Unspecified sprain of right hip, initial encounter (principal); W19.XXXA Unspecified fall, initial encounter
CPT/HCPCS: 99283

== ENCOUNTER 2018-04-13 10:23 | Emergency (ER) ==
[2018-04-13 10:48] VITALS: BP 138/69; TEMP 97.6; BMI 22.4
[2018-04-13] MEDS ORDERED: LIDOCAINE HCL 1% SDV SUBCUT STA (10:48)
--- NOTE | 2018-04-13 10:53 | CT ---
EXAM: CT scan of the head without contrast HISTORY: Patient fell. TECHNIQUE: Helical imaging of the head was performed without contrast. 5 mm thin axial images and c oronal and sagittal images were provided for interpretation. Comparison 03/29/2018 CT scan of the head. FINDINGS: The lateral ventricles and cortical sulci are prominent from atrophy. Low density changes are again seen throughout the supratentorial white matter. There is an old lacunar type infarct see n within the left basal ganglia. No acute hemorrhages are seen. There are no extraaxial collections . There is no mass effect. The basal cisterns are patent. The paranasal sinuses and mastoid air luis e ls are clear. The calvarium and extracranial soft tissues are normal. IMPRESSION: No acute traumatic abnormalities are seen. Chronic small vessel ischemic changes seen within the supratentorial white matter.
[2018-04-13] MEDS ORDERED: TENIVAC IM ONE (10:58)
--- NOTE | 2018-04-13 10:59 | CT ---
EXAM: CT scan of the cervical spine without contrast HISTORY: Patient fell. TECHNIQUE: Helical imaging of the cervical spine was performed without contrast. Sagittal and coron al reconstructions and axial images were provided for interpretation. FINDINGS: The occipital condyles, C1 ring appear intact. No acute abnormalities are seen within the odontoid process and C2 vertebral body. The spinous processes are intact. There is mild anterior s ubluxation of C3 on C4 measuring approximately 2 mm. There is a normal alignment of the facet joints . No acute fractures are seen. There is severe loss of disc height and degenerative disc disease see n from the C4 down to the C7 level. The prevertebral soft tissues are normal. IMPRESSION: No evidence of acute fracture dislocation seen within the cervical spine.
--- NOTE | 2018-04-13 11:11 | ED.PDOC ---
General ED Provider: Dr. JESSICA HERRERA-ER Chief Complaint: Fall Stated Complaint: she fell and hit her head---denies any loc or vomiting Time Seen by Physician: 10:45 Mode of Arrival: Stretcher Information Source: Patient, Family Exam Limitations: No limitations Primary Care Provider: ZULLY MORRISON-[facility] Nursing and Triage Documentation Reviewed and Agree: Yes Does patient meet sepsis criteria?: No System Inflammatory Response Syndrome: Not Applicable Sepsis Protocol: For patient's 13 years and over: Temp is 96.8 and below OR 101 and greater Pulse >90 BPM Resp >20/minute Acutely Altered Mental Status Are patient's symptoms suggestive of a new infection, such as: -Pneumonia -Skin, Soft Tissue -Endocarditis -UTI -Bone, Joint Infection -Implantable Device -Acute Abdominal Infection -Wound Infection -Meningitis -Blood Stream Catheter Infection -Unknown Skin Complaint Exam - Laceration/Head/Facial Complaint/Exam Location of Injury: Scalp Mechanism of Injury: Laceration Onset/Duration: 30 mimn Symptoms Are: Still present Initial Severity: Mild Current Severity: Mild Aggravating: Movement Alleviating: Compression Associated Signs and Symptoms: Denies: Fever, Chills, Erythema, Numbness, Tingling Differential Diagnoses: Laceration Review of Systems - Review Of Systems Constitutional: Reports: No symptoms Eyes: Reports: No symptoms Ears, Nose, Mouth, Throat: Reports: No symptoms Respiratory: Reports: No symptoms Cardiac: Reports: No symptoms GI: Reports: No symptoms : Reports: No symptoms Musculoskeletal: Reports: No symptoms Skin: Reports: No symptoms Neurological: Reports: No symptoms Endocrine: Reports: No symptoms Hematologic/Lymphatic: Reports: No symptoms All Other Systems: Reviewed and Negative Past Medical History - Past Medical History Previously Healthy: Yes Endocrine: Reports: None Cardiovascular: Reports: None Respiratory: Reports: None Hematological: Reports: None Gastrointestinal: Reports: None Genitourinary: Reports: None Neuro/Psych: Reports: Migraine, Anxiety, Depression, Other (TIA/CVA affecting RLE) Musculoskeletal: Reports: Arthritis (chronic neck pain ), Back Pain Cancer: Reports: None Last Menstrual Period: unknown - Surgical History General Surgical History: Reports: Hysterectomy (1964), Appendectomy, Cholecystectomy, Tonsillectomy, Back Surgery - Family History Family History: Reports: None - Social History Smoking Status: Former smoker Hx Substance Use: Yes (marijuana in past) Alcohol Screening: None Physical Exam - Physical Exam Appearance: Well-appearing, No pain distress, Well-nourished Pain Distress: Mild Eyes: JAVIER, EOMI, Conjunctiva clear ENT: Ears normal, Nose normal, Oropharynx normal Neck: Supple Respiratory: Airway patent, Breath sounds clear, Breath sounds equal, Respirations nonlabored Cardiovascular: RRR, Pulses normal, No rub, No murmur GI/: Soft, Nontender, No masses, Bowel sounds normal, No Organomegaly Musculoskeletal: Normal strength, ROM intact, No edema, No calf tenderness Skin: Warm, Dry, Normal color Neurological: Sensation intact, Motor intact, Reflexes intact, Cranial nerves intact, Alert, Oriented Psychiatric: Affect appropriate, Mood appropriate, Anxious Interpretation - Radiology Interpretation Radiology Interpretation By: Radiologist Radiology Results: Negative Exam Interpreted: CT Scan Procedures - Laceration/Wound Repair No standard instances Wound Description: Linear Wound Length (cm): 1.5cm scalp Wound Explored: Clean Wound Irrigated: Yes Wound Prep: Hibiclens Anesthesia: Lidocaine Wound Repaired With: [place] Number of Cesar: 3 Layer Closure?: No Sterile Dressing Applied?: Yes Splint Applied?: No Sling Applied?: No Critical Care Note - Critical Care Note Total Time (mins): 0 Course - Course Orders, Labs, Meds: Orders Category Date Time Status Lidocaine HCl/Pf [Lidocaine HCl 1% Sdv] MEDS 04/13/18 10:48 Discontinued 5 ml SUBCUT ONCE STA Tetanus and Diphtheria Tox/Pf [Tenivac] MEDS 04/13/18 10:58 Discontinued 0.5 ml IM .ONCE ONE CT CERVICAL SPINE W/O CONTRAST Stat RADS 04/13/18 10:[address] HEAD W/O CONTRAST Stat RADS 04/13/18 10:24 Completed Medications Discontinued Medications Generic Name Dose Route Start Last Admin Trade Name Freq PRN Reason Stop Dose Admin Lidocaine HCl 5 ml 04/13/18 10:48 Lidocaine Hcl 1% Sdv SUBCUT 04/13/18 10:49 ONCE STA Tetanus/Diphtheria Toxoids Adsorbed 0.5 ml 04/13/18 10:58 Tenivac IM 04/13/18 10:59 .ONCE ONE Vital Signs: Temp Pulse Resp BP Pulse Ox 04/13/18 10:35 97.6 F 66 20 138/69 95 Departure - Departure Time of Disposition: 11:12 Disposition: HOME SELF-CARE Discharge Problem: Scalp laceration Qualifiers: Encounter type: initial encounter Qualified Code(s): S01.01XA - Laceration without foreign body of scalp, initial encounter Instructions: Laceration (ED), Staple Care (ED) Condition: Good Pt referred to PMD for follow-up: Yes IPMP verified?: No Additional Instructions: keep clean and dry-=-cesar out in 7 days Allergies/Adverse Reactions: Allergies amoxicillin Adverse Reaction (Verified 04/13/18 10:49) Rash codeine Adverse Reaction (Verified 04/13/18 10:49) gets gas Home Medications: Ambulatory Orders Calcium Carb/Vitamin D3/Vit K1 [Calcium + D Soft Chewable Tab] 1 each PO BID 02/22 Calcium Polycarbophil [Fiber Tabs] 500 mg PO TID 06/15/17 Multivitamin [Multi-Day Vitamins] 1 each PO DAILY 06/15/17 Omeprazole Magnesium [Prilosec Otc] 20 mg PO DAILY 06/15/17 Duloxetine HCl [Cymbalta] 60 mg PO DAILY 02/05/18 Potassium 99 mg PO DAILY 03/29/18 Disposition Discussed With: Patient, Family
== END 2018-04-13 11:42 | disposition home or self-care (01) ==
LOC: ED 10:23
DX: S01.01XA Laceration without foreign body of scalp, initial encounter (principal); W19.XXXA Unspecified fall, initial encounter
CPT/HCPCS: 90471; 90714; 99283

== ENCOUNTER 2018-04-16 11:00 | Emergency (ER) | payer OTHER ==
[2018-04-16 11:07] VITALS: BP 115/55; TEMP 96.3
--- NOTE | 2018-04-16 12:35 | CT ---
EXAM: CT chest without contrast. HISTORY: Cough. Chronic obstructive pulmonary disease. COMPARISON: 03/29/2018, 04/04/2017, 02/14/2012. TECHNIQUE: Multiple axial images of the chest were obtained without intravenous contrast. Images we re reformatted in the sagittal and coronal planes. FINDINGS: Heart size is normal. Atherosclerotic calcifications present but no pericardial effusion identified. Evaluation for lymphadenopathy is limited by lack of intravenous contra. A 0.4 cm right lower lobe nodule on axial image 31 is stable since 2011. Calcified granulomatous robin nges noted. No consolidation, pleural effusion or pneumothorax identified. Limited images of the upper abdomen demonstrate no acute abnormality. Degenerative changes present i n the spine. IMPRESSION: No acute cardiopulmonary process.
--- NOTE | 2018-04-16 12:36 | CT ---
EXAM: CT BRAIN HISTORY: Pain, falls TECHNIQUE: CT brain without intravenous contrast. 5-mm axial sections with Reformations. COMPARISON: 04/13/2018 FINDINGS: There is generalized atrophy. There is relatively severe periventricular and deep white matter low at tenuation which although nonspecific is suggestive of chronic microvascular ischemic change. 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 These findings are stable. Brain otherwise is unremarkable without evidence of hemorrhage or large vessel distribution recent is chemic infarction. There is no suggestion of acute hydrocephalus or subdural fluid collection. No m ass or mass effect. Cranium has no acute finding. Mastoid processes are aerated. The visualized paranasal sinuses are clear. IMPRESSION: Significant involutional changes although no acute intracranial process or injury identi fied. No skull fracture.
--- NOTE | 2018-04-16 14:24 | ED.PDOC ---
General ED Provider: Dr. MAIDA DAVILA Chief Complaint: Altered Mental Status Stated Complaint: altered mental status Time Seen by Physician: 11:00 Information Source: Family, Other Exam Limitations: No limitations [facility] Documentation Reviewed and Agree: Yes Does patient meet sepsis criteria?: No If yes, has appropriate treatment been initiated?: No System Inflammatory Response Syndrome: Not Applicable Sepsis Protocol: For patient's 13 years and over: Temp is 96.8 and below OR 101 and greater Pulse >90 BPM Resp >20/minute Acutely Altered Mental Status Are patient's symptoms suggestive of a new infection, such as: -Pneumonia -Skin, Soft Tissue -Endocarditis -UTI -Bone, Joint Infection -Implantable Device -Acute Abdominal Infection -Wound Infection -Meningitis -Blood Stream Catheter Infection -Unknown Neurological Complaint Exam - Altered Mental Status Complaint/Exam Current Mental Status: Other (family stated this pt has ahd frequent falls and altered mental status .) Last Known Well: pt seem multiple times for the same issue in the E/D Duration: 1 WEEK Symptoms Are: Still present Timing: Constant Episodes Lasting: Days Initial Severity: Moderate Current Severity: Moderate Eye Deviation Present: No Character: Reports: Confusion Aggravating: Reports: None Alleviating: Reports: None Associated Signs and Symptoms: Denies: Dizziness, Weakness, Headache, Fever, Illness, Nuchal rigidity, Seizure (FREQUENT FALLS), Nausea, Vomiting, Recently depressed, Trauma Related History: Reports: Similar episode Cardiac Risk Factors: Reports: None CVA Risk Factors: Reports: None Related Surgical History: Reports: None Carotid Bruit Present: No Glascow Coma Scale (see protocol): 15 Nystagmus Present: Yes Gag Reflex Present: Yes Meningeal Signs Positive: No Focal Weakness: Present: None Focal Sensory Loss: Present: None Gait: Normal Babinski Sign: Negative Right, Negative Left Signs of Injury: Present: Normal findings Differential Diagnoses: Metabolic Disorder, Overdose Review of Systems - Review Of Systems Constitutional: Reports: No symptoms Eyes: Reports: No symptoms Ears, Nose, Mouth, Throat: Reports: No symptoms Respiratory: Reports: No symptoms Cardiac: Reports: No symptoms GI: Reports: No symptoms : Reports: No symptoms Musculoskeletal: Reports: No symptoms Skin: Reports: No symptoms Neurological: Reports: Cognitive dysfunction Endocrine: Reports: No symptoms Hematologic/Lymphatic: Reports: No symptoms All Other Systems: Reviewed and Negative Past Medical History - Past Medical History Previously Healthy: Yes Endocrine: Reports: None Cardiovascular: Reports: None Respiratory: Reports: None Hematological: Reports: None Gastrointestinal: Reports: None Genitourinary: Reports: None Neuro/Psych: Reports: Migraine, Anxiety, Depression, Other (TIA/CVA affecting RLE) Musculoskeletal: Reports: Arthritis (chronic neck pain ), Back Pain Cancer: Reports: None Last Menstrual Period: menopause - Surgical History General Surgical History: Reports: Hysterectomy (1965), Appendectomy, Cholecystectomy, Tonsillectomy, Back Surgery - Family History Family History: Reports: None - Social History Smoking Status: Former smoker Hx Substance Use: Yes (marijuana) Alcohol Screening: None Physical Exam - Physical Exam Appearance: Well-appearing, No pain distress, Well-nourished Eyes: JAVIER, EOMI, Conjunctiva clear ENT: Ears normal, Nose normal, Oropharynx normal Respiratory: Airway patent, Breath sounds clear, Breath sounds equal, Respirations nonlabored Cardiovascular: RRR, Pulses normal, No rub, No murmur GI/: Soft, Nontender, No masses, Bowel sounds normal, No Organomegaly Musculoskeletal: Normal strength, ROM intact, No edema, No calf tenderness Skin: Warm, Dry, Normal color Neurological: Sensation intact, Motor intact, Reflexes intact, Cranial nerves intact, Alert, Oriented Psychiatric: Affect appropriate, Mood appropriate Interpretation - Radiology Interpretation Radiology Interpretation By: Radiologist Radiology Results: No acute changes Physician Notification - Case Discussed Physician Notified: JOSUÉ PENNINGTON Time of Notification: 14:25 (CAN BE TREATED OUT PT) Critical Care Note - Critical Care Note Total Time (mins): 0 Course - Course Hematology/Chemistry: 04/16/18 11:30 04/16/18 11:30 Orders, Labs, Meds: Lab Review 04/16/18 04/16/18 04/16/18 11:30 11:30 11:30 WBC 7.08 RBC 3.85 L Hgb 12.3 Hct 36.0 L MCV 93.5 MCH 31.9 H MCHC 34.2 RDW Coeff of Ella 12.3 Plt Count 242 Immature Gran % (Auto) 0.3 Neut % (Auto) 53.9 Lymph % (Auto) 29.1 [place] % (Auto) 8.6 Eos % (Auto) 7.1 H Baso % (Auto) 1.0 Immature Gran # (Auto) 0.0 Neut # (Auto) 3.8 Lymph # (Auto) 2.1 [place] # (Auto) 0.6 Eos # (Auto) 0.5 Baso # (Auto) 0.1 PT INR APTT Sodium 138.0 Potassium 3.39 L Chloride 99.4 Carbon Dioxide 30.9 H Anion Gap 11.09 BUN 16.3 Creatinine 1.35 H Estimated GFR (MDRD) 38.00 BUN/Creatinine Ratio 12.07 Glucose 112.0 H Lactic Acid 0.82 Calcium 8.65 Total Bilirubin 0.84 AST 30.6 ALT 39.8 H Alkaline Phosphatase 103.7 Total Creatine Kinase 80.3 Troponin I < 0.012 Total Protein 6.68 Albumin 4.04 Globulin 2.64 Albumin/Globulin Ratio 1.53 Procalcitonin Urine Color Urine Clarity Urine pH Ur Specific Hensel Urine Protein Urine Glucose (UA) Urine Ketones Urine Blood Urine Nitrite Urine Bilirubin Urine Urobilinogen Ur Leukocyte Esterase Urine Microscopic RBC Urine Microscopic WBC Ur Squamous Epith Cells Urine Bacteria 04/16/18 04/16/18 04/16/18 11:30 11:30 13:40 WBC RBC Hgb Hct MCV MCH MCHC RDW Coeff of Ella Plt Count Immature Gran % (Auto) Neut % (Auto) Lymph % (Auto) [place] % (Auto) Eos % (Auto) Baso % (Auto) Immature Gran # (Auto) Neut # (Auto) Lymph # (Auto) [place] # (Auto) Eos # (Auto) Baso # (Auto) PT 10.3 INR 1.03 APTT 30.3 Sodium Potassium Chloride Carbon Dioxide Anion Gap BUN Creatinine Estimated GFR (MDRD) BUN/Creatinine Ratio Glucose Lactic Acid Calcium Total Bilirubin AST ALT Alkaline Phosphatase Total Creatine Kinase Troponin I Total Protein Albumin Globulin Albumin/Globulin Ratio Procalcitonin 0.16 Urine Color Yellow Urine Clarity Cloudy Urine pH 6.0 Ur Specific Hensel 1.015 Urine Protein 1+ Urine Glucose (UA) Negative Urine Ketones Negative Urine Blood Trace-lysed Urine Nitrite Positive Urine Bilirubin 1+ Urine Urobilinogen 0.2 Ur Leukocyte Esterase 3+ Urine Microscopic RBC 0-2 Urine Microscopic WBC Tntc Ur Squamous Epith Cells Not present Urine Bacteria 4+ Orders Category Date Time Status EKG-(ED ONLY) Stat CARDIO 04/16/18 11:13 Completed BLOOD CULTURE Stat LAB 04/16/18 11:13 Ordered CBC W/ AUTO DIFF Stat LAB 04/16/18 11:30 Completed COMPREHENSIVE METABOLIC PANEL Stat LAB 04/16/18 11:30 Completed CREATINE KINASE Stat LAB 04/16/18 11:30 Completed LACTIC ACID Stat LAB 04/16/18 11:30 Completed PARTIAL THROMBOPLASTIN TIME Stat LAB 04/16/18 11:30 Completed PROCALCITONIN Stat LAB 04/16/18 11:30 Completed PT WITH INR Stat LAB 04/16/18 11:30 Completed TROPONIN I Stat LAB 04/16/18 11:30 Completed URINALYSIS C & S IF INDICATED Stat LAB 04/16/18 13:40 Completed URINE CULTURE Stat LAB 04/16/18 13:[address] CHEST W/O CONTRAST Stat RADS 04/16/18 11:[address] HEAD W/O CONTRAST Stat RADS 04/16/18 11:13 Completed Vital Signs: Temp Pulse Resp BP Pulse Ox 04/16/18 11:01 96.3 F L 64 20 115/55 L 16 L Departure - Departure Time of Disposition: 14:27 Disposition: HOME SELF-CARE Discharge Problem: Altered mental status UTI (urinary tract infection) Qualifiers: Urinary tract infection type: site unspecified Hematuria presence: without hematuria Qualified Code(s): N39.0 - Urinary tract infection, site not specified Instructions: Urinary Tract Infection in Women (ED) Condition: Good Pt referred to PMD for follow-up: Yes IPMP verified?: No Additional Instructions: Please call your Family Physician as soon as possible to schedule a follow-up appointment. Allergies/Adverse Reactions: Allergies amoxicillin Adverse Reaction (Verified 04/16/18 11:08) Rash codeine Adverse Reaction (Verified 04/16/18 11:08) gets gas Home Medications: Ambulatory Orders Calcium Carb/Vitamin D3/Vit K1 [Calcium + D Soft Chewable Tab] 1 each PO BID 02/22 Calcium Polycarbophil [Fiber Tabs] 500 mg PO TID 06/15/17 Multivitamin [Multi-Day Vitamins] 1 each PO DAILY 06/15/17 Omeprazole Magnesium [Prilosec Otc] 20 mg PO DAILY 06/15/17 Duloxetine HCl [Cymbalta] 60 mg PO DAILY 02/05/18 Potassium 99 mg PO DAILY 03/29/18 Disposition Discussed With: Patient, Family
[2018-04-16] MEDS ORDERED: LIDOCAINE HCL 1% SDV IM STA (14:29)
[2018-04-16] MEDS ORDERED: ROCEPHIN IM STA (14:29)
== END 2018-04-16 15:12 | disposition home or self-care (01) ==
LOC: ED 11:00
DX: R41.82 Altered mental status, unspecified (principal); N39.0 Urinary tract infection, site not specified; R29.6 Repeated falls; Z86.73 Personal history of transient ischemic attack (TIA), and cerebral infarction without residual deficits
CPT/HCPCS: 36415; 80053; 81001; 82550; 83605; 84145; 84484; 85025; 85610; 85730; 87040; 87086; 87186; 93005; 93010; 96372; 99283

== ENCOUNTER 2018-04-26 10:00 | Outpatient (RCR) | END 2018-05-08 23:59 | LOC: NEWBEG 10:00 | PROVIDERS: ATTEND Psychiatry & Neurology Psychiatry | DX: F33.2 Major depressive disorder, recurrent severe without psychotic features (principal); F43.10 Post-traumatic stress disorder, unspecified | CPT/HCPCS: 90853; 99213 ==

== ENCOUNTER 2018-04-30 16:19 | Outpatient (CLI) | payer OTHER | END 2018-04-30 16:20 | disposition home or self-care (01) | LOC: FCC-LAB 16:19 | PROVIDERS: ATTEND Nurse Practitioner Family | DX: K62.5 Hemorrhage of anus and rectum (principal) | CPT/HCPCS: 36415; 85027 ==

== ENCOUNTER 2018-05-01 12:44 | Outpatient (CLI) | payer OTHER ==
--- NOTE | 2018-05-06 11:43 | HOLTER ---
PATIENT INFORMATION AND COMMENTS Attending Physician: MI CASTORENA APRN Indications: DIZZINESS, SOB, FREQUENT FALLS __ Patient Medications: ZANTAC, HYDROCODONE, PLAVIX, LISINOPRIL, METOPROLOL, CYMBALTA, CITALOPRAM __ Pre-procedure Summary: Protocol: Standard Heart Rate Started: 05/01/18 1313 Minimum: 61 BPM Weight: 116 LBS Ended:05/01/18 1254 Maximum: 136 BPM Height:62" Duration: 23 HRS 40 MIN Average: 77 BPM _ INTERPRETATIONS/OBSERVATIONS: 1. BASIC RHYTHM: SINUS, RATE 60 BPM TO 135 BPM, AVERAGE 75 BPM 2. INFREQUENT TO RARE PAC'S AND PVC'S 3. NO ST-T WAVE CHANGES FROM BASELINE 4. NO CORRELATION WITH ACTIVITY LOG MTDD
== END 2018-05-01 12:45 | disposition home or self-care (01) ==
LOC: CAR 12:44
PROVIDERS: ATTEND Nurse Practitioner Family
DX: R29.6 Repeated falls (principal); R42 Dizziness and giddiness; R06.02 Shortness of breath
CPT/HCPCS: 93227

== ENCOUNTER 2018-05-03 15:30 | Outpatient (RCR) ==
--- NOTE | 2018-04-16 13:08 | RS.CXNS ---
Date of scheduled appointment: 04/16/18 Type: Cancel Reason for Cancel/NS: Patient's son comes by to report Ms. Horta is currently in the ER due to falls and confusion. May be admitted to the hospital.
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
--- NOTE | 2018-04-18 12:39 | RS.CXNS ---
Date of scheduled appointment: 04/18/18 Type: Cancel Reason for Cancel/NS: Sick,son reports she fell,has increased confusion.
--- NOTE | 2018-04-24 14:29 | RS.OPPTDN ---
Subjective Date of Note: 04/24/18 Visit #: 2 Number of visits approved by Insurance: NA Date of Evaluation: 04/11/18 Payer Source: MEDICARE Treatment Diagnosis: Frequent falls, LE weakness, back pain Current Subjective/complaints:: Patient and her son report she has fallen a couple of times within the past 2-3 days,but no injury.She continues to feel , "woozy" when standing ,referring to swaying in all directions.She does not feel like the room is spinning. Interventions - Exercise/Activities/Manual Therapy Exercises/Activities: 45 mins. total for ex,ther. act,ang gait training.Supine exercises,3/10 for ankle pumps,SAQ's,heelslides with 1 # each LE.10 reps bridging,isometric hip abd/adduction in hooklying .Seated reaching activities at arm's length only today across midline and directly in front of her.Sit to stand x 5 ,then gait with R/W for [id number] with gait belt and min. assist of1. Total minutes of Exercise: 45 Manual Therapy: NA Total minutes of Manual Therapy: 0 HOME EXERCISE PROGRAM: seated LAQ's and hip flexion, and supine hip abd/ adduction and heel slides - Charges Timed Code Treatment Minutes: 40 Total Treatment Time: 50 Procedures billed for this date of service:: ex,ther. act., gt Assessment: Patient has excessive trunk sway with initial standing ,which lessens as the gait progresses.She has noted weakness in the trunk while sitting ,leans posteriorly ,corrects with tactile /verbal cues.She fatigues easily with all aspects of treatment,is high risk of falls at this time if unassisted. Patient Education: Education of diagnosis, Body/Joint mechanics, Home Exercise Program, Home Safety, Activity Modification, Education of Plan of Care Patient demonstrates compliance with HEP?: Yes Short Term Goals Goal #1: Pt independent and compliant in HEP. Goal to be met by: 04/26/18 Goal #2: Pt will demo. good safety with sit<>stand transfers in department. Goal to be met by: 04/26/18 Progress towards Goal:: Progressing Goal #3: Pt to amb. with RW with CGA of one 60 feet, with good base of support. Goal to be met by: 04/26/18 Progress towards Goal:: Progressing Half-Way Goals Goal #1: Pt knows HEP and to continue ex's to maintain functional level at D/C. Goal to be met by: 05/22/18 Goal #2: Score on Tinetti Assessment improved to 22/28. Goal to be met by: 05/22/18 Goal #3: Pt to amb. with RW household distances independently with good safety. Goal to be met by: 05/22/18 Goal #4: Pt to report no falls with mobility/ambulation. Goal to be met by: 05/22/18 Plan Dates of Half-Way Goals: 05/22/18 Expiration date of current Insurance Approval:: LTG dates PLAN: Continue PT to strengthen the LE's /trunk for safe transfers and safe gait for in -home distances .
--- NOTE | 2018-04-26 14:16 | RS.OPPTDN ---
Subjective Date of Note: 04/26/18 Visit #: 3 Number of visits approved by Insurance: NA Date of Evaluation: 04/11/18 Payer Source: MEDICARE Treatment Diagnosis: Frequent falls, LE weakness, back pain Current Subjective/complaints:: Patient reports no falls since last visit.She saw yesterday ,is wearing soft cervical for support. Pain Assessment - Pain Description Pain Location: LE's Pain Description: Chronic Pain Description: soreness in the LE's ,R>L Current Pain Intensity: not rated Interventions - Exercise/Activities/Manual Therapy Exercises/Activities: 45 mins. total for ex,ther. act,and gait training.Leg pres,09/20 @ 30 # ,then R LE only @ 15 # ,09/20.Isometric hip abd/add with small therapy ball between knees,09/20 .Gait training /transfer training and min/mod assist of 1.Sit to stand x 5 for proper hand placement. Total minutes of Exercise: 45 Manual Therapy: NA Total minutes of Manual Therapy: 0 HOME EXERCISE PROGRAM: seated LAQ's and hip flexion, and supine hip abd/ adduction and heel slides - Charges Timed Code Treatment Minutes: 45 Total Treatment Time: 50 Procedures billed for this date of service:: ex 2,gt Assessment: Patient has increased step length on R with cues given ,also improved trunk extension with cues given.She has increased trunk sway as she fatigues ,but no loss of balance with gait.She is higher risk for falls with pivot and backing up to chair. Patient Education: Education of diagnosis, Body/Joint mechanics, Home Exercise Program, Home Safety, Activity Modification, Education of Plan of Care Short Term Goals Goal #1: Pt independent and compliant in HEP. Goal to be met by: 04/26/18 Goal #2: Pt will demo. good safety with sit<>stand transfers in department. Goal to be met by: 04/26/18 Progress towards Goal:: Progressing Goal #3: Pt to amb. with RW with CGA of one 60 feet, with good base of support. Goal to be met by: 04/26/18 Progress towards Goal:: Progressing [facility] Goals Goal #1: Pt knows HEP and to continue ex's to maintain functional level at D/C. Goal to be met by: 05/22/18 Goal #2: Score on Tinetti Assessment improved to 22/28. Goal to be met by: 05/22/18 Goal #3: Pt to amb. with RW household distances independently with good safety. Goal to be met by: 05/22/18 Goal #4: Pt to report no falls with mobility/ambulation. Goal to be met by: 05/22/18 Progress towards goal: Progressing Plan Dates of [facility] Goals: 05/22/18 Expiration date of current Insurance Approval:: 05/22/18 PLAN: Cont. PT to increase strength in LE's /core for safe ,functional transfers /gait.
--- NOTE | 2018-04-30 15:08 | RS.OPPTDN ---
Subjective Date of Note: 04/30/18 Visit #: 4 Number of visits approved by Insurance: NA Date of Evaluation: 04/11/18 Payer Source: MEDICARE Treatment Diagnosis: Frequent falls, LE weakness, back pain Current Subjective/complaints:: Patient reports not feeling as well today.The daughter -in- law reports she is taking her to the doctor after therapy ,has had a recent UTI. Pain Assessment - Pain Description Pain Location: LE's,back Pain Description: Aching Pain Description: muscle soreness Interventions - Exercise/Activities/Manual Therapy Exercises/Activities: 40 mins. total for ex,ther. act,and gait training.Seated exercises with 1.5 # ,3/10 each of hip flexion ,LAQ's,standing weight shift to L and R with mod. assist of 1 with gait belt.Gait training with rolling walker for 30' x 2 and min assist of 1.Sit to stand transfers (x 5) with emphasis on proper hand placement before standing. Total minutes of Exercise: 40 Manual Therapy: NA Total minutes of Manual Therapy: 0 HOME EXERCISE PROGRAM: seated LAQ's and hip flexion, and supine hip abd/ adduction and heel slides - Charges Timed Code Treatment Minutes: 40 Total Treatment Time: 50 Procedures billed for this date of service:: ex,ther act,gt Assessment: Patient requires more frequent rest periods today,reports increased leg soreness with standing.She requires more tactile/verbal cues to increase the step length on the R.As she fatigues ,she tends to shuffle the R foot to advance.Family member is taking her to the Dr. immediately after therapy. Patient Education: Body/Joint mechanics, Home Safety, Activity Modification Short Term Goals Goal #1: Pt independent and compliant in HEP. Goal to be met by: 04/26/18 Goal #2: Pt will demo. good safety with sit<>stand transfers in department. Goal to be met by: 04/26/18 Progress towards Goal:: No Change Goal #3: Pt to amb. with RW with CGA of one 60 feet, with good base of support. Goal to be met by: 04/26/18 Progress towards Goal:: Regressing Comments:: fatigues more easily today Mcfp Goals Goal #1: Pt knows HEP and to continue ex's to maintain functional level at D/C. Goal to be met by: 05/22/18 Goal #2: Score on Tinetti Assessment improved to 22/28. Goal to be met by: 05/22/18 Goal #3: Pt to amb. with RW household distances independently with good safety. Goal to be met by: 05/22/18 Goal #4: Pt to report no falls with mobility/ambulation. 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
--- NOTE | 2018-05-03 16:19 | RS.OPPTDN ---
Subjective Date of Note: 05/03/18 Visit #: 5 Number of visits approved by Insurance: 8-10 Medicare Date of Evaluation: 04/11/18 Payer Source: MEDICARE Treatment Diagnosis: Frequent falls, LE weakness, back pain Current Subjective/complaints:: Patient says she had a fall last night and nearly forgot to tell me. She says she was walking toward her chair and she turned to sit in it and slid down the wall onto her bottom. She denies need to seek treatment, but does say her legs and L shoulder are sore. She says she left her home and forgot to wear her soft collar and her sling. Interventions - Exercise/Activities/Manual Therapy Exercises/Activities: 40 mins. total for ex,ther.act,and gait training. Seated exercises with 1.5 # ,3/10 each of hip flexion ,LAQ's 1 1/2#, red tband ham curls, ball squeezes, shoulder shrugs, scap adduction, ball reach bilaterally UE holding at diagonals challenging ant/post lean x 5. Sit to stand with prompts to push off from chair arms and reaching back x 5. Gait training with rolling walker for 30' x 2 and CGA/min assist of 1. Patient stands at railing for alternate hip abd and heel raises. Total minutes of Exercise: 40 Manual Therapy: NA HOME EXERCISE PROGRAM: seated LAQ's and hip flexion, and supine hip abd/ adduction and heel slides - Charges Timed Code Treatment Minutes: 40 Total Treatment Time: 40 Procedures billed for this date of service:: ex, TA, GT Assessment: Patient presents without collar or sling for the L UE. She admits recent fall last night in which she was reaching for her chair and she slid down the wall and landed on her bottom. She denied need to seek medical attention, but attributes bilateral LE and L UE soreness to damp, cooler weather. She has difficulty with R foot placement with amb maintaining very little space between R and L foot and difficulty picking it up. She is cued often for proper placement and to space feet apart to prevent falls. Patient Education: Body/Joint mechanics, Home Exercise Program, Home Safety Short Term Goals Goal #1: Pt independent and compliant in HEP. Goal to be met by: 04/26/18 Comments:: unknown compliancy Goal #2: Pt will demo. good safety with sit<>stand transfers in department. Goal to be met by: 04/26/18 Progress towards Goal:: No Change Goal #3: Pt to amb. with RW with CGA of one 60 feet, with good base of support. Goal to be met by: 04/26/18 Progress towards Goal:: Regressing Skilled Nursing Goals Goal #1: Pt knows HEP and to continue ex's to maintain functional level at D/C. Goal to be met by: 05/22/18 Goal #2: Score on Tinetti Assessment improved to 22/28. Goal to be met by: 05/22/18 Goal #3: Pt to amb. with RW household distances independently with good safety. Goal to be met by: 05/22/18 Goal #4: Pt to report no falls with mobility/ambulation. 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 Reassess for continued need as falls are occuring more often.
== END 2018-05-08 23:59 ==
PROVIDERS: ATTEND Family Medicine
DX: R29.6 Repeated falls (principal); R29.898 Other symptoms and signs involving the musculoskeletal system; M47.26 Other spondylosis with radiculopathy, lumbar region

== ENCOUNTER 2018-05-17 18:42 | Emergency (ER) | payer OTHER ==
[2018-05-17 18:49] VITALS: BP 0/0; TEMP 97; BMI 21.7
--- NOTE | 2018-05-17 19:03 | ED.PDOC ---
General ED Provider: Dr. JESSICA HERRERA-ER Chief Complaint: Head Laceration Stated Complaint: she fell and cut her head Time Seen by Physician: 19:02 Mode of Arrival: Wheelchair Information Source: Patient, Family Exam Limitations: No limitations Primary Care Provider: MI CASTORENA Nursing and Triage Documentation Reviewed and Agree: Yes Does patient meet sepsis criteria?: No System Inflammatory Response Syndrome: Not Applicable Sepsis Protocol: For patient's 13 years and over: Temp is 96.8 and below OR 101 and greater Pulse >90 BPM Resp >20/minute Acutely Altered Mental Status Are patient's symptoms suggestive of a new infection, such as: -Pneumonia -Skin, Soft Tissue -Endocarditis -UTI -Bone, Joint Infection -Implantable Device -Acute Abdominal Infection -Wound Infection -Meningitis -Blood Stream Catheter Infection -Unknown Skin Complaint Exam - Laceration/Head/Facial Complaint/Exam Location of Injury: Scalp Mechanism of Injury: Laceration Onset/Duration: 30 min Symptoms Are: Still present Initial Severity: Mild Current Severity: Mild Aggravating: Movement Alleviating: Compression Associated Signs and Symptoms: Denies: Fever, Chills, Erythema, Numbness, Tingling Differential Diagnoses: Laceration Review of Systems - Review Of Systems Constitutional: Reports: No symptoms Eyes: Reports: No symptoms Ears, Nose, Mouth, Throat: Reports: No symptoms Respiratory: Reports: No symptoms Cardiac: Reports: No symptoms GI: Reports: No symptoms : Reports: No symptoms Musculoskeletal: Reports: No symptoms Skin: Reports: No symptoms Neurological: Reports: No symptoms Endocrine: Reports: No symptoms Hematologic/Lymphatic: Reports: No symptoms All Other Systems: Reviewed and Negative Past Medical History - Past Medical History Previously Healthy: Yes Endocrine: Reports: None Cardiovascular: Reports: None Respiratory: Reports: None Hematological: Reports: None Gastrointestinal: Reports: None Genitourinary: Reports: None Neuro/Psych: Reports: Migraine, Anxiety, Depression, Other (TIA/CVA affecting RLE) Musculoskeletal: Reports: Arthritis (chronic neck pain ), Back Pain Cancer: Reports: None Last Menstrual Period: n/a - Surgical History General Surgical History: Reports: Hysterectomy (1964), Appendectomy, Cholecystectomy, Tonsillectomy, Back Surgery - Family History Family History: Reports: None - Social History Smoking Status: Former smoker Hx Substance Use: Yes (marijuana) Alcohol Screening: None - Immunizations Tetanus Shot up to Date: Yes (THINKS LAST TIME SHE FELL) Physical Exam - Physical Exam Appearance: Well-appearing, No pain distress, Well-nourished Eyes: JAVIER, EOMI, Conjunctiva clear ENT: Ears normal, Nose normal, Oropharynx normal Neck: Supple Respiratory: Airway patent Cardiovascular: RRR, Pulses normal, No rub, No murmur GI/: Soft, Nontender, No masses, Bowel sounds normal, No Organomegaly Musculoskeletal: Normal strength, ROM intact, No edema, No calf tenderness Skin: Warm, Dry, Normal color Neurological: Sensation intact, Motor intact, Reflexes intact, Cranial nerves intact, Alert, Oriented Psychiatric: Affect appropriate, Mood appropriate Procedures - Laceration/Wound Repair No standard instances Wound Description: Linear Wound Length (cm): 1.5cm Wound Explored: Clean Wound Irrigated: No Wound Prep: Hibiclens Wound Repaired With: [place] (2) Number of [place]: 2 Layer Closure?: No Sterile Dressing Applied?: Yes Splint Applied?: No Sling Applied?: No Critical Care Note - Critical Care Note Total Time (mins): 0 Course - Course Vital Signs: Temp Pulse Resp BP Pulse Ox 05/17/18 18:43 97.0 F L 83 20 0/0 L 93 L Departure - Departure Time of Disposition: 19:04 Disposition: HOME SELF-CARE Discharge Problem: Laceration of scalp Qualifiers: Encounter type: initial encounter Qualified Code(s): S01.01XA - Laceration without foreign body of scalp, initial encounter Instructions: Laceration (ED), Staple Care (ED) Condition: Good Pt referred to PMD for follow-up: Yes IPMP verified?: No Additional Instructions: head injury instructions---cory out in 7 days--return if any signs of infection Allergies/Adverse Reactions: Allergies amoxicillin Adverse Reaction (Verified 05/17/18 18:49) Rash codeine Adverse Reaction (Verified 05/17/18 18:49) gets gas Home Medications: Ambulatory Orders Calcium Carb/Vitamin D3/Vit K1 [Calcium + D Soft Chewable Tab] 1 each PO BID 02/22 Calcium Polycarbophil [Fiber Tabs] 500 mg PO TID 06/15/17 Multivitamin [Multi-Day Vitamins] 1 each PO DAILY 06/15/17 Duloxetine HCl [Cymbalta] 60 mg PO DAILY 02/05/18 Potassium 99 mg PO DAILY 03/29/18 Disposition Discussed With: Patient, Family
== END 2018-05-17 19:08 | disposition home or self-care (01) ==
LOC: ED 18:42
DX: S01.01XA Laceration without foreign body of scalp, initial encounter (principal); W19.XXXA Unspecified fall, initial encounter
CPT/HCPCS: 99282

== ENCOUNTER 2018-07-05 16:15 | Emergency (ER) ==
[2018-07-05 16:22] VITALS: BP 114/74; TEMP 97.6; BMI 23.0
--- NOTE | 2018-07-05 16:47 | ED.PDOC ---
General ED Provider: Dr. MAIDA DAVILA Chief Complaint: Head Injury Stated Complaint: head injury due to tripping incident , no loc Time Seen by Physician: 16:20 (no loc daly present at all times see all photos befora and after ) Mode of Arrival: Wheelchair Information Source: Patient, Family Exam Limitations: No limitations Primary Care Provider: MI CASTORENA Nursing and Triage Documentation Reviewed and Agree: Yes Does patient meet sepsis criteria?: No System Inflammatory Response Syndrome: Not Applicable Sepsis Protocol: For patient's 13 years and over: Temp is 96.8 and below OR 101 and greater Pulse >90 BPM Resp >20/minute Acutely Altered Mental Status Are patient's symptoms suggestive of a new infection, such as: -Pneumonia -Skin, Soft Tissue -Endocarditis -UTI -Bone, Joint Infection -Implantable Device -Acute Abdominal Infection -Wound Infection -Meningitis -Blood Stream Catheter Infection -Unknown Trauma/Injury Complaint Exam - Head Injury Complaint/Exam Location of Pain: Reports: Scalp Mechanism of Injury: Reports: Trauma Onset/Duration: 1 hr ago Symptoms Are: Still present Initial Severity: Mild Current Severity: Mild Character: Reports: Dull Aggravating: Reports: None Alleviating: Reports: None Associated Signs and Symptoms: Denies: Confusion, Memory loss, Seizure, Epistaxis, Dental malocclusion, Neck pain, Nausea, Vomiting Loss of Consciousness: None SDH Risk Factors: Present: Elderly Cervical Spine Injury Risk Factors: Present: None Related Surgical History: Reports: None C-Collar in Place: no Backboard in Place: no Head Injury Findings: Absent: Hemotympanum (post scalp lac see photos) Glascow Coma Scale (see protocol): 15 Focal Weakness: Present: None Focal Sensory Loss: Present: None Gait: Normal Babinski Sign: Negative Right, Negative Left Nexus Low Risk Criteria: No post-midline CS tender, No evidence of intoxicat., No Altered LOC, No focal neuro deficit, No distracting injuries Review of Systems - Review Of Systems Constitutional: Reports: No symptoms Eyes: Reports: No symptoms Ears, Nose, Mouth, Throat: Reports: No symptoms Respiratory: Reports: No symptoms Cardiac: Reports: No symptoms GI: Reports: No symptoms : Reports: No symptoms Musculoskeletal: Reports: No symptoms Skin: Reports: Other (laceration) Neurological: Reports: No symptoms Endocrine: Reports: No symptoms Hematologic/Lymphatic: Reports: No symptoms All Other Systems: Reviewed and Negative Past Medical History - Past Medical History Previously Healthy: Yes Endocrine: Reports: None Cardiovascular: Reports: None Respiratory: Reports: None Hematological: Reports: None Gastrointestinal: Reports: None Genitourinary: Reports: None Neuro/Psych: Reports: Migraine, Anxiety, Depression, Other (TIA/CVA affecting RLE) Musculoskeletal: Reports: Arthritis (chronic neck pain ), Back Pain Cancer: Reports: None Last Menstrual Period: menopause - Surgical History General Surgical History: Reports: Hysterectomy (1964), Appendectomy, Cholecystectomy, Tonsillectomy, Back Surgery - Family History Family History: Reports: None - Social History Smoking Status: Former smoker Hx Substance Use: Yes (marijuana) Alcohol Screening: None - Immunizations Tetanus Shot up to Date: (unknown) Physical Exam - Physical Exam Appearance: Well-appearing, No pain distress, Well-nourished Eyes: JAVIER, EOMI, Conjunctiva clear ENT: Ears normal, Nose normal, Oropharynx normal Respiratory: Airway patent, Breath sounds clear, Breath sounds equal, Respirations nonlabored Cardiovascular: RRR, Pulses normal, No rub, No murmur GI/: Soft, Nontender, No masses, Bowel sounds normal, No Organomegaly Musculoskeletal: Normal strength, ROM intact, No edema, No calf tenderness Skin: Warm, Dry (1cmn laceration post scalp) Neurological: Sensation intact, Motor intact, Reflexes intact, Cranial nerves intact, Alert, Oriented Psychiatric: Affect appropriate, Mood appropriate Interpretation - Radiology Interpretation Radiology Interpretation By: Radiologist Radiology Results: No acute changes Exam Interpreted: CT Scan (head ) Procedures - Laceration/Wound Repair No standard instances Wound Description: Linear Wound Length (cm): 1cm Wound Width: 3mm Wound Depth: 2mm Wound Explored: Clean Wound Irrigated: No Wound Prep: Betadine Undermining: Minimal Wound Margins: Revised, [place] border aligned Wound Repaired With: Cesar Number of Cesar: 7 Layer Closure?: No Critical Care Note - Critical Care Note Total Time (mins): 0 Course - Course Orders, Labs, Meds: Orders Category Date Time Status CT CERVICAL SPINE W/O CONTRAST Stat RADS 07/05/18 16:[address] HEAD W/O CONTRAST Stat RADS 07/05/18 16:44 Completed Vital Signs: Temp Pulse Resp BP Pulse Ox 07/05/18 16:16 97.6 F 75 20 114/74 95 Departure - Departure Time of Disposition: 18:00 Disposition: HOME SELF-CARE Discharge Problem: Injury of head Scalp laceration Qualifiers: Encounter type: initial encounter Qualified Code(s): S01.01XA - Laceration without foreign body of scalp, initial encounter Instructions: Laceration (ED), Head Injury (ED) Condition: Good Pt referred to PMD for follow-up: Yes IPMP verified?: No Additional Instructions: Please call your Family Physician as soon as possible to schedule a follow-up appointment. Allergies/Adverse Reactions: Allergies amoxicillin Adverse Reaction (Verified 07/05/18 16:23) Rash codeine Adverse Reaction (Verified 07/05/18 16:23) gets gas Home Medications: Ambulatory Orders Calcium Carb/Vitamin D3/Vit K1 [Calcium + D Soft Chewable Tab] 1 each PO BID 02/22 Calcium Polycarbophil [Fiber Tabs] 500 mg PO TID 06/15/17 Multivitamin [Multi-Day Vitamins] 1 each PO DAILY 06/15/17 Potassium 99 mg PO DAILY 03/29/18 Disposition Discussed With: Patient
--- NOTE | 2018-07-05 17:32 | CT ---
EXAM: CT brain without contrast HISTORY: Fall TECHNIQUE: CT of the brain without intravenous contrast FINDINGS: There is no acute hemorrhage midline shift or mass effect. No hydrocephalus or abnormal e xtra-axial fluid collection. Generalized involutional atrophy, moderate. Chronic microvascular hutchison ges white matter tracts, severe. No acute large vessel territorial infarct is seen. The bony craniu m appears normal. The visualized paranasal sinuses are clear. The right posterior scalp skin staple line. No underlying bony abnormality. IMPRESSION: 1. Chronic changes as described. No acute intracranial abnormality is seen.
--- NOTE | 2018-07-05 17:36 | CT ---
CT cervical spine without contrast HISTORY: Fall TECHNIQUE: CT of the cervical spine with multiplanar reformations. FINDINGS: Vertebral body height is maintained. Degenerative anterior listhesis of C3 measuring 3 mm . Generally normal alignment otherwise. Bone on bone disc space narrowing at C4-5, C5-6 and C6-7.. Posterior and anterior endplate spondylosis at the same levels with generally mild to moderate centra l canal narrowing. Multilevel varying severity foraminal narrowing. No fracture seen on the axial o r reformatted images. Probable prior projectile injury with metallic debris in the neck. Lung apices are clear. IMPRESSION: No acute findings in the cervical spine.
== END 2018-07-05 17:40 | disposition home or self-care (01) ==
LOC: ED 16:15
DX: S01.01XA Laceration without foreign body of scalp, initial encounter (principal); W01.10XA Fall on same level from slipping, tripping and stumbling with subsequent striking against unspecified object, initial encounter
CPT/HCPCS: 99283

== ENCOUNTER 2018-07-19 11:13 | Outpatient (RCR) | payer OTHER | END 2018-08-08 23:59 | disposition short-term general hospital (02) | PROVIDERS: ATTEND Nurse Practitioner Family | DX: I95.1 Orthostatic hypotension (principal); R26.9 Unspecified abnormalities of gait and mobility ==

== ENCOUNTER 2018-09-19 18:45 | Emergency (ER) | payer OTHER ==
[2018-09-19 18:46] VITALS: BMI 23.0
[2018-09-19 18:49] VITALS: BP 120/82; TEMP 97.9
[2018-09-19] MEDS ORDERED: VALTREX PO STA (19:43)
[2018-09-19] MEDS ORDERED: ZOFRAN ODT PO STA (19:43)
[2018-09-19] MEDS ORDERED: MORPHINE 4 MG/ML SYRINGE IM STA (19:43)
--- NOTE | 2018-09-19 19:51 | ED.PDOC ---
General ED Provider: Dr. SHARMILA MANLEY Chief Complaint: Rash Stated Complaint: Patient is a 78 year old who comes to the ER with one day history of left mid Chest /lower breast area Vessicular rash that extends to the back but not crossing the midline. States that the pain is very severe and had used hydrocodone at home without relief. Denies any fever. Time Seen by Physician: 19:44 Mode of Arrival: Wheelchair Information Source: Patient Exam Limitations: No limitations Primary Care Provider: MI CASTORENA Nursing and Triage Documentation Reviewed and Agree: Yes Does patient meet sepsis criteria?: No System Inflammatory Response Syndrome: Not Applicable Sepsis Protocol: For patient's 13 years and over: Temp is 96.8 and below OR 101 and greater Pulse >90 BPM Resp >20/minute Acutely Altered Mental Status Are patient's symptoms suggestive of a new infection, such as: -Pneumonia -Skin, Soft Tissue -Endocarditis -UTI -Bone, Joint Infection -Implantable Device -Acute Abdominal Infection -Wound Infection -Meningitis -Blood Stream Catheter Infection -Unknown Skin Complaint Exam - Skin Rash/Itching Complaint/Exam Onset/Duration: 1 day Symptoms Are: Still present Initial Severity: Moderate Current Severity: Moderate Location: Left chest/back rash Potential Exposures: Denies: Food, Medicines, Plants, Pet exposure, Insect bite , Mites, Scabies Aggravating: Reports: None Alleviating: Reports: None Associated Signs and Symptoms: Denies: Difficulty breathing, Fever, Chills Skin Findings: Present: Vesicles Body Picture: 1 - vesicular rash 2 - vesicular rash Differential Diagnoses: Varicella Zoster, Viral Exanthema Review of Systems - Review Of Systems Constitutional: Reports: No symptoms Eyes: Reports: No symptoms Ears, Nose, Mouth, Throat: Reports: No symptoms Respiratory: Reports: No symptoms Cardiac: Reports: Chest pain (chest wall pain ) GI: Reports: No symptoms : Reports: No symptoms Musculoskeletal: Reports: Back pain Skin: Reports: Rash Neurological: Reports: Anxiety Endocrine: Reports: No symptoms Hematologic/Lymphatic: Reports: No symptoms All Other Systems: Reviewed and Negative Past Medical History - Past Medical History Previously Healthy: Yes Endocrine: Reports: None Cardiovascular: Reports: None Respiratory: Reports: None Hematological: Reports: None Gastrointestinal: Reports: None Genitourinary: Reports: None Neuro/Psych: Reports: Migraine, Anxiety, Depression, Other (TIA/CVA affecting RLE) Musculoskeletal: Reports: Arthritis (chronic neck pain ), Back Pain Cancer: Reports: None Last Menstrual Period: n/a - Surgical History General Surgical History: Reports: Hysterectomy (1965), Appendectomy, Cholecystectomy, Tonsillectomy, Back Surgery - Family History Family History: Reports: None - Social History Smoking Status: Former smoker Hx Substance Use: Yes (marijuana) Alcohol Screening: None Physical Exam - Physical Exam Appearance: Ill-appearing Ill-appearing: Mild Pain Distress: Severe Neck: Supple Respiratory: Airway patent, Breath sounds clear, Breath sounds equal, Respirations nonlabored Cardiovascular: RRR GI/: Soft, Nontender, No masses, Bowel sounds normal, No Organomegaly Skin: Warm, Dry Neurological: Alert, Oriented Psychiatric: Anxious Re-Evaluation - Re-Evaluation Time of Re-Evaluation: 19:50 Status: Improved Vital Signs Stable: Yes Pain Level: bryyrt Appearance: NAD Lungs: Clear Critical Care Note - Critical Care Note Total Time (mins): 0 Course - Course Orders, Labs, Meds: Orders Category Date Time Status Morphine Sulfate [Morphine 4 mg/ml Syringe] MEDS 09/19/18 19:43 Discontinued 4 mg IM ONCE STA Ondansetron [Zofran Odt] MEDS 09/19/18 19:43 Discontinued 4 mg PO ONCE STA Medications Discontinued Medications Generic Name Dose Route Start Last Admin Trade Name Freq PRN Reason Stop Dose Admin Morphine Sulfate 4 mg 09/19/18 19:43 09/19/18 19:56 Morphine 4 Mg/Ml Syringe IM 09/19/18 19:44 4 mg ONCE STA Administration Ondansetron HCl 4 mg 09/19/18 19:43 09/19/18 19:55 Zofran Odt PO 09/19/18 19:44 4 mg ONCE STA Administration Vital Signs: Temp Pulse Resp BP Pulse Ox 09/19/18 18:46 97.9 F 105 H 20 120/82 94 L Departure - Departure Time of Disposition: 19:52 Disposition: HOME SELF-CARE Discharge Problem: Herpes zoster dermatitis Instructions: Shingles (ED) Condition: Fair Pt referred to PMD for follow-up: Yes IPMP verified?: No Additional Instructions: Take medications as prescribed Follow up with Your PCP in 2-3 days Prescriptions: Acyclovir 800 mg PO 5XD #35 tablet Oxycodone-Acetaminophen 5-325 [Percocet 5-325] 1 tab PO Q4H #30 tablet Allergies/Adverse Reactions: Allergies amoxicillin Adverse Reaction (Verified 09/19/18 18:49) Rash codeine Adverse Reaction (Verified 09/19/18 18:49) gets gas Home Medications: Ambulatory Orders Calcium Polycarbophil [Fiber Tabs] 500 mg PO TID 06/15/17 Multivitamin [Multi-Day Vitamins] 1 each PO DAILY 06/15/17 Potassium 99 mg PO DAILY 03/29/18 Acyclovir 800 mg PO 5XD #35 tablet 09/19/18 Ca/D3/Mag Ox/Zinc/Lab Nurse/Devin/Bor [Calcium 600+D3 Plus Caplet] 1 each PO DAILY Cyclobenzaprine HCl [Flexeril] 20 mg PO BID 09/19/18 Oxycodone-Acetaminophen 5-325 [Percocet 5-325] 1 tab PO Q4H #30 tablet 09/19/18 Disposition Discussed With: Patient, Family
== END 2018-09-19 20:35 | disposition home or self-care (01) ==
LOC: ED 18:45
DX: B02.9 Zoster without complications (principal)
CPT/HCPCS: 96372; 99282

== ENCOUNTER 2018-11-28 13:30 | Outpatient (CLI) | END 2018-11-28 13:31 | disposition home or self-care (01) | LOC: LAB 13:30 | PROVIDERS: ATTEND Nurse Practitioner Family | DX: R53.1 Weakness (principal); I10 Essential (primary) hypertension; R30.0 Dysuria; Z51.81 Encounter for therapeutic drug level monitoring; Z79.899 Other long term (current) drug therapy | CPT/HCPCS: 36415; 80053; 80306; 81001; 84443; 85025; 87086; 87186 ==

== ENCOUNTER 2019-03-18 16:16 | Outpatient (CLI) | END 2019-03-18 16:17 | disposition home or self-care (01) | LOC: RHC-LAB 16:16 → FCC-LAB 16:17 | PROVIDERS: ATTEND Family Medicine | DX: D64.9 Anemia, unspecified (principal) | CPT/HCPCS: 36415; 80053; 82607; 85025 ==

== ENCOUNTER 2022-03-20 17:16 | Inpatient (IN) ==
[2022-03-20] MEDS ORDERED: SODIUM CHLORIDE 1,000 ML IV STA (19:35)
--- NOTE | 2022-03-20 19:37 | ED.PDOC ---
General ED Provider: Dr. MI LANDAVERDE MD Chief Complaint: Non-specific Complaint Stated Complaint: Patient was ill with diarrhea and fever last week. These symptoms have resolved. She presents now with generalized weakness, anorexia, poor appetite and decreased activity. Time Seen by Provider: 03/20/22 19:37 Mode of Arrival: Wheelchair Information Source: Patient and Family Primary Care Provider: TREVER POST MD Nursing and Triage Documentation Reviewed and Agree: Yes Does patient meet sepsis criteria?: No System Inflammatory Response Syndrome: Not Applicable Sepsis Protocol: For patient's 13 years and over: Temp is 96.8 and below OR 101 and greater Pulse >90 BPM Resp >20/minute Acutely Altered Mental Status Are patient's symptoms suggestive of a new infection, such as: -Pneumonia -Skin, Soft Tissue -Endocarditis -UTI -Bone, Joint Infection -Implantable Device -Acute Abdominal Infection -Wound Infection -Meningitis -Blood Stream Catheter Infection -Unknown GI Complaint Exam Abdominal Pain Complaint/Exam Onset: Gradual Duration: several days; nausea, emesis and diarrhea Symptoms Are: Resolved Associated Signs and Symptoms: Reports Decreased appetite AAA Risk Factors: Reports None Cardiac Risk Factors: Reports None Surgical Obstruction Risk Factors: Reports None Related Surgical History: Reports None Abdominal Findings: Present None Review of Systems Review Of Systems Constitutional: Reports Weakness, Loss of appetite and Other (decreased activity) Eyes: Reports No symptoms Ears, Nose, Mouth, Throat: Reports No symptoms Respiratory: Reports No symptoms Cardiac: Reports No symptoms GI: Reports No symptoms : Reports No symptoms Musculoskeletal: Reports No symptoms Skin: Reports No symptoms Neurological: Reports No symptoms Endocrine: Reports No symptoms Hematologic/Lymphatic: Reports No symptoms All Other Systems: Reviewed and Negative COUNTS INCLUDE 234 BEDS AT THE [facility] Medical History Arthritis Cerebrovascular accident Cervical spine fracture Chronic obstructive pulmonary disease DJD (degenerative joint disease) Gastroesophageal reflux disease Hyperlipidemia Internal hemorrhoids without complication Family History Mother Hyperlipidemia Cerebrovascular accident Hypertension Social History Smoking and tobacco status: Never smoker Alcohol intake: never Substance use type: does not use Kayla/anabaptism: Baptit Special kayla needs: No Agree to transfusion: Yes Adopted: No Caregiver/support person: No Foster care: No Household members: family and children Housing: house Lives independently: Yes Daycare: family member Number of children: 3 Highest education level completed: some college, no degree Financial difficulty paying for basics: not very hard service: No MCFP: No Current occupational status: retired Pets and animals: Yes Leisure activites: reading History of recent travel: No Sexually active: No Do you think of yourself as: straight/heterosexual Current gender identity: female Seatbelt use: always Helmet use: No Drives intoxicated or rides with intoxicated 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 Water heater temperature set < 120 degrees: Yes Working smoke detector in home: Yes Fire extinguisher in home: Yes Carbon monoxide detector in home: Yes Firearms in home: Yes Firearms unloaded and locked: Yes Surgical History History of musculoskeletal system surgery Status post appendectomy Status post cholecystectomy Status post hysterectomy Status post tonsillectomy Status post tonsillectomy and adenoidectomy Female Reproductive History Menstrual Hx Hysterectomy: Yes Hx Tubal Ligation: No Physical Exam Physical Exam Appearance: Reports Ill-appearing and Other (Pleasant elderly female who appears to be somewhat weak. She is alert and in NAD.) Ill-appearing: Mild Pain Distress: None Eyes: Reports JAVIER and EOMI ENT: Reports Nose normal and Oropharynx normal Neck: Supple Respiratory: Reports Airway patent, Breath sounds clear and Breath sounds equal Cardiovascular: Reports RRR, No rub and No murmur GI/: Reports Soft, Nontender, No masses and Bowel sounds normal Musculoskeletal: Reports No edema Skin: Reports Warm, Dry and Normal color Neurological: Reports Sensation intact, Motor intact and Alert Psychiatric: Reports Affect appropriate and Mood appropriate Critical Care Note Critical Care Note Total Critical Care Time (mins): 0 Course Course Hematology/Chemistry: 03/20/22 19:43 03/20/22 19:43 Orders, Labs, Meds: Lab Review 03/20/22 03/20/22 19:43 19:43 WBC 16.12 H RBC 4.28 Hgb 13.2 Hct 41.7 MCV 97.4 MCH 30.8 MCHC 31.7 L RDW Coeff of Ella 13.4 Plt Count 577 H Immature Gran % (Auto) 1.1 Neut % (Auto) 80.6 H Lymph % (Auto) 10.7 Porter % (Auto) 6.3 Eos % (Auto) 0.9 Baso % (Auto) 0.4 Neut # (Auto) 13.0 H Lymph # (Auto) 1.7 Porter # (Auto) 1.0 Eos # (Auto) 0.1 Baso # (Auto) 0.1 Immature Gran # (Auto) 0.2 Sodium 136.3 Potassium 2.71 L* Chloride 94.5 L Carbon Dioxide 34.3 H Anion Gap 10.21 BUN 20.6 H Creatinine 1.16 Estimated GFR (MDRD) 45.00 BUN/Creatinine Ratio 17.75 Glucose 147.1 H Calcium 8.74 Total Bilirubin 0.64 AST 38.8 H ALT 13.8 Alkaline Phosphatase 108.9 Total Protein 7.38 Albumin 3.47 L Globulin 3.91 Albumin/Globulin Ratio 0.88 Orders Category Date Time Status Saline Lock [ED IV/MEDIPORT/POWERPORT] .ONCE EMERGENCY 03/20/22 19:35 Active CBC W/ AUTO DIFF Stat LAB 03/20/22 19:43 Completed CMP [COMPREHENSIVE METABOLIC PANEL] Stat LAB 03/20/22 19:43 Completed URINALYSIS C & S IF INDICATED Stat LAB 03/20/22 19:35 Uncollected 0.9 % Sodium Chloride [Saline Flush] MEDS 03/20/22 19:35 Active 1 syr IVF PRN PRN Sodium Chloride 0.9% [Sodium Chloride] 1,000 ml MEDS 03/20/22 19:35 Active IV BOLUS Medications Generic Name Dose Route Start Last Admin Trade Name Freq PRN Reason Stop Dose Admin Sodium Chloride 1,000 mls @ 1,000 mls/hr 03/20/22 19:35 03/20/22 20:05 Sodium Chloride IV 03/20/22 20:34 1,000 mls/hr BOLUS STA Administration Sodium Chloride 1 syr 03/20/22 19:35 0.9% Sodium Chloride 10 Ml Disp.Syrin IVF PRN PRN To flush IV Vital Signs: Temp Pulse Resp BP Pulse Ox 03/20/22 17:16 97.5 F L 81 16 112/75 98 Discharge Plan Discharge Patient Disposition: ADMITTED INPATIENT Discharge Problem: Generalized weakness, Acute hypokalemia, Poor appetite Prescriptions: No Action calcium polycarbophil [Fiber-Tabs] 625 MG tablet 500 mg PO TID multivitamin [Multi-Day] 1 EACH tablet 1 ea PO DAILY gabapentin 100 MG capsule 100 mg PO BID 30 Days Qty: 60 1RF Rx Instructions: for shingles related pain duloxetine [Cymbalta] 30 mg capsule,delayed release(DR/EC) 60 mg PO DAILY 30 Days Qty: 60 1RF Rx Instructions: 1 tablet daily atorvastatin 20 mg tablet 20 mg PO DAILY 90 Days Qty: 90 3RF Rx Instructions: 1 tablet daily donepezil [Aricept] 5 mg tablet 5 mg PO QDAY Qty: 30 3RF hydrocodone-acetaminophen 5-325 mg tablet 1 tab PO BID PRN (Reason: back) Qty: 60 0RF clopidogrel [Plavix] 75 mg tablet 75 mg PO DAILY 90 Days Qty: 90 2RF potassium 99 MG tablet 99 mg PO DAILY Ca-D3-mag [id number] [Calcium 600-D3 Plus (mag-zinc)] 1 EACH tablet 1 ea PO DAILY docusate sodium [Colace] 100 mg capsule 100 mg PO QDAY Did you review [place] SENIOR MANUFACTURING TECHNICIAN?: Not Applicable ED Provider: MI LANDAVERDE Condition: Fair Physician Progress Note: []
[2022-03-20 19:48] LABS: BASOPHILS # (AUTO) 0.1 K/uL (0-0.2); BASOPHILS % (AUTO) 0.4 % (0.0-3.0); EOSINOPHILS # (AUTO) 0.1 K/ul (0.0-0.7); EOSINOPHILS % (AUTO) 0.9 % (0.0-7.0); HEMATOCRIT 41.7 % (37.0-47.0); HEMOGLOBIN 13.2 g/dl (12.0-16.0); IMMATURE GRANULOCYTE # (AUTO) 0.2 (0.0-1.0); IMMATURE GRANULOCYTE % (AUTO) 1.1 % (0.0-5.0); LYMPHOCYTES # (AUTO) 1.7 K/uL (0.60-3.4); LYMPHOCYTES % (AUTO) 10.7 (10.0-50.0); MEAN CORPUSCULAR HEMOGLOBIN 30.8 pg (27.0-31.0); MEAN CORPUSCULAR HGB CONC 31.7 (31.8-35.4); MEAN CORPUSCULAR VOLUME 97.4 fl (81.0-99.0); MONOCYTES % (AUTO) 6.3 (0-10); NEUTROPHILS % (AUTO) 80.6 % (42.2-75.2); PLATELET COUNT 577 10^3/uL (140-440); RDW COEFFICIENT OF VARIATION 13.4 % (11.6-14.8); RED BLOOD COUNT 4.28 10^6/ul (4.20-5.40); WHITE BLOOD COUNT 16.12 K/ul (4.6-10.2)
[2022-03-20 20:00] LABS: ALANINE AMINOTRANSFERASE 13.8 U/L (0-35); ALBUMIN 3.47 g/dL (3.5-5.0); ALKALINE PHOSPHATASE 108.9 U/L (53-141); ASPARTATE AMINO TRANSFERASE 38.8 U/L (14-36); BILIRUBIN,TOTAL 0.64 mg/dL (0.2-1.3); BLOOD UREA NITROGEN 20.6 mg/dL (7-17); CALCIUM 8.74 mg/dL (8.4-10.2); CARBON DIOXIDE 34.3 mmol/L (22-30.0); CHLORIDE 94.5 mmol/L (98-107); CREATININE 1.16 mg/dL (0.60-1.30); GLUCOSE 147.1 mg/dL (74-106); SODIUM 136.3 mmol/L (134.5-145); TOTAL PROTEIN 7.38 g/dL (6.3-8.2)
[2022-03-20 20:05] LABS: POTASSIUM 2.71 mmol/L (3.5-5.1)
[2022-03-20] MEDS ORDERED: K-DUR PO ONE (20:47)
--- NOTE | 2022-03-20 20:54 | PCM ---
Chief Complaint Chief Complaint: generalized weakness, poor appetite, decreased activity History of Present Illness History of Present Illness: Patient was ill one week ago with fever, nausea and diarrhea. Those symptoms have resolved. She presents now with generalized weakness, decreased activity and poor appetite. Denies fever, chills, nausea, emesis, abdominal pain, hematemesis, melena, diarrhea, constipation, hematochezia or urinary tract symptoms. Review of Systems Constitutional: Reports Weakness, Loss of appetite and Other (decreased physical activity) Eyes: Reports No symptoms Ears: Reports No symptoms Nose: Reports No symptoms Throat: Reports No symptoms Mouth: Reports No symptoms Respiratory: Reports No symptoms Cardiovascular: Reports No symptoms Gastrointestinal: Reports No symptoms Genitourinary: Reports No symptoms Neurological: Reports No symptoms Musculoskeletal: Reports No symptoms Skin: Reports No symptoms Immunology: Reports No symptoms Hematology: Reports No symptoms Endocrine: Reports No symptoms Psychiatric: Reports No symptoms Habits: Reports Tobacco use Allergies Allergies Allergy/AdvReac Type Severity Reaction Status Date / Time amoxicillin AdvReac Rash Verified 03/10/22 13:25 codeine AdvReac GI issues Verified 03/10/22 13:25 PFSH Medical History Arthritis Cerebrovascular accident Cervical spine fracture Chronic obstructive pulmonary disease DJD (degenerative joint disease) Gastroesophageal reflux disease Hyperlipidemia Internal hemorrhoids without complication Surgical History History of musculoskeletal system surgery Status post appendectomy Status post cholecystectomy Status post hysterectomy Status post tonsillectomy Status post tonsillectomy and adenoidectomy Family History Mother Hyperlipidemia Cerebrovascular accident Hypertension Social History Smoking and tobacco status: Never smoker Alcohol intake: never Substance use type: does not use Kayla/restoration: Baptit Special kayla needs: No Agree to transfusion: Yes Adopted: No Caregiver/support person: No Foster care: No Household members: family and children Housing: house Lives independently: Yes Daycare: family member Number of children: 3 Highest education level completed: some college, no degree Financial difficulty paying for basics: not very hard service: No CHCF: No Current occupational status: retired Pets and animals: Yes Leisure activites: reading History of recent travel: No Sexually active: No Do you think of yourself as: straight/heterosexual Current gender identity: female Seatbelt use: always Helmet use: No Drives intoxicated or rides with intoxicated vacuum truck driver: No Water heater temperature set < 120 degrees: Yes Working smoke detector in home: Yes Fire extinguisher in home: Yes Carbon monoxide detector in home: Yes Firearms in home: Yes Firearms unloaded and locked: Yes Medications Medications: Medications Generic Name Dose Route Start Last Admin Trade Name Freq PRN Reason Stop Dose Admin Sodium Chloride 1 syr 03/20/22 19:35 0.9% Sodium Chloride 10 Ml Disp.Syrin IVF PRN PRN To flush IV Body Composition Height: 5 ft 2 in Weight: 65.771 kg Body Mass Index (BMI): 26.5 Vital Signs Temperature: 97.5 F Pulse Rate: 81 Respiratory Rate: 16 Blood Pressure: 112/75 O2 Sat by Pulse Oximetry: 98 Physical Examination Appearance: Reports Ill-appearing (Patient appears to be both chronically and acutely ill. ), No pain distress, Well-nourished, Thin and Other (She is alert and oriented.) Ill-appearing: Moderate Pain Distress: None Eyes: Reports JAVIER, EOMI and Conjunctiva clear ENT: Reports Nose normal, Oropharynx normal and Dry mucosa Neck: Supple Respiratory: Reports Airway patent, Breath sounds clear and Breath sounds equal Cardiovascular: Reports RRR, No rub and No murmur GI/: Reports Soft, Nontender, No masses and Bowel sounds normal Musculoskeletal: Reports Normal strength, ROM intact and No edema Skin: Reports Warm, Dry and Normal color Neurological: Reports Sensation intact, Motor intact and Alert Psychiatric: Reports Affect appropriate and Mood appropriate Lab/Tests/Diagnostic Imaging Lab/Tests/Diagnostic Imaging: Lab Review 03/20/22 03/20/22 19:43 19:43 WBC 16.12 H RBC 4.28 Hgb 13.2 Hct 41.7 MCV 97.4 MCH 30.8 MCHC 31.7 L RDW Coeff of Ella 13.4 Plt Count 577 H Immature Gran % (Auto) 1.1 Neut % (Auto) 80.6 H Lymph % (Auto) 10.7 Wilson % (Auto) 6.3 Eos % (Auto) 0.9 Baso % (Auto) 0.4 Neut # (Auto) 13.0 H Lymph # (Auto) 1.7 Wilson # (Auto) 1.0 Eos # (Auto) 0.1 Baso # (Auto) 0.1 Immature Gran # (Auto) 0.2 Sodium 136.3 Potassium 2.71 L* Chloride 94.5 L Carbon Dioxide 34.3 H Anion Gap 10.21 BUN 20.6 H Creatinine 1.16 Estimated GFR (MDRD) 45.00 BUN/Creatinine Ratio 17.75 Glucose 147.1 H Calcium 8.74 Total Bilirubin 0.64 AST 38.8 H ALT 13.8 Alkaline Phosphatase 108.9 Total Protein 7.38 Albumin 3.47 L Globulin 3.91 Albumin/Globulin Ratio 0.88 Orders Category Date Time Status [facility] ADMISSION 03/20/22 20:41 Ordered ACTIVITY .Up With Assistance CARE 03/20/22 20:41 Ordered INTAKE & OUTPUT Q8HR CARE 03/20/22 20:41 Ordered IP: INSERT SALINE LOCK ONCE CARE 03/20/22 20:41 Ordered TELEMETRY MONITORING TELE CARE 03/20/22 20:41 Ordered VITAL SIGNS Q8HR CARE 03/20/22 20:41 Ordered REGULAR DIET DIETARY 03/20/22 Breakfast Ordered Saline Lock [ED IV/MEDIPORT/POWERPORT] .ONCE EMERGENCY 03/20/22 19:35 Active CBC W/ AUTO DIFF DAILY@0600 LAB 03/21/22 06:00 Ordered CBC W/ AUTO DIFF DAILY@0600 LAB 03/22/22 06:00 Ordered CBC W/ AUTO DIFF Stat LAB 03/20/22 19:43 Completed CMP [COMPREHENSIVE METABOLIC PANEL] Stat LAB 03/20/22 19:43 Completed COMPREHENSIVE METABOLIC PANEL DAILY@0600 LAB 03/21/22 06:00 Ordered COMPREHENSIVE METABOLIC PANEL DAILY@0600 LAB 03/22/22 06:00 Ordered SARS COV-2 RNA RAPID MARLENE Stat LAB 03/20/22 Ordered URINALYSIS C & S IF INDICATED Stat LAB 03/20/22 19:35 Uncollected 0.9 % Sodium Chloride [Saline Flush] MEDS 03/20/22 19:35 Active 1 syr IVF PRN PRN Potassium Chloride [K-Dur] MEDS 03/20/22 20:47 Once 40 meq PO ONCE ONE Potassium Chloride/D5-0.9%NaCl [D5%-Ns-KCl 20 Meq/l IV MEDS 03/20/22 21:00 Ordered Janet] 1,000 ml IV 100 mls/hr Sodium Chloride 0.9% [Sodium Chloride] 1,000 ml MEDS 03/20/22 19:35 Discontinued IV BOLUS RESUSCITATION STATUS Routine OTHERS 03/20/22 20:41 Ordered Medications Generic Name Dose Route Start Last Admin Trade Name Freq PRN Reason Stop Dose Admin Sodium Chloride 1 syr 03/20/22 19:35 0.9% Sodium Chloride 10 Ml Disp.Syrin IVF PRN PRN To flush IV Discontinued Medications Generic Name Dose Route Start Last Admin Trade Name Freq PRN Reason Stop Dose Admin Sodium Chloride 1,000 mls @ 1,000 mls/hr 03/20/22 19:35 03/20/22 20:05 Sodium Chloride IV 03/20/22 20:34 1,000 mls/hr BOLUS STA Administration Assessment (1) Generalized weakness: Status: Acute Code(s): R53.1 - Weakness SNOMED Code(s): 77098438 (2) Poor appetite: Status: Acute Code(s): R63.0 - Anorexia SNOMED Code(s): 63646603 (3) Acute hypokalemia: Status: Acute Code(s): E87.6 - Hypokalemia SNOMED Code(s): 46062108 Plan Plan: IV fluid hydration and replacement of potassium. PT and OT to see.
[2022-03-20] MEDS ORDERED: D5%-NS-KCL 20 MEQ/L IV SOL 1,000 ML IV SCH (21:00)
[2022-03-21] MEDS: D5%-NS-KCL 40 MEQ/L IV SOL 1,000 ML IV SCH ×3 (00:07→20:35)
[2022-03-21 00:34] VITALS: BMI 22.8
[2022-03-21 04:50] LABS: BASOPHILS % (AUTO) 0.3 % (0.0-3.0); EOSINOPHILS # (AUTO) 0.2 K/ul (0.0-0.7); EOSINOPHILS % (AUTO) 1.3 % (0.0-7.0); HEMATOCRIT 36.3 % (37.0-47.0); HEMOGLOBIN 11.4 g/dl (12.0-16.0); IMMATURE GRANULOCYTE # (AUTO) 0.1 (0.0-1.0); IMMATURE GRANULOCYTE % (AUTO) 0.8 % (0.0-5.0); LYMPHOCYTES # (AUTO) 1.4 K/uL (0.60-3.4); MEAN CORPUSCULAR HEMOGLOBIN 30.9 pg (27.0-31.0); MEAN CORPUSCULAR HGB CONC 31.4 (31.8-35.4); MEAN CORPUSCULAR VOLUME 98.4 fl (81.0-99.0); MONOCYTES # (AUTO) 0.9 K/uL (0.4-2.0); MONOCYTES % (AUTO) 6.7 (0-10); NEUTROPHILS # (AUTO) 10.2 K/ul (2.0-6.9); NEUTROPHILS % (AUTO) 79.9 % (42.2-75.2); PLATELET COUNT 519 10^3/uL (140-440); RDW COEFFICIENT OF VARIATION 13.3 % (11.6-14.8); RED BLOOD COUNT 3.69 10^6/ul (4.20-5.40); WHITE BLOOD COUNT 12.74 K/ul (4.6-10.2)
[2022-03-21 05:02] LABS: ALANINE AMINOTRANSFERASE 12.7 U/L (0-35); ALBUMIN 2.78 g/dL (3.5-5.0); ALKALINE PHOSPHATASE 82.2 U/L (53-141); ASPARTATE AMINO TRANSFERASE 24.9 U/L (14-36); BILIRUBIN,TOTAL 0.45 mg/dL (0.2-1.3); BLOOD UREA NITROGEN 16.5 mg/dL (7-17); CALCIUM 7.67 mg/dL (8.4-10.2); CARBON DIOXIDE 30.8 mmol/L (22-30.0); CHLORIDE 102.2 mmol/L (98-107); CREATININE 1.02 mg/dL (0.60-1.30); GLUCOSE 175.4 mg/dL (74-106); POTASSIUM 3.36 mmol/L (3.5-5.1); SODIUM 136.6 mmol/L (134.5-145); TOTAL PROTEIN 6.12 g/dL (6.3-8.2)
[2022-03-21] MEDS ORDERED: NORCO 5-325 PO PRN (09:00)
[2022-03-21] MEDS: LIPITOR PO SCH (09:23)
[2022-03-21] MEDS: CYMBALTA PO SCH (09:24)
[2022-03-21] MEDS: PLAVIX PO SCH (09:26)
[2022-03-21] MEDS: ARICEPT PO SCH (09:27)
[2022-03-21 09:40] LABS: BILIRUBIN,URINE Negative (NEGATIVE); CLARITY,URINE Cloudy (CLEAR); COLOR,URINE Yellow (YELLOW); GLUCOSE, URINE (UA) Trace (NEGATIVE); KETONES,URINE Negative (NEGATIVE); LEUKOCYTE ESTERASE ,URINE 2+ (NEGATIVE); NITRITE,URINE Positive (NEGATIVE); PH,URINE 6.5 (5-9); PROTEIN,URINE Negative (NEGATIVE); URINE, BLOOD 1+ (NEGATIVE)
[2022-03-21] MEDS ORDERED: LEVAQUIN 500 MG/100 ML D5W 500 MG/100 ML BAG IV SCH (10:00)
[2022-03-21 10:06] LABS: BACTERIA,URINE 4+ (NOT PRESENT); URINE WBC, MICROSCOPIC TNTC (0-2)
[2022-03-21] MEDS ORDERED: LEVAQUIN 750 MG/150 ML D5W 750 MG/150 ML BAG IV SCH (10:30)
[2022-03-21 10:31] LABS: OCCULT BLOOD SAMPLE 1 NEGATIVE (NEGATIVE)
[2022-03-21 10:37] LABS: OCCULT BLOOD SAMPLE 2 NO SPECIMEN RECEIVED (NEGATIVE); OCCULT BLOOD SAMPLE 3 NO SPECIMEN RECEIVED (NEGATIVE)
--- NOTE | 2022-03-21 11:42 | RS.PTINEVL ---
Subjective - Patient information Date of Evaluation: 03/21/22 Date of Arrival on Unit: 03/20/22 Admitted From:: Home Diagnosis: hypokalemia, generalized weakness Usual Living Arrangement: with son and [id number] Home Environment: House, Stairs (few), Rail Medical History: Hypertension, CVA/TIA, COPD, Arthritis Medical History Comments:: cervical spine fx, DJD, GERD Surgical History: Cholecystectomy, Tonsillectomy, Hysterectomy Surgical History Comments:: appey Medications: see chart Subjective Information/ Patient Comments:: pt states that she feels tired and wants to stay in bed, however is agreeable to work with physical therapy. She states " I like physical therapy." pt reports that she uses rwx at home and w/c but admits she uses w/c more often than rwx. - Level of function Abilities prior to this admission: pt amb short distances with rwx. pt also reports she uses w/c more than rwx. She reports she is never at home alone. Current Level of Function: Partially Dependent Current Equipment Used at Home: walker, w/c Interventions - Objective Patient Orientation: Person, Place, Situation Current Interventions: IV's, Telemetry Observation: pt presents with increased thoracic kyphosis, possible scoliosis. pt amb with upper body shifted to R . Range of Motion - ROM Right Upper Extremity AROM: WFL's Left Upper Extremity AROM: WFL's Right Lower Extremity AROM: WFL's Left Lower Extremity AROM: WFL's Muscle Strength - Muscle Strength Right Upper Extremity Strength: Mild Weakness (grossly 4/5) Left Upper Extremity Strength: Mild Weakness (grossly 4/5) Right Lower Extremity Strength: Mild Weakness (hip flex 4-/5, knee flex/ext 4/5, ankle DF/PF 4/5) Left Lower Extremity Strength: Mild Weakness (hip flex 4-/5, knee flex/ext 4/5, ankle DF/PF 4/5) Sensation - Sensation Right Upper Extremity Sensation: Intact/Normal Left Upper Extremity Sensation: Intact/Normal Right Lower Extremity Sensation: Intact/Normal Left Lower Extremity Sensation: Intact/Normal Palpation Palpation Findings: None/Normal Balance - Sitting Balance and Reactions Static Sitting Balance: Good (good-) Dynamic Sitting Balance: Fair - Standing Balance and Reactions Static Standing Balance: Poor Dynamic Standing Balance: Poor Standing Equilibrium Reactions: Delayed Left, Delayed Right Standing Protective Reactions: Delayed Left, Delayed Right Functional Mobility - Bed Mobility Rolling R/L: Supervision, CGA Supine to Sit: CGA Sit to Supine: CGA - Transfers Sit to Stand: CGA Stand to Sit: CGA - Safety Awareness Safety Awareness: Fair VERO INDEX SCORE: n/a Ambulation - Ambulation Assistive Device Used: Rolling Walker Orthotic/Prosthetic Device: No Distance: 30ft Assistance needed with Ambulation: CGA Gait Deviations: Forward posture, Short stride, Deviates from path Ambulation Comments: pt amb with R shift. pt did c/o dizziness with amb. Factors Affecting Ambulation: Decreased Balance, Weakness, Dizziness, Decreased Safety, Limited Endurance Treatment time - Time with patient Length of Evaluation: 21 Total treatment time: 24 Patient Education - Education Patient Education: Activity Modification, Education of Plan of Care Teaching Recipient: Patient Teaching Methods: Discussion Comments: discussion regarding POC Assessment - Assessment Problem List:: Decreased level of function, Requires training/education, Decreased safety/Risk of falls, Weakness Rehab Potential: Fair Further Therapy Indicated?: Yes Candidate for Swing Bed for Therapy Services?: Feel pt may not be a candidate for swing bed for therapy due to pt is close to prior level. Evaluation Complexity: HISTORY: Medium, EXAM OF BODY SYSTEMS: Medium, CLINICAL PRESENTATION: Medium, CLINICAL DECISION MAKING: Medium Patient's Goal(s): feel better and go home Short Term Goals GOAL #1: pt independent with rolling and scooting in bed. Goal to be met by: 03/24/22 GOAL #2: Transfer sup to/from sit independently. Goal to be met by: 03/24/22 GOAL #3: Transfer sit to/from stand SBA Goal to be met by: 03/24/22 GOAL #4: pt amb 50ft with rwx with CGA with no LOB Goal to be met by: 03/24/22 GOAL #5: Improve BLE strength to 4 to 4+/5 Goal to be met by: 03/24/22 Alf Goals GOAL #1: pt transfer sit to/from stand independently. Goal to be met by: 03/26/22 GOAL #2: pt amb functional household distances with rwx SBA Goal to be met by: 03/26/22 GOAL #3: pt ascend/descend 3-4 steps w HR CGA Goal to be met by: 03/26/22 Plan Plan of Care: Therapeutic EX, Neuromuscular Re-Educ, Therapeutic Activity Modalities: Electrical Stimulation Frequency of Treatment: 1-2 X day, as tolerated Duration of Treatment: 5-6 days Anticipated Discharge Destination: Home Treatment Diagnosis (ICD 10 Codes): Difficulty walking R 26.2. impaired balance R 26.81. weakness M62.81 Has the Physician been added for Co-signature?: Yes
--- NOTE | 2022-03-21 14:59 | RS.BEDDYS ---
Subjective Date of Evaluation: 03/21/22 Diagnosis: General weakness Current Level of Function: The patient reports that she resides with her son in his home. She has a hx of swallowing difficulty and reported reflux symptoms. The patient has a poor appetite at this time. Current Diet: Soft and bite-sized; thin liquids; medications whole with sips of water. Current Subjective/complaints:: The patient was resting comfortably in bed upon STEAMTABLE WORKER entry. She was pleasant and cooperative for skilled SPT. When asked about swallowing difficulty, the patient stated she has difficulty often. When asked about reflux, the patient reported she has symptoms and also remembers something 'happened with my esophagus." When asked about consuming meals, she reported she needs alot of moisture or drinks to wash the food down. When asked about quantity of PO intake, the patient reported, "feels like slime in my throat the more I eat, so I eat a little at a time." Medical History Comments:: CVA, GERD Hx Home Medications: Refer to medications for complete current list. Patient's Goals: To increase quantity and quality of PO intake on safer and least restrictive diet. General Information - General Denture Type: Not Applicable (Edentulous) Patient Orientation: Person, Place, Time, Situation Ability to Follow Directions: Excellent Is Patient able to Repeat Directions?: Yes Oral Expression Ability: No Impairment - Voice Voice Quality: Normal Voice Pitch: Normal Voice Loudness: Normal Oral-Facial Assessment - Face Facial Symmetry: Symmetrical Facial Movement: Controlled - Dental/Labial Lip Protrusion: Normal Lip Retraction: Normal Puff Cheeks: Normal - Lingual Protrusion: Normal Retraction: Normal Tip Lateralization: Discoordination (couldn't approximate to corners) Repeated Tip Lateralization: Discoordination Tip Elevation: Normal Repeated Tip Elevation: Normal Comments: Lingual function presented with minimal deficits. Lingual surface was dry Food Presentation - Solids Food Presented: Pureed (via spoon) Behaviors/Comments: STEAMTABLE WORKER presented trials of puree and pt self-fed. 1/2 tsp presentations, pt manipulated in oral cavity prior to swallow initiation. Pt swallowed 2-3x with 1x liquid wash. No overt s/s of aspiration. Food Presented: Mechanical Soft (via fork and finger foods.) Behaviors/Comments: The STEAMTABLE WORKER presented finger foods to pt. Prolonged mastication observed and pt required verbal cues with bolus manipulation. The pt required liquids to wash bolus from oral cavity. She took multiple consecutive drinks of liquids and reported she had 'food stuck." She swallowed 4x and then reported food was 'practically gone." - Liquids Liquid Presented: Thin (via straw and open cup) Behaviors/Comments: STEAMTABLE WORKER presented thin liquids via straw. Pt took 4 large consecutive drinks; minimal deficits with laryngeal elevation palpated. No overt s/s of aspiration observed. However, audible swallow response, laryngeal burping was observed. STEAMTABLE WORKER requested pt take sips via open cup. She took consecutive open cup drinks without overt s/s of aspiration; laryngeal burping was decreased and pt had decreased multiple swallow attempts. - Recommendations: Dysphagia Evaluation Dietary Recommendations: Minced and Moist (Due to prolonged mastication and dry mouth symptoms), Thin Comments:: STEAMTABLE WORKER recommends downgrade to minced and moist diet texture due to pt's mild-moderate difficulty with soft and bite-sized trials. Pt ok for thin liquids; however with meals STEAMTABLE WORKER recommends thin liquids via open cup. Continue meds with thin liquids via straw or open cup. Dysphagia Swallow Precautions/Strategies: Sitting Upright (90 deg), Liquids from Cup, Small Bites and Sips, Alternate Liquids/Solids Comments:: During PO intake, STEAMTABLE WORKER recommends liquids via cup. STEAMTABLE WORKER recommends no liquid washes, but ok to alternate liquids every bite of food, once food is swallowed. STEAMTABLE WORKER recommends pt/family/staff follow GERD precautions. - Summary Dysphagia Evaluation Summary: The patient presented with mild oral and pha ryngeal phase deficits that are reducing her quantity of PO intake. The patient is edentulous which prolongs mastication process, however dry mouth is also affecting bolus formation/coordination. The patient's swallow initiation is timely and laryngeal elevation presented with minimal weakness. The patient does not demonstrate overt s/s of aspiration with soft and bite-sized trials, puree trials, or thin liquids. However, soft and bite-sized trials required increased effort to tolerate vs puree trials. At this time, due to pt's limited PO intake and appetite, STEAMTABLE WORKER recommends downgrade to minced and moist diet texture and continue thin liquids. Pt ok for meds whole with thin liquids. Please follow all safe swallow/aspiration precautions. STEAMTABLE WORKER also suspects pt's GERD is contributing to current swallow difficulty. Further Therapy Indicated?: Yes Comments: STEAMTABLE WORKER began education during PO intake to utilize strategies. Written instructions for compensatory strategies and safe swallow/aspiration precautions will be left at the patient's bedside. Rehab Potential: Good Functional Reporting G Codes: n/a Severity Impairment Rationale: n/a Short Term Goals Goal #1: Pt complete oral motor exercises to improve coordination with boli Goal to be met by: 03/24/22 Goal #2: Trial soft and bite-sized diet texture with min to no overt s/s of asp. Goal to be met by: 03/24/22 Goal #3: Pt complete Shaker exercise given v/v cues Goal to be met by: 03/24/22 Goal #4: Pt tolerate thin liquids with min to no overt s/s of aspiration Goal to be met by: 03/24/22 Goal #5: Pt utilize compensatory swallow strategies 100% of PO intake Goal to be met by: 03/24/22 Science Professor Goals Goal #1: Tolerate safer and least restrictive diet with min to no overt s/s of asp. Goal to be met by: 03/24/22 Goal #2: Pt maintain adequate hydration/nutrition w/ least restrictive diet Goal to be met by: 03/24/22 Plan Duration of Treatment: 1 Week Frequency of Treatment: 1x/day Anticipated Discharge Destination: Home (Son's home.) - Treatment Code (1) Dysphagia Code(s): R13.10 - Dysphagia, unspecified Qualifiers: Dysphagia type: pharyngoesophageal phase Qualified Code(s): R13.14 - Dysphagia, pharyngoesophageal phase (2) Generalized weakness Code(s): R53.1 - Weakness (3) Poor appetite Code(s): R63.0 - Anorexia
--- NOTE | 2022-03-21 17:52 | PCM.PROG ---
Date Seen by Provider: 03/21/22 Time Seen by Provider: 17:48 Subjective: general weakness improving, still has diarrhea Objective: Vitals: T=97.3 F, P=80, R=14, VM=786/71, SPO2=98 HEENT: [conjunctiva clear] Neck: []supple Lungs: [] no respiratory distress CVS: []RRR Abdomen: []nondistended Extremities: []rene Neurological: []alert and oriented Skin: []pink Lab/Tests/Diagnostic Imaging: [] K+ 3.3, wbc 12, u/a + (1) Dysphagia: Status: Acute Code(s): R13.10 - Dysphagia, unspecified SNOMED Code(s): 41449361 (2) Generalized weakness: Status: Acute Code(s): R53.1 - Weakness SNOMED Code(s): 68536653 (3) Poor appetite: Status: Acute Code(s): R63.0 - Anorexia SNOMED Code(s): 70090871 (4) UTI (urinary tract infection): Status: Acute Code(s): N39.0 - Urinary tract infection, site not specified SNOMED Code(s): 50879354 Plan: start levaquin in pen allergic pt w/ uti obtain ot/pt consult continue iv D5NS w/ 40KCL at 100cc/hr for diarrhea and potassium replacemtn, check am labs care to Dr Irizarry at 19:00
[2022-03-22 05:00] LABS: BASOPHILS % (AUTO) 0.3 % (0.0-3.0); EOSINOPHILS # (AUTO) 0.2 K/ul (0.0-0.7); EOSINOPHILS % (AUTO) 1.2 % (0.0-7.0); HEMATOCRIT 35.1 % (37.0-47.0); IMMATURE GRANULOCYTE # (AUTO) 0.1 (0.0-1.0); IMMATURE GRANULOCYTE % (AUTO) 0.8 % (0.0-5.0); LYMPHOCYTES # (AUTO) 1.4 K/uL (0.60-3.4); LYMPHOCYTES % (AUTO) 10.7 (10.0-50.0); MEAN CORPUSCULAR HEMOGLOBIN 30.8 pg (27.0-31.0); MEAN CORPUSCULAR HGB CONC 31.3 (31.8-35.4); MEAN CORPUSCULAR VOLUME 98.3 fl (81.0-99.0); MONOCYTES # (AUTO) 0.9 K/uL (0.4-2.0); NEUTROPHILS # (AUTO) 10.4 K/ul (2.0-6.9); PLATELET COUNT 497 10^3/uL (140-440); RDW COEFFICIENT OF VARIATION 13.2 % (11.6-14.8); RED BLOOD COUNT 3.57 10^6/ul (4.20-5.40); WHITE BLOOD COUNT 13.03 K/ul (4.6-10.2)
[2022-03-22 05:11] LABS: ALANINE AMINOTRANSFERASE 11.8 U/L (0-35); ALBUMIN 2.67 g/dL (3.5-5.0); ALKALINE PHOSPHATASE 87.1 U/L (53-141); ASPARTATE AMINO TRANSFERASE 26.1 U/L (14-36); BILIRUBIN,TOTAL 0.34 mg/dL (0.2-1.3); BLOOD UREA NITROGEN 8.7 mg/dL (7-17); CALCIUM 8.18 mg/dL (8.4-10.2); CARBON DIOXIDE 29.3 mmol/L (22-30.0); CHLORIDE 102.8 mmol/L (98-107); CREATININE 0.82 mg/dL (0.60-1.30); GLUCOSE 170.2 mg/dL (74-106); POTASSIUM 3.89 mmol/L (3.5-5.1); SODIUM 135.2 mmol/L (134.5-145); TOTAL PROTEIN 5.79 g/dL (6.3-8.2)
[2022-03-22] MEDS: D5%-NS-KCL 40 MEQ/L IV SOL 1,000 ML IV SCH (06:11)
[2022-03-22] MEDS: PLAVIX PO SCH (09:10)
[2022-03-22] MEDS: CYMBALTA PO SCH (09:10)
[2022-03-22] MEDS: LIPITOR PO SCH (09:10)
[2022-03-22] MEDS: ARICEPT PO SCH (09:10)
--- NOTE | 2022-03-22 10:00 | PCM.PROG ---
Date Seen by Provider: 03/22/22 Time Seen by Provider: 09:57 Subjective: improving general weakness Objective: Vitals: T=97.4 F, P=76, R=18, IF=916/59, SLK2=283 HEENT: []conjunctiva clear Neck: []supple Lungs: [] clear CVS: []RRR Abdomen: []soft and nontender Extremities: []rene Neurological: []alert Skin: []pink Lab/Tests/Diagnostic Imaging: [] K+ 3.8, hemoccult neg stool (1) Dysphagia: Status: Acute Code(s): R13.10 - Dysphagia, unspecified SNOMED Code(s): 21940362 (2) Generalized weakness: Status: Acute Code(s): R53.1 - Weakness SNOMED Code(s): 14800392 (3) Poor appetite: Status: Acute Code(s): R63.0 - Anorexia SNOMED Code(s): 94378271 (4) UTI (urinary tract infection): Status: Acute Code(s): N39.0 - Urinary tract infection, site not specified SNOMED Code(s): 28185796 Plan: start ot/pt/speech assessment, continue levaquin uti care to Dr Irizarry at 19:00
--- NOTE | 2022-03-22 10:43 | RS.DYSPHTX ---
Dysphagia Treatment Note Date of Note: 03/22/22 Visit #: 1 Time of Treatment: 09:35 Subjective: The patient was in bed and lethargic upon COTTONSEED MEAT PRESSER entry. When asked about participating in skilled SPT, the patient agreed. The patient verbalized complaints of feeling sick to stomach and tired. She was able to participate with exercises and education in the bed. Nursing reported the patient consumed her boost supplement for breakfast and denied trials with her meal tray. No r eports or concerns with chest congestion or fever at this time. Total treatment time: 30 - Short Term Goals Goal #1: Pt complete oral motor exercises to improve coordination with boli Activity/Accuracy: COTTONSEED MEAT PRESSER provided verbal education and training with oral motor exercises for coordination. COTTONSEED MEAT PRESSER modeled exercises and pt imitated 100% of opportunities. Pt completed lingual lateralization to corners or mouth and to inside of cheek over two sets of 20 reps. No fatigue reported after exercise completed. COTTONSEED MEAT PRESSER reviewed written instructions left at the bedside and pt recalled/demonstrated 2/2 exercises. Goal #2: Trial soft and bite-sized diet texture with min to no overt s/s of asp. Activity/Accuracy: Pt refused diet trials, per 'i'm not hungry, no appetite." COTTONSEED MEAT PRESSER discussed current diet texture with the patient. Goal #3: Pt complete Shaker exercise given v/v cues Activity/Accuracy: COTTONSEED MEAT PRESSER discussed potential benefits of the Shaker exercise. The patient was not ready to participate with Shaker exercise this date. But the COTTONSEED MEAT PRESSER recommends beginning the shaker program when pt is ready to participate. Goal #4: Pt tolerate thin liquids with min to no overt s/s of aspiration Activity/Accuracy: COTTONSEED MEAT PRESSER presented thin liquids via straw. The patient was provided education on use of straw vs open cup. Pt consumed approximately 4-5 oz of thin liquids. Laryngeal elevation was mildly decreased. Pt demonstrated delayed throat clears and 1x delayed cough. Laryngeal burping and audible swallow responses were observed with all trials. Pt had minimal overt s/s of aspiration. Pt has no new chest congestion. Goal #5: Pt utilize compensatory swallow strategies 100% of PO intake Activity/Accuracy: COTTONSEED MEAT PRESSER used written instructions at the bedside to review recommended compensatory swallow strategies. COTTONSEED MEAT PRESSER discussed each strategy with pt and provided verbal education for reasoning for recommended swallow strategies. The patient was able to verbalize each strategy to COTTONSEED MEAT PRESSER given a prompt. COTTONSEED MEAT PRESSER continues recommendations for 2x swallow for one bolus, drink of liquids 2x; do not use liquid wash, but alternate liquids solids. Aspiration and safe swallow precautions were also discussed for in the bed and at the table. Pt required the COTTONSEED MEAT PRESSER to raise HOB prior to taking sips of liquids. - [facility] Goals Goal #1: Tolerate safer and least restrictive diet with min to no overt s/s of asp. Goal #2: Pt maintain adequate hydration/nutrition w/ least restrictive diet Assessment: The patient was provided education and training with oral motor exercises, compensatory swallow strategies, and safe swallow/aspiration precautions. Given prompts the patient could demonstrate exercises and strategies. The patient is recommended to continue minced and moist diet with thin liquids and medications whole with sips of water. The patient exhibits delayed throat clears and coughs with thin liquids, but remains afebrile, without chest congestion. - Units Charged Swallowing Therapy: 2
[2022-03-23] MEDS ORDERED: PROTONIX IV IVP ONE (01:17)
[2022-03-23] MEDS ORDERED: GI COCKTAIL PO PRN (01:18)
[2022-03-23] MEDS ORDERED: ZOFRAN 4 MG/2 ML IVP PRN (01:20)
[2022-03-23] MEDS ORDERED: ZOFRAN 4 MG/2 ML IM PRN (01:46)
[2022-03-23] MEDS ORDERED: PROTONIX PO PRN (01:47)
[2022-03-23 05:18] VITALS: BP 146/76; TEMP 97.4
[2022-03-23] MEDS: ARICEPT PO SCH (08:47)
[2022-03-23] MEDS: PLAVIX PO SCH (08:47)
[2022-03-23] MEDS: CYMBALTA PO SCH (08:48)
[2022-03-23] MEDS: LIPITOR PO SCH (08:48)
--- NOTE | 2022-03-23 11:06 | PCM.DC ---
Final Diagnosis: hypokalemia, generalized weakness, uti Physical Exam Appearance: Well-appearing Ill-appearing: None Pain Distress: None Eyes: Conjunctiva clear ENT: Oropharynx normal Neck: Supple Respiratory: Airway patent, Breath sounds clear and Breath sounds equal Cardiovascular: RRR GI/: Soft and Nontender Musculoskeletal: No calf tenderness Skin: Warm and Dry Neurological: Alert Psychiatric: Affect appropriate (1) Dysphagia: Status: Acute Code(s): R13.10 - Dysphagia, unspecified SNOMED Code(s): 18863512 Qualifiers: Dysphagia type: pharyngoesophageal phase Qualified Code(s): R13.14 - Dysphagia, pharyngoesophageal phase (2) Generalized weakness: Status: Acute Code(s): R53.1 - Weakness SNOMED Code(s): 83402928 (3) Poor appetite: Status: Acute Code(s): R63.0 - Anorexia SNOMED Code(s): 47927176 (4) UTI (urinary tract infection): Status: Acute Code(s): N39.0 - Urinary tract infection, site not specified SNOMED Code(s): 18418068 Reason for Hospitalization: diarrhea and low potassium Prognosis/Condition at Discharge: good Medications at Discharge: home meds plus levaquin 500mg po q 48hrs x 7 doses Lab/Diagnostics: K+ 3.89, stool hemoccult negative Education Provided to Patient and Family: per physicial therapy Follow-ups: Dr Ceron Discharge Disposition: Assisted Living Facility Hospital Course: pt improved daily in general strength and appetite Plan: discharge to [facility] and Dr Ceron
== END 2022-03-23 14:21 | disposition home or self-care (01) | DRG 641 ==
LOC: ED 17:16 → MEDSURG A 22:13
PROVIDERS: ADMIT Surgery; ATTEND Internal Medicine Geriatric Medicine
DX: J44.9 Chronic obstructive pulmonary disease, unspecified; Z86.73 Personal history of transient ischemic attack (TIA), and cerebral infarction without residual deficits; Z79.899 Other long term (current) drug therapy; R26.81 Unsteadiness on feet; Z20.822 Contact with and (suspected) exposure to COVID-19; M51.36 Other intervertebral disc degeneration, lumbar region; R13.14 Dysphagia, pharyngoesophageal phase; Z51.81 Encounter for therapeutic drug level monitoring; K21.9 Gastro-esophageal reflux disease without esophagitis; R63.0 Anorexia; E78.5 Hyperlipidemia, unspecified; E87.6 Hypokalemia; N39.0 Urinary tract infection, site not specified; R53.1 Weakness; Z99.3 Dependence on wheelchair

== ENCOUNTER 2024-01-29 19:17 | Inpatient (IN) ==
--- NOTE | 2024-01-29 19:33 | ED.PDOC ---
General ED Provider: Dr. MI MORGAN MD Chief Complaint: Shortness of Air Stated Complaint: Shortness of breath and hypoxemia Time Seen by Provider: 01/29/24 19:25 Mode of Arrival: Ambulance Information Source: Patient, EMT (EMT told me that the patient had gotten up to go to the restroom and when she came back she was [facility] at the [facility]. O2 sat by [facility] was between 60 and 90% on room air.) and Nurse ([facility] nurse told visual specialist that the patient has been hypoxic with ambulation recently.) Exam Limitations: Dementia Primary Care Provider: TREVER POST MD Nursing and Triage Documentation Reviewed and Agree: Yes Does Patient Take Opioids?: No Is Patient Opioid Naive?: No What is Opioid Naive?: *Opioid Naive implies the patient is not already taking opioids or not chronically receiving opioids on a daily basis. *PRN dosing is not "usually" associated with tolerance. *Patients are at higher risk of over-sedation and aspiration. Is Patient Opioid Tolerant?: No What is Opioid Tolerant?: *Opioid Tolerance implies less than the expected response to an opioid. *Acquired tolerance is defined by the patient taking 60mg of oral morphine daily (or equianalgesic dose of another opioid) for 1 week or more. *Often associated with chronic pain. *May take more than usual dose to achieve desired pain control. Respiratory Complaint Exam Shortness of Air Complaint/Exam Onset/Duration: 1 day Symptoms Are: Still present Timing: Constant Initial Severity: Moderate Current Severity: Moderate Character: Reports Dyspnea on exertion Aggravating: Reports Movement and Recumbent position Alleviating: Reports None and Upright position (Upright position while resting.) Associated Signs and Symptoms: Reports Cough and Labored breathing; Denies Wheezing, Chest pain with cough, Chest pain, Fever, Chills, Diaphoresis, Nasal congestion, Dizziness, Calf pain, Calf swelling, Edema or Rapid breathing History of Healthcare-Acquired Pneumonia: Lives at [facility] Pulmonary Embolism Risk Factors: Reports Bedrest Cardiac Risk Factors: Reports None Pseudomonas Risk Factors: Reports None Tuberculosis Risk Factors: Reports None Home Oxygen Use: No Respiratory Distress: Moderate Stridor Present: No Tracheal Deviation: No Subcutaneous Emphysema: No Accessory Muscle Use: No Retractions: Not Present Diminished Breath Sounds: Yes Prolonged Expiratory Phase: No Unable to Speak Full Sentences: No Fatigue: Yes Leg Swelling: No Quentin's Sign Present: No Grunting Respirations: No Kussmaul Respirations: No Differential Diagnoses: COPD Exacerbation, Pneumonia, Bronchitis, RSV, URI and Other (Acute hypoxemic respiratory failure) Related Surgical History: Reports None Review of Systems Review Of Systems Constitutional: Reports Weakness, Loss of appetite and Other (decreased activity) Eyes: Reports No symptoms Ears, Nose, Mouth, Throat: Reports No symptoms Respiratory: Reports Cough and Shortness of Breath Cardiac: Reports No symptoms GI: Reports No symptoms : Reports No symptoms Musculoskeletal: Reports No symptoms Skin: Reports No symptoms Neurological: Reports No symptoms Endocrine: Reports No symptoms Hematologic/Lymphatic: Reports No symptoms All Other Systems: Reviewed and Negative [facility] Medical History Gastroesophageal reflux disease K21.9 - Gastro-esophageal reflux disease without esophagitis (ICD-10) Chronic obstructive pulmonary disease Declines annual PFT not on any controller meds. Chronic/stable medical problem 12/26/23 J44.9 - Chronic obstructive pulmonary disease, unspecified (ICD-10) Cervical spine fracture S12.9XXA - Fracture of neck, unspecified, initial encounter (ICD-10) DJD (degenerative joint disease) M19.90 - Unspecified osteoarthritis, unspecified site (ICD-10) Hyperlipidemia E78.5 - Hyperlipidemia, unspecified (ICD-10) Internal hemorrhoids without complication Grade 2, Dr Cobb, 06/27/18 External tags, hemorrhoids, ?prolapse. K64.8 - Other hemorrhoids (ICD-10) Arthritis M19.90 - Unspecified osteoarthritis, unspecified site (ICD-10) Family History Mother Hyperlipidemia Cerebrovascular accident Hypertension Social History Smoking and tobacco status: Former smoker Alcohol intake: never Substance use type: does not use Kayla/buddhist: Baptit Special kayla needs: No Agree to transfusion: Yes Adopted: No Caregiver/support person: No Foster care: No Household members: family and children Housing: house Lives independently: Yes Daycare: family member Number of children: 3 Highest education level completed: some college, no degree Financial difficulty paying for basics: not very hard service: No [facility]: No Current occupational status: retired Pets and animals: Yes Leisure activites: reading History of recent travel: No Sexually active: No Do you think of yourself as: straight/heterosexual Current gender identity: female Seatbelt use: always Helmet use: No Drives intoxicated or rides with intoxicated stage driver: No Water heater temperature set < 120 degrees: Yes Working smoke detector in home: Yes Fire extinguisher in home: Yes Carbon monoxide detector in home: Yes Firearms in home: Yes Firearms unloaded and locked: Yes Surgical History History of musculoskeletal system surgery Back surgery Z98.890 - Other specified postprocedural states (ICD-10) Status post tonsillectomy Z90.89 - Acquired absence of other organs (ICD-10) Status post hysterectomy Z90.710 - Acquired absence of both cervix and uterus (ICD-10) Status post cholecystectomy Z90.49 - Acquired absence of other specified parts of digestive tract (ICD- 10) Status post appendectomy Z90.49 - Acquired absence of other specified parts of digestive tract (ICD- 10) Status post tonsillectomy and adenoidectomy Z90.89 - Acquired absence of other organs (ICD-10) Female Reproductive History Menstrual Hx Hysterectomy: Yes Hx Tubal Ligation: No Physical Exam Physical Exam Appearance: Reports Ill-appearing and Other (Pleasant elderly female who appears to be somewhat weak. She is alert and in NAD. Currently necessitating 2 L nasal cannula to keep O2 sat above 94%.) Ill-appearing: Mild Pain Distress: None Eyes: Reports JAVIER and EOMI ENT: Reports Nose normal and Oropharynx normal Neck: Supple Respiratory: Reports Airway patent, Breath sounds equal and Breath sounds diminished (Bibasilar diminished breath sounds.); Denies Rhonchi or Wheezes Cardiovascular: Reports RRR, No rub and No murmur GI/: Reports Soft, Nontender, No masses and Bowel sounds normal Musculoskeletal: Reports No edema Skin: Reports Warm, Dry and Normal color Neurological: Reports Sensation intact, Motor intact and Alert Psychiatric: Reports Affect appropriate and Mood appropriate Interpretation Radiology Interpretation Radiology Interpretation By: ED Physician Radiology Results: Positive (Patient has consolidations around the perihilar areas of the right middle lobe. Possible pneumonia process.) Exam Interpreted: CXR Course Course 01/29/24 19:34 01/29/24 19:47 Orders, Labs, Meds: Lab Review 01/29/24 01/29/24 01/29/24 19:34 19:35 19:47 WBC 9.10 RBC 4.06 L Hgb 13.1 Hct 41.2 MCV 101.5 H MCH 32.3 H MCHC 31.8 RDW Coeff of Ella 12.4 Plt Count 300 Immature Gran % (Auto) 0.2 Neut % (Auto) 54.7 Lymph % (Auto) 31.3 Ector % (Auto) 7.8 Eos % (Auto) 5.3 Baso % (Auto) 0.7 Neut # (Auto) 5.0 Lymph # (Auto) 2.9 Ector # (Auto) 0.7 Eos # (Auto) 0.5 Baso # (Auto) 0.1 Immature Gran # (Auto) 0.0 ESR Pending PT 9.5 INR 0.90 Puncture Site Base Excess O2 Saturation ABG pH ABG pCO2 ABG pO2 ABG HCO3 ABG Total CO2 Fabian Test Hemoglobin Oxyhemoglobin Carboxyhemoglobin Total Hemoglobin O2 Delivery Device Oxygen Liter Flow FiO2 % Sodium 137.0 Potassium 4.60 Chloride 100.8 Carbon Dioxide 28.2 Anion Gap 12.60 BUN 25.5 H Creatinine 1.17 Estimated GFR (MDRD) 44.00 BUN/Creatinine Ratio 21.79 Glucose 176.0 H Lactic Acid 1.44 Calcium 9.19 Magnesium 2.05 Total Bilirubin 0.41 AST 125.6 H ALT 203.8 H Alkaline Phosphatase 137.4 Total Protein 7.17 Albumin 4.43 Globulin 2.74 Albumin/Globulin Ratio 1.61 Influ A Molecular Assay Negative by naat Influ B Molecular Assay Negative by naat RSV Antigen Negative by naat SARS CoV-2 RNA Rapid MARLENE Positive H 01/29/24 19:54 WBC RBC Hgb Hct MCV MCH MCHC RDW Coeff of Ella Plt Count Immature Gran % (Auto) Neut % (Auto) Lymph % (Auto) Ector % (Auto) Eos % (Auto) Baso % (Auto) Neut # (Auto) Lymph # (Auto) Ector # (Auto) Eos # (Auto) Baso # (Auto) Immature Gran # (Auto) ESR PT INR Puncture Site Lt rad Base Excess 6.6 H O2 Saturation 98.0 ABG pH 7.42 ABG pCO2 48.0 H ABG pO2 102.0 H ABG HCO3 31.1 H ABG Total CO2 32.6 H Fabian Test Pos Hemoglobin 1.2 Oxyhemoglobin 95.8 Carboxyhemoglobin 1.0 Total Hemoglobin 12.8 O2 Delivery Device Cannula Oxygen Liter Flow 2.00 FiO2 % 28.0 Sodium Potassium Chloride Carbon Dioxide Anion Gap BUN Creatinine Estimated GFR (MDRD) BUN/Creatinine Ratio Glucose Lactic Acid Calcium Magnesium Total Bilirubin AST ALT Alkaline Phosphatase Total Protein Albumin Globulin Albumin/Globulin Ratio Influ A Molecular Assay Influ B Molecular Assay RSV Antigen SARS CoV-2 RNA Rapid MARLENE Orders Category Date Time Status ABG DRAW REQUEST Stat CARDIO 01/29/24 19:34 Completed NEBULIZER TREATMENT Stat CARDIO 01/29/24 19:37 Completed ED APPLY O2 .ONCE EMERGENCY 01/29/24 19:34 Active ED RIGGER CHIEF APPLIED .ONCE EMERGENCY 01/29/24 19:34 Completed ED IV/MEDIPORT/POWERPORT .ONCE EMERGENCY 01/29/24 19:34 Completed ED VITAL SIGNS .ONCE EMERGENCY 01/29/24 19:34 Active Weeks [ED CATHETER INSERTION AND CARE] .ONCE EMERGENCY 01/29/24 19:33 Active ABG COOX Stat LAB 01/29/24 19:54 Completed BLOOD CULTURE (ED ONLY) Stat LAB 01/29/24 19:47 Received C-REACTIVE PROTEIN Stat LAB 01/29/24 19:47 Received CBC W/ AUTO DIFF Stat LAB 01/29/24 19:34 Results COMPREHENSIVE METABOLIC PANEL Stat LAB 01/29/24 19:47 Completed ESR Stat LAB 01/29/24 19:34 Results FLU A/B MOLECULAR Stat LAB 01/29/24 19:35 Completed LACTIC ACID Stat LAB 01/29/24 19:47 Completed MAGNESIUM Stat LAB 01/29/24 19:47 Completed MRSA SCREEN Routine LAB 01/29/24 19:35 Received PROCALCITONIN Stat LAB 01/29/24 19:47 Received PT WITH INR Stat LAB 01/29/24 19:47 Completed RSV Stat LAB 01/29/24 19:35 Completed SARS COV-2 RNA RAPID MARLENE Stat LAB 01/29/24 19:35 Completed URINALYSIS C & S IF INDICATED Stat LAB 01/29/24 19:34 Uncollected 0.9 % Sodium Chloride [Saline Flush] Meds 01/29/24 19:33 Active 1 syr IVF PRN PRN Ipratropium/Albuterol Neb [Duoneb] Meds 01/29/24 19:33 Discontinued 3 ml NEB ONCE STA Levofloxacin/D5w [Levaquin 750 mg/150 ml D5w] Meds 01/29/24 20:19 Active 750 mg in 150 ml IV ONCE Methylprednisolone Sod Succ/Pf [Solu-Medrol 125 mg] Meds 01/29/24 19:33 Discontinued 125 mg IM ONCE ONE Methylprednisolone Sod Succ/Pf [Solu-Medrol 125 mg] Meds 01/29/24 19:58 Discontinued 125 mg IVP ONCE ONE Sodium Chloride 0.9% [Sodium Chloride] 1,000 ml Meds 01/29/24 19:33 Discontinued IV BOLUS CHEST, 1V AP ONLY Stat RADS 01/29/24 19:33 Taken Medications Generic Name Dose Route Start Last Admin Trade Name Freq PRN Reason Stop Dose Admin Levofloxacin/Dextrose 750 mg in 150 mls @ 100 mls/hr 01/29/24 20:19 Levaquin 750 Mg/150 Ml D5w IV 01/29/24 21:48 ONCE ONE Sodium Chloride 1 syr 01/29/24 19:33 0.9% Sodium Chloride 10 Ml Disp.Syrin IVF PRN PRN To flush IV Discontinued Medications Generic Name Dose Route Start Last Admin Trade Name Freq PRN Reason Stop Dose Admin Albuterol/Ipratropium 3 ml 01/29/24 19:33 01/29/24 19:46 Ipratropium/Albuterol Vial.Neb NEB 01/29/24 19:34 3 ml ONCE STA Administration Sodium Chloride 1,000 mls @ 1,000 mls/hr 01/29/24 19:33 01/29/24 19:56 Sodium Chloride IV 01/29/24 20:32 1,000 mls/hr BOLUS ONE Administration Methylprednisolone Sodium Succinate 125 mg 01/29/24 19:33 01/29/24 19:59 Methylprednisolone Sod Succ/Pf 125 Mg/2 Ml Vial IM 01/29/24 19:34 Not Given ONCE ONE Methylprednisolone Sodium Succinate 125 mg 01/29/24 19:58 01/29/24 20:01 Methylprednisolone Sod Succ/Pf 125 Mg/2 Ml Vial IVP 01/29/24 19:59 125 mg ONCE ONE Administration Vital Signs: Temp Pulse Resp BP Pulse Ox 01/29/24 19:20 98.0 F 84 18 125/72 90 L Discharge Plan Discharge Patient Disposition: ADMITTED INPATIENT Discharge Problem: Acute respiratory failure with hypoxia and hypercapnia, Generalized weakness, COVID, Transaminitis, Hyperglycemia Community acquired pneumonia Qualifiers: Laterality: right Lung location: middle lobe of lung Qualified Code(s): J18.9 - Pneumonia, unspecified organism Did you review [place] [employer]ING for ALL controlled substances?: Not Applicable ED Provider: MI MORGAN Condition: Stable Physician Progress Note: Patient is a an 83-year-old female that [facility] for [facility]. [facility] staff told the EMS that the patient had come back from the bathroom and became short of breath. They stated the patient had an O2 sat in the 60% to 90% on room air. Patient was placed on 2 L nasal cannula and it brought the patient's O2 sat up to above 94%. Patient does have increased respiratory rate of 26 respirations per minute. Patient denies any abdominal pain, nausea, vomiting, diarrhea, dizziness, syncope, loss consciousness, chest pain, or any other acute symptoms not mentioned in the HPI. -Will give the patient a DuoNeb treatment and continue supplemental oxygen at 2 L to keep O2 sat above 94%. -Will get the patient IV methylprednisolone 125 mg. -Will give the patient IV fluids. -Will order baseline labs, EKG, and chest x-ray. -ABG shows a pH of 7.42, pCO2 48, pO2 102, bicarb 31.1. -CBC is unremarkable. CMP unremarkable except for elevated glucose. Patient does have a transaminitis as well. -Will give IV levoquin for CAP. Patient is also positive for COVID. -([id number]) I Spoke to ERWIN Fox, hospitalist, for inpatient admission for acute hypoxemic respiratory failure and pneumonia. Hospitalist has agreed to admit the patient.
[2024-01-29] MEDS: DUONEB NEB STA (19:46)
[2024-01-29] MEDS: SODIUM CHLORIDE 1,000 ML IV ONE (19:56)
[2024-01-29 19:58] LABS: ABG O2 HGB 95.8 % (95-100); ABG PH 7.42 (7.35-7.45); BEecf 6.6 (-2.0-3.0); HCO3 31.1 (21-28); MetHb 1.2 (0-1.5); TCO2 32.6 (19-24); tHb 12.8 g/dl (11.7-17.4)
[2024-01-29] MEDS: SOLU-MEDROL 125 MG IM ONE (19:59)
[2024-01-29] MEDS: SOLU-MEDROL 125 MG IVP ONE (20:01)
[2024-01-29 20:08] LABS: BASOPHILS # (AUTO) 0.1 K/uL (0-0.2); BASOPHILS % (AUTO) 0.7 % (0.0-3.0); EOSINOPHILS # (AUTO) 0.5 K/ul (0.0-0.7); EOSINOPHILS % (AUTO) 5.3 % (0.0-7.0); HEMATOCRIT 41.2 % (37.0-47.0); HEMOGLOBIN 13.1 g/dl (12.0-16.0); IMMATURE GRANULOCYTE % (AUTO) 0.2 % (0.0-5.0); LYMPHOCYTES # (AUTO) 2.9 K/uL (0.60-3.4); LYMPHOCYTES % (AUTO) 31.3 (10.0-50.0); MEAN CORPUSCULAR HEMOGLOBIN 32.3 pg (27.0-31.0); MEAN CORPUSCULAR HGB CONC 31.8 (31.8-35.4); MEAN CORPUSCULAR VOLUME 101.5 fl (81.0-99.0); MONOCYTES # (AUTO) 0.7 K/uL (0.4-2.0); MONOCYTES % (AUTO) 7.8 (0-10); NEUTROPHILS % (AUTO) 54.7 % (42.2-75.2); PLATELET COUNT 300 10^3/uL (140-440); RDW COEFFICIENT OF VARIATION 12.4 % (11.6-14.8); RED BLOOD COUNT 4.06 10^6/ul (4.20-5.40)
[2024-01-29 20:18] LABS: PROTHROMBIN TIME 9.5 SEC (9.3-11.0)
[2024-01-29 20:25] LABS: SARS COV-2 RNA RAPID NAAT POSITIVE (NEGATIVE)
[2024-01-29 20:34] LABS: RSV MOLECULAR NEGATIVE BY NAAT (NEGATIVE)
[2024-01-29 20:35] LABS: ALANINE AMINOTRANSFERASE 203.8 U/L (0-35); ALBUMIN 4.43 g/dL (3.5-5.0); ALKALINE PHOSPHATASE 137.4 U/L (53-141); ASPARTATE AMINO TRANSFERASE 125.6 U/L (14-36); BILIRUBIN,TOTAL 0.41 mg/dL (0.2-1.3); BLOOD UREA NITROGEN 25.5 mg/dL (7-17); CALCIUM 9.19 mg/dL (8.4-10.2); CARBON DIOXIDE 28.2 mmol/L (22-30.0); CHLORIDE 100.8 mmol/L (98-107); CREATININE 1.17 mg/dL (0.60-1.30); POTASSIUM 4.6 mmol/L (3.5-5.1); TOTAL PROTEIN 7.17 g/dL (6.3-8.2)
[2024-01-29 20:35] LABS: MOLECULAR FLU A NEGATIVE BY NAAT (NEGATIVE); MOLECULAR FLU B NEGATIVE BY NAAT (NEGATIVE)
[2024-01-29 20:44] LABS: ERYTHROCYTE SEDIMENTATION RATE 14 mm/hr (0-20)
[2024-01-29] MEDS ORDERED: ZOFRAN 4 MG/2 ML IVP PRN (20:57)
[2024-01-29] MEDS ORDERED: TYLENOL PO PRN (20:57)
--- NOTE | 2024-01-29 21:04 | DI ---
EXAM: FRONTAL VIEW OF THE CHEST. HISTORY: The shortness of breath COMPARISON: 08/16/2023 FINDINGS: Cardiac silhouette is normal. No organized infiltrate/consolidation. No visible effusion or pneumothorax. No acute osseous abnormality. IMPRESSION: 1. No acute findings.
[2024-01-29] MEDS: LEVAQUIN 750 MG/150 ML D5W 750 MG/150 ML BAG IV ONE (21:05)
[2024-01-29 22:58] VITALS: BMI 24.9
[2024-01-29] MEDS: VEKLURY 200 MG in SODIUM CHLORIDE 250 ML IV ONE (23:25)
[2024-01-29] MEDS: DUONEB NEB SCH (23:38)
[2024-01-30 05:32] LABS: BASOPHILS % (AUTO) 0.3 % (0.0-3.0); HEMATOCRIT 38.7 % (37.0-47.0); HEMOGLOBIN 12.4 g/dl (12.0-16.0); IMMATURE GRANULOCYTE % (AUTO) 0.5 % (0.0-5.0); LYMPHOCYTES # (AUTO) 1.3 K/uL (0.60-3.4); LYMPHOCYTES % (AUTO) 17.5 (10.0-50.0); MEAN CORPUSCULAR HEMOGLOBIN 32.5 pg (27.0-31.0); MEAN CORPUSCULAR VOLUME 101.6 fl (81.0-99.0); MONOCYTES # (AUTO) 0.1 K/uL (0.4-2.0); MONOCYTES % (AUTO) 1.3 (0-10); NEUTROPHILS % (AUTO) 80.4 % (42.2-75.2); PLATELET COUNT 246 10^3/uL (140-440); RDW COEFFICIENT OF VARIATION 12.3 % (11.6-14.8); RED BLOOD COUNT 3.81 10^6/ul (4.20-5.40); WHITE BLOOD COUNT 7.49 K/ul (4.6-10.2)
[2024-01-30 05:49] LABS: ALBUMIN 4.41 g/dL (3.5-5.0); ALKALINE PHOSPHATASE 117.4 U/L (53-141); ASPARTATE AMINO TRANSFERASE 88.2 U/L (14-36); BILIRUBIN,TOTAL 0.3 mg/dL (0.2-1.3); BLOOD UREA NITROGEN 23.3 mg/dL (7-17); CALCIUM 8.46 mg/dL (8.4-10.2); CARBON DIOXIDE 24.5 mmol/L (22-30.0); CHLORIDE 104.2 mmol/L (98-107); CREATININE 0.98 mg/dL (0.60-1.30); GLUCOSE 213.3 mg/dL (74-106); POTASSIUM 4.52 mmol/L (3.5-5.1); SODIUM 138.8 mmol/L (134.5-145); TOTAL PROTEIN 7.14 g/dL (6.3-8.2)
[2024-01-30 06:06] LABS: BILIRUBIN,URINE Negative (NEGATIVE); CLARITY,URINE Clear (CLEAR); COLOR,URINE Yellow (YELLOW); GLUCOSE, URINE (UA) 2+ (NEGATIVE); KETONES,URINE Negative (NEGATIVE); LEUKOCYTE ESTERASE ,URINE Negative (NEGATIVE); NITRITE,URINE Negative (NEGATIVE); PROTEIN,URINE Negative (NEGATIVE); URINE, BLOOD Negative (NEGATIVE); UROBILINOGEN,URINE 0.2 (0.2)
[2024-01-30] MEDS: DECADRON PO SCH (07:45)
[2024-01-30 08:00] LABS: PROTHROMBIN TIME 9.9 SEC (9.3-11.0)
--- NOTE | 2024-01-30 11:01 | PCM ---
Date of Service Date Seen by Provider: 01/30/24 Time Seen by Provider: 09:00 Admit Day/Time Admission Date: 01/29/24 Admission Time: 20:57 Reason for Admission Chief Complaint: ACUTE HYPOXEMIC,RESP. FAILURE/HYPERCAPNIA,COVID Hospital Provider Hospital Provider: ELIJAH NEW PA-C, [facility] [place] Primary Care Physician Primary Care Physician: TREVER POST MD History of Present Illness History of Present Illness: Patient is an 83 year old female from the custodial with pmhx of dementia, cva, dysphagia, gerd, CKD, liver mass (possibly malignancy), who presented to ER due to low O2. Pt had ambulated to the bathroom and staff noticed her O2 was low, reportedly 60-80%. In the ER she required 2L. She tested positive for covid. She was given solumedrol, levaquin, and duoneb. She was admitted to [facility]. She has been started on remdesivir. She is requiring 1L today, weaning down. She states she has some SOB and a cough. Unreliable historian. Denies pain. ROS limited due to patient's dementia Case Discussed With Case Discussed With: Patient's case was discussed with the ER Physicians, Dr. Mcqueen. [facility] Medical History Gastroesophageal reflux disease K21.9 - Gastro-esophageal reflux disease without esophagitis (ICD-10) Chronic obstructive pulmonary disease Declines annual PFT not on any controller meds. Chronic/stable medical problem 12/26/23 J44.9 - Chronic obstructive pulmonary disease, unspecified (ICD-10) Cervical spine fracture S12.9XXA - Fracture of neck, unspecified, initial encounter (ICD-10) DJD (degenerative joint disease) M19.90 - Unspecified osteoarthritis, unspecified site (ICD-10) Hyperlipidemia E78.5 - Hyperlipidemia, unspecified (ICD-10) Internal hemorrhoids without complication Grade 2, Dr Cobb, 06/27/18 External tags, hemorrhoids, ?prolapse. K64.8 - Other hemorrhoids (ICD-10) Arthritis M19.90 - Unspecified osteoarthritis, unspecified site (ICD-10) Surgical History History of musculoskeletal system surgery Back surgery Z98.890 - Other specified postprocedural states (ICD-10) Status post tonsillectomy Z90.89 - Acquired absence of other organs (ICD-10) Status post hysterectomy Z90.710 - Acquired absence of both cervix and uterus (ICD-10) Status post cholecystectomy Z90.49 - Acquired absence of other specified parts of digestive tract (ICD- 10) Status post appendectomy Z90.49 - Acquired absence of other specified parts of digestive tract (ICD- 10) Status post tonsillectomy and adenoidectomy Z90.89 - Acquired absence of other organs (ICD-10) Family History Mother Hyperlipidemia Cerebrovascular accident Hypertension Social History Smoking and tobacco status: Former smoker Alcohol intake: never Substance use type: does not use Kayla/amish: Baptit Special kayla needs: No Agree to transfusion: Yes Adopted: No Caregiver/support person: No Foster care: No Household members: family and children Housing: house Lives independently: Yes Daycare: family member Number of children: 3 Highest education level completed: some college, no degree Financial difficulty paying for basics: not very hard service: No long-term: No Current occupational status: retired Pets and animals: Yes Leisure activites: reading History of recent travel: No Sexually active: No Do you think of yourself as: straight/heterosexual Current gender identity: female Seatbelt use: always Helmet use: No Drives intoxicated or rides with intoxicated tanker driver: No Water heater temperature set < 120 degrees: Yes Working smoke detector in home: Yes Fire extinguisher in home: Yes Carbon monoxide detector in home: Yes Firearms in home: Yes Firearms unloaded and locked: Yes Allergies Allergies Allergy/AdvReac Type Severity Reaction Status Date / Time amoxicillin AdvReac Rash Verified 01/29/24 19:33 codeine AdvReac GI issues Verified 01/29/24 19:33 Current Medications Home Medications duloxetine 30 mg capsule,delayed release (Cymbalta) 60 mg (2 x 30 mg) PO DAILY 30 days #60 tab-caps 09/26/21 [Rx Confirmed 01/29/24 Last Taken Unknown] hydrocodone 5 mg-acetaminophen 325 mg tablet 1 tab PO BID PRN back #60 tabs 07/17/22 [Rx Confirmed 01/29/24 Last Taken Unknown] acetaminophen 325 mg tablet 325 mg PO TID PRN pain 01/29/24 [History Confirmed 01/29/24 Last Taken Unknown] donepezil 5 mg tablet (Aricept) 10 mg PO BEDTIME 01/29/24 [History Confirmed 01/30/24 Last Taken Unknown] famotidine 20 mg tablet 20 mg PO DAILY 01/29/24 [History Confirmed 01/29/24 Last Taken Unknown] melatonin 3 mg tablet 3 mg PO BEDTIME 01/29/24 [History Confirmed 01/29/24 Last Taken Unknown] saliva substitute combo no.9 (Biotene Dry Mouth Oral Rinse mouthwash) 15 ml mucous membrane BID PRN dry mouth 01/29/24 [History Confirmed 01/29/24 Last Taken Unknown] sennosides 8.6 mg-docusate sodium 50 mg tablet 2 tab-cap PO BID 01/29/24 [History Confirmed 01/29/24 Last Taken Unknown] tizanidine 2 mg tablet 2 mg PO 2XD 01/29/24 [History Confirmed 01/29/24 Last Taken Unknown] atorvastatin 20 mg tablet 20 mg PO BEDTIME 01/30/24 [History Confirmed 01/30/24 Last Taken Unknown] Home Acetaminophen (Acetaminophen 325 Mg Tablet) 650 mg PO Q4H PRN PRN Reason: Mild Pain Hydrocodone Bitart/Acetaminophen (Hydrocodone Bit/Acetaminophen 5/325 Mg Tablet) 1 tab PO BID PRN PRN Reason: MODERATE PAIN Albuterol/Ipratropium (Ipratropium/Albuterol Vial.Neb) 3 ml NEB RTQ6H [facility] Last Admin: 01/30/24 11:34 Dose: 3 ml Atorvastatin Calcium (Atorvastatin Calcium 20 Mg Tablet) 20 mg PO BEDTIME DILEEP Dexamethasone (Dexamethasone 2 Mg Tablet) 6 mg PO DAILYWM2 [facility] Last Admin: 01/30/24 07:45 Dose: 6 mg Donepezil HCl (Donepezil Hcl 10 Mg Tablet) 10 mg PO BEDTIME DILEEP Duloxetine HCl (Duloxetine Hcl 30 Mg Capsule.Dr) 60 mg PO DAILY [facility] Last Admin: 01/30/24 13:17 Dose: 60 mg Enoxaparin Sodium (Enoxaparin Sodium 40 Mg/0.4 Ml Syr) 40 mg SUBCUT DAILY [facility] Last Admin: 01/30/24 13:18 Dose: 40 mg Famotidine (Famotidine 20 Mg Tablet) 20 mg PO QDAC2 [facility] Last Admin: 01/30/24 14:11 Dose: 20 mg Remdesivir 100 mg/ Sodium (Chloride) 100 mls @ 200 mls/hr IV DAILY [facility] Stop: 02/02/24 09:29 Last Admin: 01/30/24 13:17 Dose: 200 mls/hr Melatonin (Melatonin 3 Mg Tablet) 3 mg PO BEDTIME [facility] Ondansetron HCl (Ondansetron Hcl/Pf 4 Mg/2 Ml Sdv) 4 mg IVP Q6H PRN PRN Reason: Nausea / Vomiting Sodium Chloride (0.9% Sodium Chloride 10 Ml Disp.Syrin) 1 syr IVF PRN PRN PRN Reason: To flush IV Tizanidine HCl (Tizanidine Hcl 4 Mg Tablet) 2 mg PO BID [facility] Last Admin: 01/30/24 13:18 Dose: 2 mg Discontinued Medications Albuterol/Ipratropium (Ipratropium/Albuterol Vial.Neb) 3 ml NEB ONCE STA Stop: 01/29/24 19:34 Last Admin: 01/29/24 19:46 Dose: 3 ml Famotidine (Famotidine 20 Mg Tablet) 20 mg PO DAILY [facility] Sodium Chloride (Sodium Chloride) 1,000 mls @ 1,000 mls/hr IV BOLUS ONE Stop: 01/29/24 20:32 Last Infusion: 01/29/24 20:56 Dose: Infused Levofloxacin/Dextrose (Levaquin 750 Mg/150 Ml D5w) 750 mg in 150 mls @ 100 mls/hr IV ONCE ONE Stop: 01/29/24 21:48 Last Admin: 01/29/24 21:05 Dose: 100 mls/hr Remdesivir 200 mg/ Sodium (Chloride) 250 mls @ 250 mls/hr IV ONCE ONE Stop: 01/29/24 21:56 Last Admin: 01/29/24 23:25 Dose: 250 mls/hr Methylprednisolone Sodium Succinate (Methylprednisolone Sod Succ/Pf 125 Mg/2 Ml Vial) 125 mg IM ONCE ONE Stop: 01/29/24 19:34 Last Admin: 01/29/24 19:59 Dose: Not Given Methylprednisolone Sodium Succinate (Methylprednisolone Sod Succ/Pf 125 Mg/2 Ml Vial) 125 mg IVP ONCE ONE Stop: 01/29/24 19:59 Last Admin: 01/29/24 20:01 Dose: 125 mg Opioid Naive vs. Tolerant Does Patient Take Opioids?: No Is Patient Opioid Naive?: Yes What is Opioid Naive?: *Opioid Naive implies the patient is not already taking opioids or not chronically receiving opioids on a daily basis. *PRN dosing is not "usually" associated with tolerance. *Patients are at higher risk of over-sedation and aspiration. Is Patient Opioid Tolerant?: No What is Opioid Tolerant?: *Opioid Tolerance implies less than the expected response to an opioid. *Acquired tolerance is defined by the patient taking 60mg of oral morphine daily (or equianalgesic dose of another opioid) for 1 week or more. *Often associated with chronic pain. *May take more than usual dose to achieve desired pain control. Review of Systems Constitutional: Reports Fatigue Cardiovascular: Denies Chest pain or Edema Respiratory: Reports Cough and Shortness of air Gastrointestinal: Denies Nausea, Vomiting or Abdominal pain Physical examination Most Recent Vital Signs: Most Recent Vital Signs Temperature 97.6 F 01/30/24 10:00 Temperature Source Temporal Artery Scan 01/30/24 10:00 Temperature Source Infrared 01/29/24 19:20 Pulse Rate 115 H 01/30/24 10:00 Respiratory Rate 17 01/30/24 10:00 Blood Pressure 158/88 H 01/30/24 10:00 Blood Pressure Mean 111 01/30/24 10:00 Blood Pressure Right Arm 142/69 01/29/24 22:12 Blood Pressure Location Right Arm 01/30/24 10:00 Blood Pressure Position Supine 01/30/24 05:53 O2 Sat by Pulse Oximetry 93 L 01/30/24 10:00 Oxygen Delivery Method Nasal Cannula 01/30/24 10:00 Oxygen Flow Rate 0.5 01/30/24 10:00 Height 5 ft 4 in 01/29/24 22:12 Weight 145 lb 01/29/24 22:12 Telemetry Type Bedside Monitor 01/30/24 07:00 Telemetry Monitoring Continues 01/30/24 07:00 Telemetry Heart Rate 106 H 01/30/24 07:00 Telemetry SPO2 98 01/30/24 07:00 EKG MD Interval 0.12 01/30/24 07:00 EKG QRS Interval 0.05 L 01/30/24 07:[address]/SR 01/30/24 07:00 Appearance: Positive No Apparent Distress and Other (+Oriented to person and metropolis ) Skin: Positive [place], Warm and Good Turgor HEENT: Positive Normocephalic and Atraumatic Neck: Positive Supple Chest/Lungs: Positive Clear to Auscultation Bilaterally; Negative Rales, Rhonci or Wheezes Heart: Positive Tachycardia GI/: Positive Soft, Nontender, Bowel Sounds Normal and No Distention Neurological: Positive Cranial Nerves Intact, Alert and Other (+generalized weak ness. Oriented to person and metropolis ) Psychiatric: Positive Appropriate Mood and Appropriate Affect; Negative Intact Memory or Good Short-Term Recall Labs This Visit Labs This Visit: Labs This Visit 01/29/24 01/29/24 01/29/24 19:34 19:35 19:47 WBC 9.10 RBC 4.06 L Hgb 13.1 Hct 41.2 MCV 101.5 H MCH 32.3 H MCHC 31.8 RDW Coeff of Ella 12.4 Plt Count 300 Immature Gran % (Auto) 0.2 Neut % (Auto) 54.7 Lymph % (Auto) 31.3 [place] % (Auto) 7.8 Eos % (Auto) 5.3 Baso % (Auto) 0.7 Neut # (Auto) 5.0 Lymph # (Auto) 2.9 [place] # (Auto) 0.7 Eos # (Auto) 0.5 Baso # (Auto) 0.1 Immature Gran # (Auto) 0.0 ESR 14 PT 9.5 INR 0.90 Puncture Site Base Excess O2 Saturation ABG pH ABG pCO2 ABG pO2 ABG HCO3 ABG Total CO2 Fabian Test Hemoglobin Oxyhemoglobin Carboxyhemoglobin Total Hemoglobin O2 Delivery Device Oxygen Liter Flow FiO2 % Sodium 137.0 Potassium 4.60 Chloride 100.8 Carbon Dioxide 28.2 Anion Gap 12.60 BUN 25.5 H Creatinine 1.17 Estimated GFR (MDRD) 44.00 BUN/Creatinine Ratio 21.79 Glucose 176.0 H Lactic Acid 1.44 Calcium 9.19 Magnesium 2.05 Total Bilirubin 0.41 AST 125.6 H ALT 203.8 H Alkaline Phosphatase 137.4 Total Protein 7.17 Albumin 4.43 Globulin 2.74 Albumin/Globulin Ratio 1.61 Procalcitonin 0.10 H Urine Color Yellow Urine Clarity Clear Urine pH 6.0 Ur Specific [place] 1.020 Urine Protein Negative Urine Glucose (UA) 2+ H Urine Ketones Negative Urine Blood Negative Urine Nitrite Negative Urine Bilirubin Negative Urine Urobilinogen 0.2 Ur Leukocyte Esterase Negative Influ A Molecular Assay Negative by naat Influ B Molecular Assay Negative by naat RSV Antigen Negative by naat SARS CoV-2 RNA Rapid MARLENE Positive H 01/29/24 01/30/24 19:54 05:23 WBC 7.49 RBC 3.81 L Hgb 12.4 Hct 38.7 MCV 101.6 H MCH 32.5 H MCHC 32.0 RDW Coeff of Ella 12.3 Plt Count 246 Immature Gran % (Auto) 0.5 Neut % (Auto) 80.4 H Lymph % (Auto) 17.5 [place] % (Auto) 1.3 Eos % (Auto) 0.0 Baso % (Auto) 0.3 Neut # (Auto) 6.0 Lymph # (Auto) 1.3 [place] # (Auto) 0.1 L Eos # (Auto) 0.0 Baso # (Auto) 0.0 Immature Gran # (Auto) 0.0 ESR PT 9.9 INR 0.95 Puncture Site Lt rad Base Excess 6.6 H O2 Saturation 98.0 ABG pH 7.42 ABG pCO2 48.0 H ABG pO2 102.0 H ABG HCO3 31.1 H ABG Total CO2 32.6 H Fabian Test Pos Hemoglobin 1.2 Oxyhemoglobin 95.8 Carboxyhemoglobin 1.0 Total Hemoglobin 12.8 O2 Delivery Device Cannula Oxygen Liter Flow 2.00 FiO2 % 28.0 Sodium 138.8 Potassium 4.52 Chloride 104.2 Carbon Dioxide 24.5 Anion Gap 14.62 BUN 23.3 H Creatinine 0.98 Estimated GFR (MDRD) 54.00 BUN/Creatinine Ratio 23.77 Glucose 213.3 H Lactic Acid Calcium 8.46 Magnesium Total Bilirubin 0.30 AST 88.2 H D ALT 152.0 H D Alkaline Phosphatase 117.4 Total Protein 7.14 Albumin 4.41 Globulin 2.73 Albumin/Globulin Ratio 1.61 Procalcitonin Urine Color Urine Clarity Urine pH Ur Specific [place] Urine Protein Urine Glucose (UA) Urine Ketones Urine Blood Urine Nitrite Urine Bilirubin Urine Urobilinogen Ur Leukocyte Esterase Influ A Molecular Assay Influ B Molecular Assay RSV Antigen SARS CoV-2 RNA Rapid MARLENE Imaging Imaging: EXAM: FRONTAL VIEW OF THE CHEST. HISTORY: The shortness of breath COMPARISON: 08/16/2023 FINDINGS: Cardiac silhouette is normal. No organized infiltrate/consolidation. No visible effusion or pneumothorax. No acute osseous abnormality. IMPRESSION: 1. No acute findings. Review Statement Review Statement: I have independently reviewed and interpreted the labs/EKGs/imaging that were ordered by the ER provider. I have reviewed all outside records that are available currently in our EMR including imaging/notes/labs from previous visits. Plan Plan: 1. Acute hypoxic respiratory failure in setting of covid - Cont dexamethasone, remdesivir, duonebs. Wean O2 when able. 2. Covid - Plan as above. Pt is tachycardic, mildly. Will get CTA to r/o PE. 3. Dementia - Cont home meds 4. Hyperlipidemia - Cont home meds DVT Prophylaxis: Lovenox Time Spent: Greater than 80 minutes spent with patient, 50% of the time spent with this patient was devoted to counseling and coordination of care. [facility] minutes spent discussing advance care planning. Admit to: Inpt Discussed Plan of Care with Dr. Ryan Hauser. Updated son/POA Herbie on patient condition and plan of care. Medications Medication Orders: Medications Ordered Category Date Time Status 0.9 % Sodium Chloride [Saline Flush] Meds 01/29/24 19:33 Active 1 syr IVF PRN PRN Acetaminophen [Tylenol] Meds 01/29/24 20:57 Active 650 mg PO Q4H PRN Dexamethasone [Decadron] Meds 01/30/24 07:30 Active 6 mg PO DAILYWM2 Ipratropium/Albuterol Neb [Duoneb] Meds 01/30/24 00:00 Active 3 ml NEB RTQ6H Ondansetron HCl/Pf [Zofran 4 mg/2 ml] Meds 01/29/24 20:57 Active 4 mg IVP Q6H PRN Remdesivir [Veklury] 100 mg Meds 01/30/24 12:00 Active 0.9 % Sodium Chloride [Sodium Chloride 100Ml] 100 ml IV DAILY
--- NOTE | 2024-01-30 12:06 | CT ---
EXAM: CHEST CTA WITH CONTRAST (PULMONARY ARTERY) HISTORY: Tachycardia. COVID-19 positive. TECHNIQUE: CTA acquisition of the chest from the thoracic inlet to the upper abdomen following IV con trast administration timed to filling of the pulmonary artery. IV Contrast: 100 mL of Omnipaque 350 administered. 3D/MIP/VR images were utilized. CT Dose Reduction Techniques Employed: Yes. COMPARISON: Chest radiograph 01/29/2024. FINDINGS: Pulmonary Embolism: - Diagnostic quality: Respiratory motion limits evaluation of the segmental and subsegmental pulmona ry arteries. - Central (Main/Lobar/Interlobar): No embolus. Normal caliber of the main pulmonary artery. - Peripheral (Segmental/Subsegmental): Limited evaluation. - Right ventricle/Left ventricle ratio: Normal. Lung Parenchyma and Airways: Central airways are patent without endobronchial lesion. There is plate -like scarring or atelectasis in the right lower lobe. No focal consolidation. No suspicious pulmon taqueria nodule. Evaluation for small nodules is limited by respiratory motion. Pleural Space: No pleural effusion or thickening. No pneumothorax. Thoracic Inlet, Mediastinum, and Greta: Right lower neck metallic foreign body. Unremarkable thyroid gland. No lymphadenopathy. Calcified left mediastinal lymph nodes compatible with old granulomatous disease. Heart, Vessels, and Pericardium: The thoracic aorta is not dilated. Mixed calcified and noncalcified atheromatous disease. The heart chambers are not enlarged. There is no pericardial effusion or thi ckening. Bones and Soft Tissues: There is no fracture or lytic lesion. Chest wall soft tissues are unremarkab le. Upper Abdomen: Hepatomegaly and hepatic steatosis. Absent gallbladder with post cholecystectomy. E ctasia of the common bile duct. IMPRESSION: 1. No central pulmonary embolus or evidence of right heart strain. Extensive motion artifact limits evaluation of the segmental and subsegmental pulmonary arteries. 2. No acute airspace disease. 3. Hepatomegaly and hepatic steatosis. All CT scans are performed using dose optimization techniques as appropriate to the performed exam an d include at least one of the following: Automated exposure control, adjustment of the mA and/or kV according t o size, and the use of iterative reconstruction technique.
[2024-01-30] MEDS: NORCO 5-325 PO PRN (13:17)
[2024-01-30] MEDS: CYMBALTA PO SCH (13:17)
[2024-01-30] MEDS: VEKLURY 100 MG in SODIUM CHLORIDE 100ML 100 ML IV SCH (13:17)
[2024-01-30] MEDS: ZANAFLEX PO SCH (13:18)
[2024-01-30] MEDS: LOVENOX SUBCUT SCH (13:18)
[2024-01-30] MEDS ORDERED: PEPCID PO SCH (13:30)
[2024-01-30] MEDS: PEPCID PO SCH (14:11)
[2024-01-30] MEDS: ARICEPT PO SCH (20:28)
[2024-01-30] MEDS: MELATONIN PO SCH (20:29)
[2024-01-30] MEDS: LIPITOR PO SCH (20:29)
[2024-01-31 05:18] LABS: BASOPHILS % (AUTO) 0.2 % (0.0-3.0); HEMATOCRIT 36.5 % (37.0-47.0); HEMOGLOBIN 11.5 g/dl (12.0-16.0); IMMATURE GRANULOCYTE # (AUTO) 0.1 (0.0-1.0); IMMATURE GRANULOCYTE % (AUTO) 0.5 % (0.0-5.0); LYMPHOCYTES # (AUTO) 2.3 K/uL (0.60-3.4); LYMPHOCYTES % (AUTO) 15.9 (10.0-50.0); MEAN CORPUSCULAR HGB CONC 31.5 (31.8-35.4); MEAN CORPUSCULAR VOLUME 101.7 fl (81.0-99.0); MONOCYTES % (AUTO) 6.7 (0-10); NEUTROPHILS # (AUTO) 11.3 K/ul (2.0-6.9); NEUTROPHILS % (AUTO) 76.7 % (42.2-75.2); PLATELET COUNT 255 10^3/uL (140-440); RDW COEFFICIENT OF VARIATION 12.8 % (11.6-14.8); RED BLOOD COUNT 3.59 10^6/ul (4.20-5.40)
[2024-01-31 05:24] LABS: WHITE BLOOD COUNT 14.74 K/ul (4.6-10.2)
[2024-01-31 05:29] LABS: PROTHROMBIN TIME 9.9 SEC (9.3-11.0)
[2024-01-31 05:33] LABS: ALANINE AMINOTRANSFERASE 116.2 U/L (0-35); ALBUMIN 3.8 g/dL (3.5-5.0); ALKALINE PHOSPHATASE 95.1 U/L (53-141); ASPARTATE AMINO TRANSFERASE 55.8 U/L (14-36); BILIRUBIN,TOTAL 0.19 mg/dL (0.2-1.3); BLOOD UREA NITROGEN 30.4 mg/dL (7-17); CALCIUM 8.69 mg/dL (8.4-10.2); CARBON DIOXIDE 26.6 mmol/L (22-30.0); CHLORIDE 103.8 mmol/L (98-107); GLUCOSE 154.4 mg/dL (74-106); POTASSIUM 4.34 mmol/L (3.5-5.1); SODIUM 136.8 mmol/L (134.5-145); TOTAL PROTEIN 6.2 g/dL (6.3-8.2)
--- NOTE | 2024-01-31 09:12 | DCSUM ---
Admission Date Admission Date: 01/29/24 Discharge Date Discharge Date: 01/31/24 Admission Diagnosis Admission Diagnosis: 1. Acute hypoxic respiratory failure in setting of covid 2. Covid Discharge Diagnosis Discharge Diagnosis: 1. Acute hypoxic respiratory failure in setting of covid - resolved 2. Covid 3. Dementia 4. Hyperlipidemia 5. History of liver mass Hospital Provider Hospital Provider: ELIJAH NEW PA-C, [facility] [place] Primary Care Physician Primary Care Physician: TREVER POST MD Summary of History and Physical Summary of History and Physical: Patient is an 83 year old female from [facility] with pmhx of dementia, cva, dysphagia, gerd, CKD, liver mass (possibly malignancy), who presented to ER due to low O2. Pt had ambulated to the bathroom and staff noticed her O2 was low, reportedly 60-80%. In the ER she required 2L. She tested positive for covid. She was given solumedrol, levaquin, and duoneb. She was admitted to [facility]. She has been started on remdesivir. She is requiring 1L today, weaning down. She states she has some SOB and a cough. Unreliable historian. Denies pain. ROS limited due to patient's dementia Hospital Course Subjective: Patient was treated with remdesivir and dexamethasone. She was weaned to RA. She has completed 3 doses of remdesivir. She is up showering independently today. She states "I feel great" today. She does not appear to have any sob. She has been pleasant. HR was mildly elevated yesterday. CTA ruled out PE. HR normalized today. Will continue with dexamethasone outpatient to complete 10 days total. Monitor for worsening symptoms. Son/POMika Stoner has been updated on condition/plan of care daily. Appearance: Pleasant, No Apparent Distress and Alert HEENT: MMM and Supple CVS: No Murmur Abdomen: Soft, Non-Tender and No Distention Respiratory: No Accessory Muscle Use Extremities: No Edema Vital Signs: Most Recent Vital Signs Temperature 98.4 F 01/31/24 05:04 Temperature Source Temporal Artery Scan 01/31/24 05:04 Temperature Source Infrared 01/29/24 19:20 Pulse Rate 73 01/31/24 05:04 Respiratory Rate 16 01/31/24 05:04 Blood Pressure 121/65 01/31/24 05:04 Blood Pressure Mean 83 01/31/24 05:04 Blood Pressure Right Arm 142/69 01/29/24 22:12 Blood Pressure Location Right Arm 01/31/24 05:04 Blood Pressure Position Supine 01/31/24 05:04 O2 Sat by Pulse Oximetry 99 01/31/24 09:06 Oxygen Delivery Method Room Air 01/31/24 09:06 Oxygen Flow Rate 0.5 01/30/24 21:01 Height 5 ft 4 in 01/29/24 22:12 Weight 145 lb 01/29/24 22:12 Telemetry Type Bedside Monitor 01/31/24 07:00 Telemetry Monitoring Continues 01/31/24 07:00 Telemetry Heart Rate 85 01/31/24 07:00 Telemetry SPO2 93 01/31/24 07:00 EKG NM Interval 0.15 01/31/24 07:00 EKG QRS Interval 0.04 L 01/31/24 07:00 Telemetry Strip Reading SR 01/31/24 07:00 Imaging: EXAM: FRONTAL VIEW OF THE CHEST. HISTORY: The shortness of breath COMPARISON: 08/16/2023 FINDINGS: Cardiac silhouette is normal. No organized infiltrate/consolidation. No visible effusion or pneumothorax. No acute osseous abnormality. IMPRESSION: 1. No acute findings. EXAM: CHEST CTA WITH CONTRAST (PULMONARY ARTERY) HISTORY: Tachycardia. COVID-19 positive. TECHNIQUE: CTA acquisition of the chest from the thoracic inlet to the upper abdomen following IV contrast administration timed to filling of the pulmonary artery. IV Contrast: 100 mL of Omnipaque 350 administered. 3D/MIP/VR images were utilized. CT Dose Reduction Techniques Employed: Yes. COMPARISON: Chest radiograph 01/29/2024. FINDINGS: Pulmonary Embolism: - Diagnostic quality: Respiratory motion limits evaluation of the segmental and subsegmental pulmonary arteries. - Central (Main/Lobar/Interlobar): No embolus. Normal caliber of the main pulmonary artery. - Peripheral (Segmental/Subsegmental): Limited evaluation. - Right ventricle/Left ventricle ratio: Normal. Lung Parenchyma and Airways: Central airways are patent without endobronchial lesion. There is plate-like scarring or atelectasis in the right lower lobe. No focal consolidation. No suspicious pulmonary nodule. Evaluation for small nodules is limited by respiratory motion. Pleural Space: No pleural effusion or thickening. No pneumothorax. Thoracic Inlet, Mediastinum, and Greta: Right lower neck metallic foreign body. Unremarkable thyroid gland. No lymphadenopathy. Calcified left mediastinal lymph nodes compatible with old granulomatous disease. Heart, Vessels, and Pericardium: The thoracic aorta is not dilated. Mixed calcified and noncalcified atheromatous disease. The heart chambers are not enlarged. There is no pericardial effusion or thickening. Bones and Soft Tissues: There is no fracture or lytic lesion. Chest wall soft tissues are unremarkable. Upper Abdomen: Hepatomegaly and hepatic steatosis. Absent gallbladder with post cholecystectomy. Ectasia of the common bile duct. IMPRESSION: 1. No central pulmonary embolus or evidence of right heart strain. Extensive motion artifact limits evaluation of the segmental and subsegmental pulmonary arteries. 2. No acute airspace disease. 3. Hepatomegaly and hepatic steatosis. Lab Results Last 24 Hours: 01/31/24 01/29/24 05:13 19:47 WBC 14.74 H D RBC 3.59 L Hgb 11.5 L Hct 36.5 L MCV 101.7 H MCH 32.0 H MCHC 31.5 L RDW Coeff of Ella 12.8 Plt Count 255 Immature Gran % (Auto) 0.5 Neut % (Auto) 76.7 H Lymph % (Auto) 15.9 Cooke % (Auto) 6.7 Eos % (Auto) 0.0 Baso % (Auto) 0.2 Neut # (Auto) 11.3 H Lymph # (Auto) 2.3 Cooke # (Auto) 1.0 Eos # (Auto) 0.0 Baso # (Auto) 0.0 Immature Gran # (Auto) 0.1 PT 9.9 INR 0.95 Sodium 136.8 Potassium 4.34 Chloride 103.8 Carbon Dioxide 26.6 Anion Gap 10.74 BUN 30.4 H Creatinine 1.00 Estimated GFR (MDRD) 53.00 BUN/Creatinine Ratio 30.40 Glucose 154.4 H D Calcium 8.69 Total Bilirubin 0.19 L AST 55.8 H D ALT 116.2 H D Alkaline Phosphatase 95.1 C-Reactive Prot, Quant 7 Total Protein 6.20 L Albumin 3.80 Globulin 2.40 Albumin/Globulin Ratio 1.58 Discharge Instructions Discharge Planning: Discharge Planning > [address] Ryan Hauser. Discharge Medications: Medications at Discharge (Home Meds & RX) Discharge Plan Discharge Discharge Orders: Discharge Patient (ONCE); Ordered 01/31/24 Ordered By: ELIJAH NEW Activity Restrictions/Additional Instructions: DISCHARGE TO SNF FINISH REMAINDER OF DEXAMETHASONE, 7 MORE DAYS STARTING 01/31 DX: ACUTE RESPIRATORY FAILURE, COVID COVID ISOLATION PER DETENTION POLICY RETURN WITH WORSENING SYMPTOMS O2 PRN, HAS BEEN ON RA HERE DIET: PER [place] DIET ACTIVITY: TOLERATED, FALL PRECAUTIONS Care Plan Goals: Problem: Impaired Respiratory Status Goal: Exhibit optimal respiratory function Instructions: Activities as tolerated Apply oxygen as ordered Elevate head of bed Notify MD of increased congestion Patient Disposition: TRANSFER SNF Prescriptions: New dexamethasone 6 mg tablet 6 mg PO DAILY 7 Days Qty: 7 0RF Rx Instructions: STARTING 01/31 Continued duloxetine [Cymbalta] 30 mg capsule,delayed release(DR/EC) 60 mg PO DAILY 30 Days Qty: 60 1RF Rx Instructions: 1 tablet daily hydrocodone-acetaminophen 5-325 mg tablet 1 tab PO BID PRN (Reason: back) Qty: 60 0RF Biotene Dry Mouth Oral Rinse Mouthwash 15 ml mucous membrane BID PRN (Reason: dry mouth) Rx Instructions: swish for 15-30 secs , then spit out; do not swallow famotidine 20 mg tablet 20 mg PO DAILY melatonin 3 mg tablet 3 mg PO BEDTIME sennosides-docusate sodium 8.6-50 mg tablet 2 tab-cap PO BID acetaminophen 325 mg tablet 325 mg PO TID PRN (Reason: pain) donepezil [Aricept] 5 mg tablet 10 mg PO BEDTIME tizanidine 2 mg tablet 2 mg PO 2XD atorvastatin 20 mg tablet 20 mg PO BEDTIME Rx Instructions: 1 tablet daily Did you review [place] DIRECTOR OF EMERGENCY NURSING for ALL controlled substances?: Not Applicable Discussed opioids are addictive and Narcan is available by prescription or from pharmacy.: No Condition: Stable
[2024-01-31 10:33] VITALS: BP 123/65; PULSE 82; RESP 14; TEMP 97.2
== END 2024-01-31 11:04 | DRG 177 ==
LOC: ED 19:17 → SCU 21:28
PROVIDERS: ADMIT Hospitalist; ATTEND Physician Assistant
DX: F03.90 Unspecified dementia, unspecified severity, without behavioral disturbance, psychotic disturbance, mood disturbance, and anxiety; K21.9 Gastro-esophageal reflux disease without esophagitis; E78.5 Hyperlipidemia, unspecified; J96.01 Acute respiratory failure with hypoxia; U07.1 COVID-19; J12.82 Pneumonia due to coronavirus disease 2019; Z86.73 Personal history of transient ischemic attack (TIA), and cerebral infarction without residual deficits; Z87.891 Personal history of nicotine dependence; R16.0 Hepatomegaly, not elsewhere classified; N18.9 Chronic kidney disease, unspecified